=== PATIENT | female | born 1965 | race Hispanic/Latino ===

== ENCOUNTER 2018-04-09 10:15 | Day surgery (SDC) | payer OTHER ==
[2018-04-07 17:13] LABS: Absolute Lymphocytes (CBC) 3.2 K/uL (0.7-4.9); Absolute Monocytes 0.5 K/uL (0.1-1.3); Basophils % 1.1 % (0-1.3); Eosinophils % 0.7 % (0-4.4); Hematocrit 43.3 % (36.0-45.0); Lymphocytes % 32.4 % (15.3-44.8); MCH 29.4 pg (27.0-35.0); MCV 88.6 fL (80-100); MPV 9.8 fL (7.6-11.3); Monocytes % 5.5 % (3.3-12.3); RBC Red Blood Cell Count 4.88 M/uL (3.86-4.86)
[2018-04-07 17:45] LABS: BUN Blood Urea Nitrogen 15 mg/dL (6-20); Bicarbonate 26 mEq/L (21-31); Potassium 4.5 mEq/L (3.6-5.0); Sodium Level 129 mEq/L (135-145)
[2018-04-07 17:52] LABS: Glucose Level 518 mg/dL (65-120)
--- NOTE | 2018-04-07 23:01 | EKG ---
Test Date: 2018-04-07 Test Time: 16:39:27 Sales Assoc: DELBERT MEASUREMENT RESULTS: Intervals: Rate: 86 MT: 140 QRSD: 84 QT: 392 QTc: 469 [place]: P: 50 MT: 140 QRS: -9 T: 30 INTERPRETIVE STATEMENTS: Normal sinus rhythm Possible Left atrial enlargement Borderline ECG Compared to ECG 10/24/2017 18:30:26 Prolonged QT interval no longer present Electronically Signed On 04-07-18 22:59:54 CDT by Ryder Benjamin
--- OUTSIDE RECORDS SUMMARY | 2018-04-09 10:18 | XMS REPORT | Clinical Summary ---
:1965 Author Organization [facility] Address [address] [place] [address] Care Team Providers Name Role Phone Arslan Cote MD Primary Care Provider Allergies No Known Allergies Current Medications Prescription Sig. Disp. Refills Start Date End Date Status insulin detemir Inject 40 Active (LEVEMIR) 100 Units under unit/mL injection the skin 2 (two) times a day. insulin ASPART Inject 20 Active (NovoLOG) 100 Units under unit/mL injection the skin 3 (three) times a day before meals. aspirin (ECOTRIN) Take 81 mg by Active 81 MG enteric mouth daily. coated tablet estrogens, Take 0.625 mg Active conjugated, by mouth (PREMARIN) 0.625 MG daily. Patient tablet takes daily metFORMIN Take 1,000 mg Active (GLUCOPHAGE) 1,000 by mouth daily mg tablet with breakfast. gabapentin Take 600 mg by Active (NEURONTIN) 300 mg mouth nightly. capsule acyclovir (ZOVIRAX) Take 800 mg by Active 800 MG tablet mouth daily. diltiazem CD Take 240 mg by Active (CardIZEM CD) 240 mouth every MG 24 hr capsule evening. pantoprazole Take 40 mg by Active (PROTONIX) 40 MG EC mouth daily. tablet metoprolol tartrate Take 25 mg by Active (LOPRESSOR) 25 mg mouth 2 (two) tablet times a day. lisinopril Take 5 mg by Active (PRINIVIL,ZESTRIL) mouth daily. 5 mg tablet simvastatin (ZOCOR) Take 20 mg by 07/13/2017 Discontinued 20 MG tablet mouth nightly. atorvastatin Take 1 tablet 30 tablet 0 07/13/2017 08/12/2017 (LIPITOR) 40 MG (40 mg total) tablet by mouth nightly for 30 days. Active Problems Problem Noted Date Chest pain 07/12/2017 Palpitations 07/12/2017 Encounters Date Type Specialty Care Team Description 07/13/2017 Documentation General Internal Andrew Stack RN 07/13/2017 Documentation General Internal Andrew Stack RN 07/13/2017 Nurse Only General Internal Andrew Stack RN 07/13/2017 Procedure Pass Procedural Cardiology 07/13/2017 Surgery Procedural Jj Guevara Cv selective coronary Cardiology MD Tanisha angiography [36926 (CPT)] 07/12/2017 - Emergency General Internal Tri, [facility] Palpitations (Primary Dx); 07/13/2017 Andrew Little MD Chest pain, unspecified type; Kaila Levi MD SOB (shortness of breath); Uncontrolled type 2 diabetes mellitus with complication, with long- term current use of insulin after 04/08/2017 Immunizations Name Dates Previously Given Next Due FLUCELVAX QUAD PF (0.5mL syringe) 07/13/2017 Pneumococcal Conjugate 13-Valent 07/13/2017 Social History Tobacco Use Types Packs/Day Years Used Date Never Smoker Alcohol Use Drinks/Week oz/Week Comments No Sex Assigned at Date Recorded Not on file Last Filed Vital Signs Vital Sign Reading Time Taken Blood Pressure 138/73 07/13/2017 7:49 PM CDT Pulse 75 07/13/2017 7:49 PM CDT Temperature 36.4 C (97.5 F) 07/13/2017 7:49 PM CDT Respiratory Rate 18 07/13/2017 7:49 PM CDT Oxygen Saturation 95% 07/13/2017 7:49 PM CDT Inhaled Oxygen Concentration - - Weight - - Height 152.4 cm (5') 07/12/2017 3:37 PM CDT Body Mass Index - - Plan of Treatment Health Maintenance Due Date Last Done Comments DIABETIC FOOT EXAM 1974 DIABETIC RETINAL EYE EXAM 1974 URINE MICROALBUMIN 1974 CERVICAL CANCER SCREENING 1985 BREAST CANCER SCREENING 2014 COLON CANCER SCREENING 2014 SHINGRIX VACCINE (#1) 2014 INFLUENZA VACCINE 05/26/2018 07/13/2017 Procedures Procedure Name Priority Date/Time Associated Comments Diagnosis CV SELECTIVE CORONARY Routine 07/13/2017 4:14 Results for this ANGIOGRAPHY PM CDT procedure are in the results section. after 04/08/2017 Results POC glucose (07/13/2017 9:44 PM)Only the most recent of5 resultswithin the time period is included. 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 Component Value Ref Range Ventricular rate 89 Atrial rate 89 [place] interval 154 QRSD interval 76 QT interval 388 QTC interval 472 P axis 1 36 QRS axis 1 -9 T wave axis 17 EKG impression Normal sinus rhythm-Normal ECG-In automated comparison with ECG of 13-JUL-2017 05:50,-No significant change was found- Specimen Performing Laboratory [facility] MUSE [address] [place] [address] CBC with platelet and differential (07/13/2017 7:39 AM)Only the most recent of2 resultswithin the time period is included. Component Value Ref Range WBC 10.11 4.50 - 11.00 k/uL RBC 4.20 4.20 - 5.50 m/uL HGB 12.7 12.0 - 16.0 g/dL HCT 38.4 37.0 - 47.0 % MCV 91.4 82.0 - 100.0 fL MCH 30.2 27.0 - 34.0 pg MCHC 33.1 31.0 - 37.0 g/dL RDW - SD 45.1 37.0 - 55.0 fL MPV 10.9 8.8 - 13.2 fL Platelet count 368 150 - 400 k/uL Nucleated RBC 0.00 /100 WBC Neutrophils 63.5 39.0 - 69.0 % Lymphocytes 29.9 25.0 - 45.0 % Monocytes 4.6 0.0 - 10.0 % Eosinophils 1.3 0.0 - 5.0 % Basophils 0.4 0.0 - 1.0 % Immature granulocytes 0.3Comment: "Immature granulocytes" 0.0 - 1.0 % (promyelocytes, myelocytes, metamyelocytes) Specimen Performing Laboratory Blood [facility] DEPARTMENT OF PATHOLOGY AND GENOMIC MEDICINE [address] [place] [address] Hemoglobin A1c (07/13/2017 7:39 AM) Component Value Ref Range Hemoglobin A1C 8.8 (H) 4.0 - 5.6 % Comment: HbA1c cutoffs for diagnosing diabetes: 4.0% - 5.6%=normal 5.7% - 6.4%=increased risk for diabetes (prediabetes) >=6.5%=diabetes Goals for glycemic control (ADA 2016) < 7.0%Target for non adults with diabetes. More or less stringent targets may be appropriate for individual patients. <7.5% Target for Children and adolescents with type 1 diabetes. Specimen Performing Laboratory Blood [facility] DEPARTMENT OF PATHOLOGY AND GENOMIC MEDICINE [address] [place] [address] Estimated GFR (07/13/2017 4:00 AM)Only the most recent of2 resultswithin the time period is included. Component Value Ref Range GFR Non Af Amer >90 mL/min/1.73 m2 GFR Af Amer >90 mL/min/1.73 m2 Comment: Chronic kidney disease: <60 mL/min/1.73m2 Kidney failure: <15 mL/min/1.73m2 The estimated GFR is calculated from the IDMS-traceable Modification of Diet in Renal Disease Equation. The accuracy of the calculation is poor when the creatinine is normal. Calculated values >90 mL/min/1.73m2 are not reported. This equation has not been validated in children (<18 years), women, the elderly (>70 years), or ethnic groups other than Caucasians and Americans. Specimen Performing Laboratory Plasma specimen [facility] DEPARTMENT OF PATHOLOGY AND GENOMIC MEDICINE [address] [place] [address] Troponin (07/13/2017 4:00 AM)Only the most recent of3 resultswithin the time period is included. Component Value Ref Range Troponin <0.30 0.00 - 0.30 ng/mL Comment: 0.30 - 1.49 ng/mlMay indicate increased risk of acute coronary syndrome. >=1.5 ng/mlConsistent with acute myocardial infarction. The diagnostic value of a single normal or non-diagnostic result is questionable.Serial samples at 2-6 hour intervals are required to rule out acute myocardial injury. Specimen Performing Laboratory Plasma specimen [facility] DEPARTMENT OF PATHOLOGY AND GENOMIC MEDICINE [address] [place] [address] Thyroid stimulating hormone (07/13/2017 4:00 AM) Component Value Ref Range TSH 1.36 0.27 - 4.20 uIU/mL Specimen Performing Laboratory Plasma specimen [facility] DEPARTMENT OF PATHOLOGY AND GENOMIC MEDICINE [address] [place] [address] Lactic acid level (07/13/2017 4:00 AM)Only the most recent of2 resultswithin the time period is included. Component Value Ref Range Lactic acid 2.0 0.5 - 2.2 mmol/L Specimen Performing Laboratory Blood [facility] DEPARTMENT OF PATHOLOGY AND GENOMIC MEDICINE [address] [place] [address] Lipid panel (07/13/2017 4:00 AM) Component Value Ref Range Cholesterol 125 <200 mg/dL Triglycerides 514 (H) <150 mg/dL HDL cholesterol 28 (L) >40 mg/dL LDL cholesterol 41Comment: Result obtained by direct LDL <100 mg/dL measurement Lipid panel interpretation SeeBelow Comment: Total Cholesterol (mg/dL) <200 Desirable 196-930Nvinnlwcpl-wzhg >=240High Triglycerides (mg/dL) <150 Normal 226-924Drwoawcvel-fsvf 200-499High >=500Very high HDL Cholesterol (mg/dL) <40Low (male) <40Low (female) LDL Cholesterol (mg/dL) <100 Optimal 100-129Near or above optimal 886-047Ignvsvxjht-ueqm 160-189High >=190Very high Risk Catergories that modify LDL goals. Risk CatergoriesLDL goal (mg/dL) CHD and CHD risk equivalent<100 (10-year risk >20%) Multiple (2+) risk factors <130 (10-year risk=<20%) 0-1 risk factors <160 (<10-year risk) Defining levels of lipids in metabolic syndrome Triglycerides>=150 mg/dL HDL Cholesterol Men<40 mg/dL Women<40 mg/dL Non-HDL cholesterol is a second target for therapy in persons with high triglycerides (>=200 mg/dL) Specimen Performing Laboratory Plasma specimen [facility] DEPARTMENT OF PATHOLOGY AND [facility] MEDICINE [address] [place] [address] Basic metabolic panel (07/13/2017 4:00 AM) Component Value Ref Range Sodium 136 135 - 148 mEq/L Potassium 3.9 3.5 - 5.0 mEq/L Chloride 98 98 - 112 mEq/L CO2 22 (L) 24 - 31 mEq/L Anion gap 16 (H) 7 - 15 mEq/L Comment: Starting from January , anion gap calculation no longer incorporates potassium. Please note the change. BUN 13 6 - 20 mg/dL Creatinine 0.4 (L) 0.5 - 0.9 mg/dL Glucose 278 (H) 65 - 99 mg/dL Calcium 8.8 8.3 - 10.2 mg/dL Specimen Performing Laboratory Plasma specimen [facility] DEPARTMENT OF PATHOLOGY AND [facility] MEDICINE [address] [place] [address] Urinalysis, automated with microscopy (07/13/2017 3:40 AM) Component Value Ref Range Color, UA Yellow Appearance, UA Clear Specific gravity, UA 1.022 1.001 - 1.035 pH, UA 5.0 5.0 - 8.5 Protein, UA Negative Negative Glucose, UA 3+ (A) Negative Ketones, UA Negative Negative Bilirubin, UA Negative Negative Blood, UA Negative Negative Nitrite, UA Negative Negative Urobilinogen, UA <2.0 <2.0 Leukocyte esterase, UA Negative Negative Epithelial cells, UA 5 /HPF WBC, UA 2 0 - 4 /HPF RBC, UA 1 0 - 2 /HPF Bacteria, UA Few None seen Yeast, UA None seen Yeast with pseudohyphae, UA None seen Specimen Performing Laboratory Urine [facility] DEPARTMENT OF PATHOLOGY AND [facility] MED[facility] [address] [place] [address] Beta hydroxybutyrate (07/12/2017 10:42 PM) Component Value Ref Range Beta hydroxybutyrate 0.40 (H) 0.02 - 0.27 mmol/L Specimen Performing Laboratory Serum [facility] DEPARTMENT OF PATHOLOGY AND [address] [address] Magnesium level (07/12/2017 10:42 PM) Component Value Ref Range Magnesium 1.9 1.6 - 2.6 mg/dL Specimen Performing Laboratory Blood [facility] DEPARTMENT OF PATHOLOGY AND [facility] MED[facility] [address] [place] [address] Ionized calcium (07/12/2017 10:42 PM) Component Value Ref Range pH 7.46 Ionized calcium 1.07 (L) 1.11 - 1.32 mmol/L Specimen Performing Laboratory Blood [facility] DEPARTMENT OF PATHOLOGY AND [address] [address] Partial thromboplastin time, activated (07/12/2017 4:30 PM) Component Value Ref Range PTT 28.7 23.0 - 36.0 sec Comment: PTT therapeutic range for unfractionated heparin is 61.0-112.0 seconds which corresponds to Anti-Xa 0.3-0.7 U/ml. Specimen Performing Laboratory Blood [facility] DEPARTMENT PATHOLOGY [address] [address] Prothrombin time with INR (07/12/2017 4:30 PM) Component Value Ref Range Prothrombin time 11.2 (L) 12.0 - 15.0 sec INR 0.8 Comment: The International Normalized Ratio (INR) is a therapeutic monitoring tool for patients who are stable on oral anticoagulant therapy. An INR of 2.0-3.0 is suggested for deep vein thrombosis/pulmonary embolism. Specimen Performing Laboratory Blood [facility] DEPARTMENT OF PATHOLOGY AND [facility] MED[facility] [address] [place] [address] B natriuretic peptide (07/12/2017 4:30 PM) Component Value Ref Range BNP 33 0 - 100 pg/mL Specimen Performing Laboratory Blood [facility] PATHOLOGY [address] [address] Creatine kinase, total (CPK) (07/12/2017 4:30 PM) Component Value Ref Range Creatine kinase 48 26 - 192 U/L Specimen Performing Laboratory Plasma specimen [facility] DEPARTMENT OF PATHOLOGY AND [address] [address] Comprehensive metabolic panel (07/12/2017 4:30 PM) Component Value Ref Range Sodium 142 135 - 148 mEq/L Potassium 3.9 3.5 - 5.0 mEq/L Chloride 101 98 - 112 mEq/L CO2 22 (L) 24 - 31 mEq/L Anion gap 19 (H) 7 - 15 mEq/L Comment: Starting from January , anion gap calculation no longer incorporates potassium. Please note the change. BUN 10 6 - 20 mg/dL Creatinine 0.2 (L) 0.5 - 0.9 mg/dL Glucose 204 (H) 65 - 99 mg/dL Calcium 7.6 (L) 8.3 - 10.2 mg/dL Protein 7.2 6.3 - 8.3 g/dL Comment: [place] 4.6-7.0 g/dL 1 week 4.4-7.6 g/dL 7 months-1year5.1-7.3 g/dL 1-2 years5.6-7.5 g/dL >3 years6.0-8.0 g/dL 18-150 6.3-8.3 g/dL Albumin 3.6 3.5 - 5.0 g/dL A/G ratio 1.0 0.7 - 3.8 Alkaline phosphatase 103 35 - 104 U/L AST 21 10 - 35 U/L ALT 19 5 - 50 U/L Total bilirubin <0.2 0.0 - 1.2 mg/dL Specimen Performing Laboratory Plasma specimen [facility] DEPARTMENT OF PATHOLOGY AND GENOMIC MEDICINE [address] [place] [address] XR Chest 2 Vw (07/12/2017 4:24 PM) Specimen Performing Laboratory [facility] [address] [place] [address] Narrative EXAMINATION:XR CHEST 2 VW CLINICAL HISTORY:Chest Tube Removal COMPARISON:None IMPRESSION: 1.Lungs are clear and the heart size is normal. 2.The vessels are not congested. There are no pleural effusions. [facility]-[id number] Procedure Note Interface, Radiology Results Incoming - 07/12/2017 4:29 PM CDT EXAMINATION: XR CHEST 2 VW CLINICAL HISTORY: Chest Tube Removal COMPARISON: None IMPRESSION: 1. Lungs are clear and the heart size is normal. 2. The vessels are not congested. There are no pleural effusions. [facility]-[id number] after 04/08/2017 Insurance Payer Benefit Plan / Group Subscriber ID Type Phone Address MEDICARE MEDICARE PART A AND B xxxxxxxxxx Medicare [place], [place] Home: [address] [phone] [place], [place] [id number]
[2018-04-09] MEDS ORDERED: LIDOCAINE 1% W/EPI 1:100,000 MDV 50 ML VIAL ONE (10:23)
[2018-04-09] MEDS ORDERED: CEFAZOLIN/SWI 1gm 1 GM/10 ML SYR ONE (10:29)
[2018-04-09] MEDS ORDERED: NA CHLORIDE 0.9% 1,000 ML ONE (10:29)
[2018-04-09] MEDS ORDERED: FENTANYL CITR 100 MCG/2 ML ONE (11:32)
[2018-04-09] MEDS ORDERED: MIDAZOLAM HCL 2 MG/2 ML INJ ONE (11:32)
[2018-04-09] MEDS ORDERED: LIDOCAINE 1% MPF 5 ML VIAL ONE (11:32)
[2018-04-09] MEDS ORDERED: PROPOFOL 200 MG/20 ML VIAL IV ONE (11:32)
[2018-04-09] MEDS ORDERED: TRIAMCINOLONE ACETON 40 MG/ML VIAL ONE ×2 (11:36→11:55)
[2018-04-09] MEDS ORDERED: BUPIVACA 0.5%/EPI 0.0005%/PF 10 ML VIAL ONE (11:40)
[2018-04-09] MEDS ORDERED: ROCURONIUM 50 MG/5 ML VIAL IV ONE (11:52)
[2018-04-09] MEDS ORDERED: KETOROLAC 30 MG/ML INJ ONE (12:03)
--- NOTE | 2018-04-09 12:14 | P.BOP ---
Preoperative diagnosis: left shoulder adhesive capsulitis with rotator cuff pathology Postoperative diagnosis: same Primary procedure: left shoulder manipulation under anesthesia Estimated blood loss: 0 ccs Anesthesia: General Complications: None Transferred to: Recovery Room Condition: Good
[2018-04-09] MEDS ORDERED: SUCCINYLCHOLINE 20 MG/ML (10 ML) IV ONE (12:15)
[2018-04-09] MEDS: MEPERIDINE HCL 25 MG/0.5 ML ONE ×2 (12:36→12:41)
--- NOTE | 2018-04-09 12:42 | RAD REPORT ---
EXAM DESCRIPTION: RAD - Shoulder Left 2 View - 04/09/2018 12:26 pm CLINICAL HISTORY: EUA SHOULDER Pain COMPARISON: No comparisons FINDINGS: Fluoroscopic imaging is submitted from EUA procedure of the left shoulder. Two static expo sures were obtained.
[2018-04-09] MEDS ORDERED: CODEINE 30MG/APAP 300MG TAB ONE (13:34)
[2018-04-09 13:38] VITALS: BP 115/78; TEMP 97.4; O2SAT 98
--- NOTE | 2018-04-10 01:05 | OP ---
Date of Procedure: 04/09/2018 Surgeon: Kenrick Mcdonough MD Preoperative Diagnosis: Probable left shoulder adhesive capsulitis with accompanying impingement and rotator cuff pathology. Postoperative Diagnosis: Probable left shoulder adhesive capsulitis with accompanying impingement an d rotator cuff pathology. Procedure: Left shoulder manipulation under anesthesia. Estimated Blood Loss: Zero cc. Complications: There were no complications. Specimens: No pathology specimens sent. It should also be noted there was an injection of Marcaine with epinephrine as well as Kenalog at the conclusion of the case. Indication For Operation: Ms. Crow is a patient who has been having shoulder pain for approximately 3 months. This occurred without incident, gradually becoming worse and worse. This continued despi te an injection as well as other conservative means. MRI does demonstrate some rotator cuff patholog y, however, limitations of motion are fairly significant including inability to externally rotate pas t neutral, also elevation and abduction of approximately 120 degrees. It is felt that she is most li hailey suffering from frozen shoulder with rotator cuff pathology. I have discussed with fabienne caceres her and her family that operating on rotator cuff pathology in this age group is to be avoided if possible, and that her primary pathology may be a frozen shoulder. Also we would not like to operate on the rotator cuff in the presence of a frozen shoulder. Therefore, will proceed with examination under anesthesia, and manipulation under anesthesia if needed. If the shoulder is not limited by any adhesive banding, then we would pursue operative intervention of the rotator cuff. They state they understand everything as presented and wished to proceed. Description Of Procedure: The patient was taken to the operating room. She is in the supine positio n. General anesthesia was obtained by Anesthesia staff. This was followed by application of paralyt ic. Following this, the arm was then examined. It was lifted to approximately 140 degrees. There i s some fairly faint crepitation, which is consistent with frozen shoulder at approximately 140 degree s, and then fairly easily can move it up to 180 degrees of elevation. After this, attention has been turned to external rotation in the elevated position with anterior pressure, to avoid dislocation is performed. There was a rather more significant feeling of release of adhesive bands with this exter nal rotation, then bringing it down to neutral external rotation is done with even more at this time fairly significant release of adhesive banding. Following this, it was then brought through a full r erickson of motion and now thus have full easy range of motion throughout. A C-arm picture was taken, wh ich demonstrates no dislocation or injury to the proximal humerus. An injection of Marcaine as well as corticosteroids has been placed in the subacromial space using sterile technique. The patient was then awakened, and taken to the recovery room in good condition. There were no complications. RICH Voice ID: [id number] Report ID: [id number]
== END 2018-04-09 13:59 | disposition home or self-care (01) ==
LOC: OR 10:15
PROVIDERS: ATTEND Orthopaedic Surgery
PROC: 0RNKXZZ Release Left Shoulder Joint, External Approach (ICD-10-PCS; principal; 2018-04-09 11:30)
DX: M75.02 Adhesive capsulitis of left shoulder (principal); M75.42 Impingement syndrome of left shoulder; E11.9 Type 2 diabetes mellitus without complications; I10 Essential (primary) hypertension
CPT/HCPCS: 23700; 36415; 73030; 80048; 82962 ×2; 85025; 93005; J0330; J2175; J2250; J3010; J3301 ×2; J7030; J0690

== ENCOUNTER 2018-06-21 10:46 | Observation (INO) | payer OTHER ==
--- OUTSIDE RECORDS SUMMARY | 2018-06-21 13:08 | XMS REPORT | Clinical Summary ---
:1965 Author Organization [facility] Address [address] [place] [address] Care Team Providers Name Role Phone Arslan [...] Cv selective coronary Cardiology MD Tanisha angiography [04977 (CPT)] 07/12/2017 - Emergency General Internal Tri, [facility] Palpitations (Primary Dx); 07/13/2017 Andrew Little MD Chest pain, unspecified type; Kaila Levi MD SOB (shortness of breath); Uncontrolled type 2 diabetes mellitus with complication, with long- term current use of insulin after 06/20/2017 Immunizations Name Dates Previously Given Next Due [...] Procedure Name Priority Date/Time Associated Comments Diagnosis POC GLUCOSE Routine 07/13/2017 9:44 Results for this PM CDT procedure are in the results section. POC GLUCOSE Routine 07/13/2017 4:43 Results for this PM CDT procedure are in the results section. CV SELECTIVE CORONARY Routine 07/13/2017 4:14 Results for this ANGIOGRAPHY PM CDT procedure are in the results section. POC GLUCOSE Routine 07/13/2017 11:53 Results for this AM CDT procedure are in the results section. ECG 12-LEAD STAT 07/13/2017 8:51 Results for this AM CDT procedure are in the results section. HC COMPLETE BLD COUNT Routine 07/13/2017 7:39 Results for this W/AUTO DIFF AM CDT procedure are in the results section. HEMOGLOBIN A1C Routine 07/13/2017 7:39 Results for this AM CDT procedure are in the results section. POC GLUCOSE Routine 07/13/2017 7:34 Results for this AM CDT procedure are in the results section. ECG 12-LEAD Routine 07/13/2017 5:50 Results for this AM CDT procedure are in the results section. ESTIMATED GFR Routine 07/13/2017 4:00 Results for this AM CDT procedure are in the results section. LACTIC ACID LEVEL Routine 07/13/2017 4:00 Results for this AM CDT procedure are in the results section. BASIC METABOLIC PANEL Routine 07/13/2017 4:00 Results for this AM CDT procedure are in the results section. TROPONIN Routine 07/13/2017 4:00 Results for this AM CDT procedure are in the results section. THYROID STIMULATING Routine 07/13/2017 4:00 Results for this HORMONE AM CDT procedure are in the results section. LIPID PANEL Routine 07/13/2017 4:00 Results for this AM CDT procedure are in the results section. URINALYSIS, AUTOMATED Routine 07/13/2017 3:40 Results for this WITH MICROSCOPY AM CDT procedure are in the results section. POC GLUCOSE Routine 07/12/2017 10:56 Results for this PM CDT procedure are in the results section. IONIZED CALCIUM STAT 07/12/2017 10:42 Results for this PM CDT procedure are in the results section. MAGNESIUM LEVEL STAT 07/12/2017 10:42 Results for this PM CDT procedure are in the results section. LACTIC ACID LEVEL STAT 07/12/2017 10:42 Results for this PM CDT procedure are in the results section. BETA HYDROXYBUTYRATE STAT 07/12/2017 10:42 Results for this PM CDT procedure are in the results section. TROPONIN STAT 07/12/2017 10:42 Results for this PM CDT procedure are in the results section. PARTIAL THROMBOPLASTIN STAT 07/12/2017 4:30 Results for this TIME (PTT) PM CDT procedure are in the results section. ESTIMATED GFR STAT 07/12/2017 4:30 Results for this PM CDT procedure are in the results section. B NATRIURETIC PEPTIDE STAT 07/12/2017 4:30 Results for this PM CDT procedure are in the results section. TROPONIN STAT 07/12/2017 4:30 Results for this PM CDT procedure are in the results section. CREATINE KINASE, TOTAL STAT 07/12/2017 4:30 Results for this (CPK) PM CDT procedure are in the results section. COMPREHENSIVE METABOLIC STAT 07/12/2017 4:30 Results for this PANEL PM CDT procedure are in the results section. PROTHROMBIN TIME WITH STAT 07/12/2017 4:30 Results for this INR PM CDT procedure are in the results section. HC COMPLETE BLD COUNT STAT 07/12/2017 4:30 Results for this W/AUTO DIFF PM CDT procedure are in the results section. XR CHEST 2 VW STAT 07/12/2017 4:24 Results for this PM CDT procedure are in the results section. ECG 12-LEAD STAT 07/12/2017 3:42 Results for this PM CDT procedure are in the results section. after 06/20/2017 Results POC glucose (07/13/2017 9:44 PM)Only the most recent of5 resultswithin the time period is included. 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 Ventricular rate 89 [facility] Atrial rate 89 [facility] OK interval 154 [facility] QRSD interval 76 [facility] QT interval 388 [facility] QTC interval 472 [facility] P axis 1 36 [facility] QRS axis 1 -9 [facility] T wave axis 17 [facility] EKG impression Normal sinus rhythm-Normal ECG-In automated [facility] comparison with ECG of 13-JUL-2017 05:50,-No significant change was found- Performing Organization Address City/State/Zipcode Phone Number [facility] [address] [place] [address] CBC with platelet and differential (07/13/2017 7:39 AM)Only the most recent of2 resultswithin the time period is included. WBC 10.11 4.50 - 11.00 k/uL [facility] DEPARTMENT OF PATHOLOGY AND GENOMIC MEDICINE RBC 4.20 4.20 - 5.50 m/uL [facility] OF PATHOLOGY AND GENOMIC MEDICINE HGB 12.7 12.0 - 16.0 g/dL [facility] OF PATHOLOGY AND GENOMIC MEDICINE HCT 38.4 37.0 - 47.0 % [facility]MENT OF PATHOLOGY AND GENOMIC MEDICINE MCV 91.4 82.0 - 100.0 fL [facility] OF PATHOLOGY AND GENOMIC MEDICINE MCH 30.2 27.0 - 34.0 pg [facility]MENT OF PATHOLOGY AND GENOMIC MEDICINE MCHC 33.1 31.0 - 37.0 g/dL [facility] OF PATHOLOGY AND GENOMIC MEDICINE RDW - SD 45.1 37.0 - 55.0 fL [facility]MENT OF PATHOLOGY AND GENOMIC MEDICINE MPV 10.9 8.8 - 13.2 fL [facility] OF PATHOLOGY AND GENOMIC MEDICINE Platelet count 368 150 - 400 k/uL [facility] DE[facility]MENT OF PATHOLOGY AND GENOMIC MEDICINE Nucleated RBC 0.00 /100 WBC [facility] DE[facility]MENT OF PATHOLOGY AND GENOMIC MEDICINE Neutrophils 63.5 39.0 - 69.0 % [facility] OF PATHOLOGY AND GENOMIC MEDICINE Lymphocytes 29.9 25.0 - 45.0 % [facility] DE[facility] OF PATHOLOGY AND GENOMIC MEDICINE Monocytes 4.6 0.0 - 10.0 % [facility] OF PATHOLOGY AND GENOMIC MEDICINE Eosinophils 1.3 0.0 - 5.0 % [facility] OF PATHOLOGY AND GENOMIC MEDICINE Basophils 0.4 0.0 - 1.0 % [facility] OF PATHOLOGY AND GENOMIC MEDICINE Immature granulocytes 0.3Comment: 0.0 - 1.0 % [facility] DEPARTMENT OF "Immature PATHOLOGY AND GENOMIC granulocytes" MEDICINE (promyelocytes, myelocytes, metamyelocytes) Specimen Blood Performing Organization Address City/[facility] Phone Number [facility] DE[facility] OF PATHOLOGY AND [address] [place] [address] Hemoglobin A1c (07/13/2017 7:39 AM) Hemoglobin A1C 8.8 (H) 4.0 - 5.6 % [facility] PATHOLOGY Comment: AND GENOMIC MEDICINE HbA1c cutoffs for diagnosing diabetes: 4.0% - 5.6%=normal 5.7% - 6.4%=increased risk for diabetes (prediabetes) >=6.5%=diabetes Goals for glycemic control (ADA 2016) < 7.0%Target for non adults with diabetes. More or less stringent targets may be appropriate for individual patients. <7.5% Target for Children and adolescents with type 1 diabetes. Specimen Blood Performing Organization Address [facility] Phone Number [facility] DEPARTMENT PATHOLOGY AND [address] [place], [place] [id number] [facility] Estimated GFR (07/13/2017 4:00 AM)Only the most recent of2 resultswithin the time period is included. GFR Non Af Amer >90 mL/min/1.73 m2 [facility] DEPARTMENT OF PATHOLOGY AND GENOMIC MEDICINE GFR Af Amer >90 mL/min/1.73 m2 [facility] DEPARTMENT OF Comment: PATHOLOGY AND GENOMIC Chronic kidney disease: <60 mL/min/1.73m2 MEDICINE Kidney failure: <15 mL/min/1.73m2 The estimated GFR is calculated from the IDMS-traceable Modification of Diet in Renal Disease Equation. The accuracy of the calculation is poor when the creatinine is normal. Calculated values >90 mL/min/1.73m2 are not reported. This equation has not been validated in children (<18 years), women, the elderly (>70 years), or ethnic groups other than Caucasians and Americans. Specimen Plasma specimen Performing Organization Address City/[facility] Phone Number [facility] DEPARTMENT OF PATHOLOGY AND [address] [place] [address] Kira Talent MEDICINE Troponin (07/13/2017 4:00 AM)Only the most recent of3 resultswithin the time period is included. Troponin <0.30 0.00 - 0.30 ng/mL [facility] DE[facility] OF PATHOLOGY Comment: AND GENOMIC MEDICINE 0.30 - 1.49 ng/mlMay indicate increased risk of acute coronary syndrome. >=1.5 ng/mlConsistent with acute myocardial infarction. The diagnostic value of a single normal or non-diagnostic result is questionable.Serial samples at 2-6 hour intervals are required to rule out acute myocardial injury. Specimen Plasma specimen Performing Organization Address City/[facility]/Zipcode Phone Number [facility] DEPARTMENT OF PATHOLOGY AND [address] [place] [address] Thyroid stimulating hormone (07/13/2017 4:00 AM) TSH 1.36 0.27 - 4.20 uIU/mL [facility] DEPARTMENT OF PATHOLOGY AND GENOMIC MEDICINE Specimen Plasma specimen Performing Organization Address City/[facility] Phone Number [facility] DE[facility]MENT OF PATHOLOGY AND [address] [place] [address] Lactic acid level (07/13/2017 4:00 AM)Only the most recent of2 resultswithin the time period is included. Lactic acid 2.0 0.5 - 2.2 mmol/L [facility] DEPARTMENT OF PATHOLOGY AND GENOMIC MEDICINE Specimen Blood Performing Organization Address [facility] Phone Number [facility] DE[facility]MENT OF PATHOLOGY AND [address] [place] [address] Kira Talent MEDICINE Lipid panel (07/13/2017 4:00 AM) Cholesterol 125 <200 mg/dL [facility] DE[facility]MENT OF PATHOLOGY AND GENOMIC MEDICINE Triglycerides 514 (H) <150 mg/dL [facility] DE[facility] OF PATHOLOGY AND GENOMIC MEDICINE HDL cholesterol 28 (L) >40 mg/dL [facility] DE[facility] OF PATHOLOGY AND GENOMIC MEDICINE LDL cholesterol 41Comment: Result <100 mg/dL [facility] DEPARTMENT OF obtained by direct LDL PATHOLOGY AND GENOMIC measurement MEDICINE Lipid panel interpretation SeeBelow [facility] DEPARTMENT OF Comment: PATHOLOGY AND GENOMIC Total Cholesterol (mg/dL) MEDICINE <200 Desirable [id number]-lfyn >=240High Triglycerides (mg/dL) <150 Normal [id number]-sptf 200-499High >=500Very high HDL Cholesterol (mg/dL) <40Low (male) <40Low (female) LDL Cholesterol (mg/dL) <100 Optimal 100-129Near or above optimal [id number]-atws 160-189High >=190Very high Risk Catergories that modify [...] persons with high triglycerides (>=200 mg/dL) Specimen Plasma specimen Performing Organization Address City/[facility] Phone Number [facility] DEPARTMENT OF PATHOLOGY AND [address] [place] [phone] [facility] Basic metabolic panel (07/13/2017 4:00 AM) Sodium 136 135 - 148 mEq/L [facility] DEPARTMENT OF PATHOLOGY AND GENOMIC MEDICINE Potassium 3.9 3.5 - 5.0 mEq/L [facility] DEPARTMENT OF PATHOLOGY AND GENOMIC MEDICINE Chloride 98 98 - 112 mEq/L [facility] DEPARTMENT OF PATHOLOGY AND GENOMIC MEDICINE CO2 22 (L) 24 - 31 mEq/L [facility]MENT OF PATHOLOGY AND GENOMIC MEDICINE Anion gap 16 (H) 7 - 15 mEq/L [facility] PATHOLOGY Comment: [facility] Starting from January , anion gap calculation no longer incorporates potassium. Please note the change. BUN 13 6 - 20 mg/dL [facility] DEPARTMENT OF PATHOLOGY AND GENOMIC MEDICINE Creatinine 0.4 (L) 0.5 - 0.9 mg/dL [facility] DE[facility]MENT OF PATHOLOGY AND GENOMIC MEDICINE Glucose 278 (H) 65 - 99 mg/dL [facility]MENT OF PATHOLOGY AND GENOMIC MEDICINE Calcium 8.8 8.3 - 10.2 mg/dL [facility] DEPARTMENT OF PATHOLOGY AND GENOMIC MEDICINE Specimen Plasma specimen Performing Organization Address City/[facility] Phone Number [facility] DEPARTMENT OF PATHOLOGY AND [address] [place] [phone] [facility] Urinalysis, automated with microscopy (07/13/2017 3:40 AM) Color, UA Yellow [facility] DEPARTMENT OF PATHOLOGY AND GENOMIC MEDICINE Appearance, UA Clear [facility] DEPARTMENT OF PATHOLOGY AND GENOMIC MEDICINE Specific gravity, UA 1.022 1.001 - 1.035 [facility] DEPARTMENT OF PATHOLOGY AND GENOMIC MEDICINE pH, UA 5.0 5.0 - 8.5 [facility]MENT OF PATHOLOGY AND GENOMIC MEDICINE Protein, UA Negative Negative [facility] DE[facility]MENT OF PATHOLOGY AND GENOMIC MEDICINE Glucose, UA 3+ (A) Negative [facility]MENT OF PATHOLOGY AND GENOMIC MEDICINE Ketones, UA Negative Negative [facility]MENT OF PATHOLOGY AND GENOMIC MEDICINE Bilirubin, UA Negative Negative [facility]MENT OF PATHOLOGY AND GENOMIC MEDICINE Blood, UA Negative Negative [facility]MENT OF PATHOLOGY AND GENOMIC MEDICINE Nitrite, UA Negative Negative [facility]MENT OF PATHOLOGY AND GENOMIC MEDICINE Urobilinogen, UA <2.0 <2.0 [facility]MENT OF PATHOLOGY AND GENOMIC MEDICINE Leukocyte esterase, UA Negative Negative [facility]MENT OF PATHOLOGY AND GENOMIC MEDICINE Epithelial cells, UA 5 /HPF [facility] DEPARTMENT OF PATHOLOGY AND GENOMIC MEDICINE WBC, UA 2 0 - 4 /HPF [facility] DE[facility]MENT OF PATHOLOGY AND GENOMIC MEDICINE RBC, UA 1 0 - 2 /HPF [facility] DE[facility]MENT OF PATHOLOGY AND GENOMIC MEDICINE Bacteria, UA Few None seen [facility] DE[facility]MENT OF PATHOLOGY AND GENOMIC MEDICINE Yeast, UA None seen [facility] DE[facility]MENT OF PATHOLOGY AND GENOMIC MEDICINE Yeast with pseudohyphae, UA None seen [facility] DE[facility]MENT OF PATHOLOGY AND GENOMIC MEDICINE Specimen Urine Performing Organization Address City/[facility] Phone Number [facility] DEPARTMENT OF PATHOLOGY AND [address] [place] [address] Beta hydroxybutyrate (07/12/2017 10:42 PM) Beta hydroxybutyrate 0.40 (H) 0.02 - 0.27 mmol/L [facility] DEPARTMENT OF PATHOLOGY AND GENOMIC MEDICINE Specimen Serum Performing Organization Address City/[facility] Phone Number [facility]MENT OF PATHOLOGY AND [address] [place] [address] Magnesium level (07/12/2017 10:42 PM) Magnesium 1.9 1.6 - 2.6 mg/dL [facility] DEPARTMENT OF PATHOLOGY AND GENOMIC MEDICINE Specimen Blood Performing Organization Address City/[facility] Phone Number [facility] DE[facility]MENT OF PATHOLOGY AND [address] [place] [address] Ionized calcium (07/12/2017 10:42 PM) pH 7.46 [facility] DEPARTMENT OF PATHOLOGY AND GENOMIC MEDICINE Ionized calcium 1.07 (L) 1.11 - 1.32 mmol/L [facility] DEPARTMENT OF PATHOLOGY AND GENOMIC MEDICINE Specimen Blood Performing Organization Address City/[facility] Phone Number [facility] DE[facility]MENT OF PATHOLOGY AND [address] [place] [address] Partial thromboplastin time, activated (07/12/2017 4:30 PM) PTT 28.7 23.0 - 36.0 sec [facility]MENT [facility] PATHOLOGY Comment: AND [facility] PTT therapeutic range for unfractionated heparin is 61.0-112.0 seconds which corresponds to Anti-Xa 0.3-0.7 U/ml. Specimen Blood Performing Organization Address City/[facility] Phone Number [facility]MENT OF PATHOLOGY AND [address] [place] [address] Prothrombin time with INR (07/12/2017 4:30 PM) Prothrombin time 11.2 (L) 12.0 - 15.0 sec [facility] DEPARTMENT OF PATHOLOGY AND GENOMIC MEDICINE INR 0.8 [facility] DEPARTMENT OF Comment: PATHOLOGY AND GENOMIC The International Normalized Ratio (INR) is a therapeutic MEDICINE monitoring tool for patients who are stable on oral anticoagulant therapy. An INR of 2.0-3.0 is suggested for deep vein thrombosis/pulmonary embolism. Specimen Blood Performing Organization Address [facility] Phone Number [facility] DE[facility]MENT OF PATHOLOGY AND [address] [place] [address] B natriuretic peptide (07/12/2017 4:30 PM) BNP 33 0 - 100 pg/mL [facility] DEPARTMENT OF PATHOLOGY AND GENOMIC MEDICINE Specimen Blood Performing Organization Address City/[facility] Phone Number [facility] DEPARTMENT OF PATHOLOGY AND [address] [place] [address] Creatine kinase, total (CPK) (07/12/2017 4:30 PM) Creatine kinase 48 26 - 192 U/L [facility] DEPARTMENT OF PATHOLOGY AND GENOMIC MEDICINE Specimen Plasma specimen Performing Organization Address [facility] Phone Number [facility] DE[facility]MENT OF PATHOLOGY AND [address] [place] [address] Comprehensive metabolic panel (07/12/2017 4:30 PM) Sodium 142 135 - 148 mEq/L [facility] DEPARTMENT OF PATHOLOGY AND GENOMIC MEDICINE Potassium 3.9 3.5 - 5.0 mEq/L [facility] DEPARTMENT OF PATHOLOGY AND GENOMIC MEDICINE Chloride 101 98 - 112 mEq/L [facility] DEPARTMENT OF PATHOLOGY AND GENOMIC MEDICINE CO2 22 (L) 24 - 31 mEq/L [facility] DEPARTMENT OF PATHOLOGY AND GENOMIC MEDICINE Anion gap 19 (H) 7 - 15 mEq/L [facility] DEPARTMENT OF Comment: PATHOLOGY AND GENOMIC Starting from January , anion gap calculation MEDICINE no longer incorporates potassium. Please note the change. BUN 10 6 - 20 mg/dL [facility] DEPARTMENT OF PATHOLOGY AND GENOMIC MEDICINE Creatinine 0.2 (L) 0.5 - 0.9 mg/dL [facility] DEPARTMENT OF PATHOLOGY AND GENOMIC MEDICINE Glucose 204 (H) 65 - 99 mg/dL [facility] DEPARTMENT OF PATHOLOGY AND GENOMIC MEDICINE Calcium 7.6 (L) 8.3 - 10.2 mg/dL [facility] DEPARTMENT OF PATHOLOGY AND GENOMIC MEDICINE Protein 7.2 6.3 - 8.3 g/dL [facility] DEPARTMENT OF Comment: PATHOLOGY AND GENOMIC [place] 4.6-7.0 g/dL MEDICINE 1 week 4.4-7.6 g/dL 7 months-1year5.1-7.3 g/dL 1-2 years5.6-7.5 g/dL >3 years6.0-8.0 g/dL 18-150 6.3-8.3 g/dL Albumin 3.6 3.5 - 5.0 g/dL [facility] DEPARTMENT OF PATHOLOGY AND GENOMIC MEDICINE A/G ratio 1.0 0.7 - 3.8 [facility] DEPARTMENT OF PATHOLOGY AND GENOMIC MEDICINE Alkaline phosphatase 103 35 - 104 U/L [facility] DEPARTMENT OF PATHOLOGY AND GENOMIC MEDICINE AST 21 10 - 35 U/L [facility] DEPARTMENT OF PATHOLOGY AND GENOMIC MEDICINE ALT 19 5 - 50 U/L [facility] DEPARTMENT OF PATHOLOGY AND GENOMIC MEDICINE Total bilirubin <0.2 0.0 - 1.2 mg/dL [facility] DEPARTMENT OF PATHOLOGY AND GENOMIC MEDICINE Specimen Plasma specimen Performing Organization Address City/State/Zipcode Phone Number [facility] DEPARTMENT OF PATHOLOGY AND [address] [place] [address] [facility] XR Chest 2 Vw (07/12/2017 4:24 PM) Narrative Performed At EXAMINATION:XR CHEST 2 VW RADIANT CLINICAL HISTORY:Chest Tube Removal COMPARISON:None IMPRESSION: 1.Lungs are clear and the heart size is normal. 2.The vessels are not congested. There are no pleural effusions. [facility]-[id number] Procedure Note Hm Interface, Radiology Results Incoming - 07/12/2017 4:29 PM CDT EXAMINATION: XR CHEST 2 VW CLINICAL HISTORY: Chest Tube Removal COMPARISON: None IMPRESSION: 1. Lungs are clear and the heart size is normal. 2. The vessels are not congested. There are no pleural effusions. [facility]-[id number] Performing Organization Address City/State/Zipcode Phone Number [facility] [address] [place] [address] after 06/20/2017 Insurance Payer Benefit Plan / Group Subscriber ID Type Phone Address MEDICARE MEDICARE PART A AND B xxxxxxxxxx Medicare [place], [place] Home: [address] [phone] [place] [phone]
[2018-06-21] MEDS ORDERED: GLUCAGON 1 MG/VIAL IM PRN (13:45)
[2018-06-21] MEDS ORDERED: D50W 25 GM/50 ML SYRINGE IV PRN (13:45)
[2018-06-21 13:53] LABS: Absolute Lymphocytes (CBC) 3.2 K/uL (0.7-4.9); Absolute Monocytes 0.9 K/uL (0.1-1.3); Absolute Neutrophil 9.9 K/uL (1.8-8.0); Basophils % 0.7 % (0-1.3); Eosinophils % 0.7 % (0-4.4); Hematocrit 39.8 % (36.0-45.0); Lymphocytes % 22.7 % (15.3-44.8); MCH 30.8 pg (27.0-35.0); MCV 92.1 fL (80-100); MPV 8.8 fL (7.6-11.3); Monocytes % 6.4 % (3.3-12.3); RBC Red Blood Cell Count 4.32 M/uL (3.86-4.86)
[2018-06-21] MEDS ORDERED: ENOXAPARIN 80 MG/0.8 ML SQ ONE (14:00)
[2018-06-21 14:03] VITALS: BMI 32.6
[2018-06-21 14:07] LABS: ALT/SGPT 15 U/L (12-78); AST/SGOT 18 U/L (15-37); Alkaline Phosphatase 108 U/L (45-117); BUN Blood Urea Nitrogen 17 mg/dL (7-18); Bicarbonate 31 mmol/L (21-32); Bilirubin Total 0.4 mg/dL (0.2-1.0); Glucose Level 189 mg/dL (74-106); Potassium 3.7 mmol/L (3.5-5.1); Protein, Total 6.6 g/dL (6.4-8.2); Sodium Level 142 mmol/L (136-145)
[2018-06-21] MEDS ORDERED: HYDRALAZINE HCL 20 MG/ML VIAL IV PRN (14:28)
[2018-06-21 14:57] LABS: Urine Appearance CLEAR; Urine Bilirubin NEGATIVE (NEG); Urine Blood NEGATIVE (NEG); Urine Color YELLOW; Urine Glucose 1+ (NEG); Urine Microscopic Reflex NO UMIC; Urine Protein NEGATIVE (NEG); Urine Specific Gravity 1.015 (1.005-1.030); Urine Urobilinogen 0.2 mg/dL (0.2-1.0)
--- NOTE | 2018-06-21 16:36 | RAD REPORT ---
EXAM DESCRIPTION: RAD - Chest Single View - 06/21/2018 3:07 pm CLINICAL HISTORY: Chest pain COMPARISON: September 2017 TECHNIQUE: AP portable chest image was obtained 1454 hours . FINDINGS: Lungs are clear. Heart and vasculature are normal. No measurable pleural effusion and no p neumothorax. No gross bony abnormality seen. No acute aortic findings suspected. IMPRESSION: No acute cardiopulmonary process. No significant change from comparison.
[2018-06-21] MEDS: INSULIN -REGULAR HUMAN 50 UNIT/0.5 ML ML SQ SCH ×2 (16:46→21:43)
[2018-06-21] MEDS: ACETAMINOPHEN 500 MG TAB PO PRN ×2 (17:20→23:47)
[2018-06-21] MEDS ORDERED: ATORVASTATIN 10 MG TAB PO SCH (21:00)
[2018-06-21] MEDS ORDERED: HOME MED 1 EA UNK (Simvastatin [Simvastatin] 20 MG) PO SCH (21:00)
[2018-06-21] MEDS ORDERED: HOME MED 1 EA UNK (Gabapentin [Gralise] 300 MG) PO SCH (21:00)
[2018-06-21] MEDS ORDERED: TRAMADOL HCL 50 MG TAB PO PRN (21:03)
[2018-06-21] MEDS: METOPROLOL XL 50 MG TAB PO SCH (21:43)
[2018-06-21] MEDS: INSULIN GLARGINE 100 UNITS/ML SQ SCH (21:44)
[2018-06-22 01:00] VITALS: O2SAT 97
[2018-06-22] MEDS: INSULIN -REGULAR HUMAN 50 UNIT/0.5 ML ML SQ SCH (07:30)
[2018-06-22] MEDS ORDERED: PANTOPRAZOLE 40MG TABLET PO SCH (07:30)
[2018-06-22] MEDS ORDERED: REGADENOSON 0.4 MG/5 ML SYR IV ONE (08:09)
[2018-06-22] MEDS ORDERED: LISINOPRIL 20 MG TAB PO SCH (09:00)
[2018-06-22] MEDS: INSULIN GLARGINE 100 UNITS/ML SQ SCH (09:00)
[2018-06-22] MEDS ORDERED: ASPIRIN EC 81 MG TAB PO SCH (09:00)
--- NOTE | 2018-06-22 09:56 | RAD REPORT ---
EXAM DESCRIPTION: NM - Rest Stress Cardiac Imaging - 06/22/2018 9:37 am CLINICAL HISTORY: CP<Reason For Exam>CP COMPARISON: ECHOCARDIOGRAM dated 01/15/2012<Comparisons> TECHNIQUE: The patient was administered 10.1 mCi of Tc 99m Sestamibi prior to resting SPECT imaging of the heart. The patient was then administered 31.3 mCi of Tc 99m Sestamibi following exercise or ph armacologic stress. Multiplanar SPECT images were reviewed. FINDINGS: The end diastolic volume is 81 ml, the end systolic volume is 24 ml, and the ejection frac tion is 70 %. Physiologic distribution of the radiopharmaceutical through the myocardium is noted. No stress induce d ischemic defect is seen to suggest stress induced ischemia. No fixed defect is seen to suggest hibe rnating myocardium or scarred myocardium. Minimal decrease anteroseptal wall at the apex is believed to be breast attenuation artifact. IMPRESSION: No stress induced ischemia or other suspicious findings. Ventricular volumes and ejection fraction are well within normal limits.
[2018-06-22] MEDS: METOPROLOL XL 50 MG TAB PO SCH (10:18)
[2018-06-22] MEDS: ACETAMINOPHEN 500 MG TAB PO PRN (10:30)
--- NOTE | 2018-06-22 13:03 | TREADPHA ---
DX: CHEST PAIN Date of Study: 06/22/18 Ht: 5 0 Wt: 167 lb 5 oz Consulting Physician: MONICA MEDICATIONS: TYLENOL, ASPIRIN, LIPITOR, GLUCAGEN, APRESOLINE, LANTUS, NOVOLIN, PRINIVIL, TOPROL, PROTONIX, ULTRAM HISTORY: 52 YEAR OLD FEMALE HERE FOR CHEST PAIN. HISTORY OF DIABETES, HYPERTENSION. HIGH CHOLESTEROL, MILD MYOCARDIAL INFARCTION. NO BLOCKAGE 2011 PHYSICIAL EXAMINATION: RESTING B.P.: 140/82 RESTING H.R.: 85 RESTING EKG: NORMAL PROTOCOL: LEXISCAN EXERCISE TIME: 3:30 B.P. AT PEAK STRESS: 148/88 IMPRESSION: LEXISCAN STRESS PERFORMED. CARDIOLITE INJECTED PER PROTOCOL. NO ARRHYTHMIAS NOTED. DENIES ANY CHEST PAIN. SEE NUCLEAR MEDICINE REPORT.
[2018-06-22 13:35] VITALS: BP 128/77; TEMP 98.2
--- NOTE | 2018-06-22 19:30 | HP ---
Date of Admission: 06/21/2018 Chief Complaint: Recurrent chest pain. History Of Present Illness: A 52-year-old female, started having recurrent chest pain the day before admission. 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 She was brought to [facility]. The patient denied any history of shortness of breath. No history of fever, chills, or rigors. The patient had EKG done. There was no evidence of acute injury. In view of recurrence of chest akil n, the patient is admitted for observation. The patient has multiple medical problems that includes history of type 2 diabetes, history of hypertension, history of hyperlipidemia. Past Surgical History: Positive for coronary angioplasty, gallbladder surgery, spleen and pancreatic surgery. Family History: Hypertension present. Personal History: Nonsmoker. Allergies: NONE. Medicines: Please refer to the chart. Review of Systems: There is no history of fever, chills, or rigors. Physical Examination: General: Revealed a 52-year-old female, comfortable at rest. HEENT: Otherwise negative. Neck: Supple. JVD negative. Chest: Clear. Heart: Regular. Abdomen: Nontender. Extremities: No edema. Laboratory Data: Troponin normal. White count [id number]. Chem profile otherwise negative other than e random blood sugar elevation. Assessment: 1.Recurrent chest pain. 2.Known coronary artery disease. 3.Hypertension. 4.Type 2 diabetes. 5.History of hyperlipidemia. Plan: As the troponin is negative, she is scheduled for a stress test. Further actions will depend on the stress test findings. ISIAH Voice ID: [id number]
== END 2018-06-22 13:27 | disposition home or self-care (01) ==
LOC: 2ND 13:06
PROVIDERS: ADMIT Internal Medicine; ATTEND Internal Medicine
DX: R07.9 Chest pain, unspecified (principal); E11.9 Type 2 diabetes mellitus without complications; I10 Essential (primary) hypertension; I25.10 Atherosclerotic heart disease of native coronary artery without angina pectoris; Z98.61 Coronary angioplasty status
CPT/HCPCS: 36415; 71045; 78452; 80053; 81003; 82962 ×5; 84484; 85025; 93017; A9500; G0378; G0379; J0360; J1650; J2785

== ENCOUNTER 2018-11-24 09:29 | Emergency (ER) | payer OTHER ==
--- OUTSIDE RECORDS SUMMARY | 2018-11-24 09:32 | XMS REPORT | Clinical Summary ---
:1965 Author Organization [facility] Address [address] [place] [address] Care Team Providers Name Role Phone Arslan Cote MD Primary Care Provider Allergies No Known Allergies Medications Medication Sig Dispensed Refills Start Date End Date Status insulin detemir Inject 40 Units 0 Active (LEVEMIR) 100 unit/mL under the skin 2 injection (two) times a day. insulin ASPART Inject 20 Units 0 Active (NovoLOG) 100 unit/mL under the skin 3 injection (three) times a day before meals. aspirin (ECOTRIN) 81 MG Take 81 mg by 0 Active enteric coated tablet mouth daily. estrogens, conjugated, Take 0.625 mg by 0 Active (PREMARIN) 0.625 MG mouth daily. tablet Patient takes daily metFORMIN (GLUCOPHAGE) Take 1,000 mg by 0 Active 1,000 mg tablet mouth daily with breakfast. gabapentin (NEURONTIN) Take 600 mg by 0 Active 300 mg capsule mouth nightly. acyclovir (ZOVIRAX) 800 Take 800 mg by 0 Active MG tablet mouth daily. diltiazem CD (CardIZEM Take 240 mg by 0 Active CD) 240 MG 24 hr mouth every capsule evening. pantoprazole (PROTONIX) Take 40 mg by 0 Active 40 MG EC tablet mouth daily. metoprolol tartrate Take 25 mg by 0 Active (LOPRESSOR) 25 mg mouth 2 (two) tablet times a day. lisinopril Take 5 mg by 0 Active (PRINIVIL,ZESTRIL) 5 mg mouth daily. tablet Active Problems Problem Noted Date Chest pain 07/12/2017 Palpitations 07/12/2017 Immunizations Name Dates Previously Given Next Due FLUCELVAX QUAD PF (0.5mL syringe) 07/13/2017 Pneumococcal Conjugate 13-Valent 07/13/2017 Social History Tobacco Use Types Packs/Day Years Used Date Never Smoker Alcohol Use Drinks/Week oz/Week Comments No Sex Assigned at Date Recorded Not on file Job Start Date Occupation Industry Not on file Not on file Not on file Travel History Travel Start Travel End No recent travel history available. Last Filed Vital Signs Not on file Plan of Treatment Health Maintenance Due Date Last Done Comments CERVICAL CANCER SCREENING 1985 BREAST CANCER SCREENING 2014 COLON CANCER SCREENING 2014 SHINGLES VACCINES (1 of 2) 2014 INFLUENZA VACCINE 05/26/2018 07/13/2017 Results Not on fileafter 11/23/2017 Insurance Payer Benefit Plan / Group Subscriber ID Type Phone Address MEDICARE MEDICARE PART A AND B xxxxxxxxxx Medicare [place], [place] Advance Directives Patient has advance care planning documents on file. For more information, please contact:[place] [address]
--- NOTE | 2018-11-24 10:03 | RAD REPORT ---
EXAM DESCRIPTION: CT - Ct Stroke Brain Wo Cont - 11/24/2018 9:54 am CLINICAL HISTORY: NUMBNESS Headache, drowsiness, CVA COMPARISON: Head Brain Wo Cont dated 10/24/2017; HEAD BRAIN W O CONTRAST dated 08/08/2015 TECHNIQUE: All CT scans are performed using dose optimization technique as appropriate and may inclu de automated exposure control or mA/KV adjustment according to patient size. FINDINGS: No intracranial hemorrhage, hydrocephalus or extra-axial fluid collection.Moderate frontal lobe atrophy.No areas of brain edema or evidence of midline shift. The paranasal sinuses and mastoids are clear. The calvarium is intact. IMPRESSION: No acute intracranial abnormality. The findings were discussed with Dr. Martin On 11/24/2018 at 9:57 a.m. by telephone.
--- NOTE | 2018-11-24 10:14 | RAD REPORT ---
EXAM DESCRIPTION: RAD - Chest Single View - 11/24/2018 10:05 am CLINICAL HISTORY: SOB Chest pain. COMPARISON: Chest Single View dated 06/21/2018; Chest Single View dated 10/24/2017; Chest Single View dated 04/27/2017; CHEST SINGLE VIEW dated 11/28/2014 FINDINGS: Portable technique limits examination quality. The lungs are grossly clear. The heart is normal in size. No displaced fractures. IMPRESSION: No acute intrathoracic process suspected.
[2018-11-24 10:40] LABS: Absolute Lymphocytes (CBC) 2.7 K/uL (0.7-4.9); Absolute Monocytes 0.6 K/uL (0.1-1.3); Absolute Neutrophil 5.3 K/uL (1.8-8.0); Basophils % 0.9 % (0-1.3); Eosinophils % 1.2 % (0-4.4); Hematocrit 43.1 % (36.0-45.0); Lymphocytes % 30.8 % (15.3-44.8); MPV 10.4 fL (7.6-11.3); Monocytes % 6.4 % (3.3-12.3); RBC Red Blood Cell Count 4.77 M/uL (3.86-4.86)
[2018-11-24 10:42] LABS: Protime INR 0.91
[2018-11-24 10:56] LABS: BUN Blood Urea Nitrogen 13 mg/dL (7-18); Bicarbonate 29 mmol/L (21-32); Glucose Level 337 mg/dL (74-106); Sodium Level 139 mmol/L (136-145); Troponin (Emerg Dept Use Only) < 0.02 ng/mL (0.0-0.045)
--- NOTE | 2018-11-24 12:28 | EKG ---
Test Date: 2018-11-24 Test Time: 10:07:20 Academic Hospitalist: LEXUS MEASUREMENT RESULTS: Intervals: Rate: 76 ND: 148 QRSD: 74 QT: 412 QTc: 463 [place]: P: 35 ND: 148 QRS: -11 T: 15 INTERPRETIVE STATEMENTS: Normal sinus rhythm Minimal voltage criteria for LVH, may be normal variant Borderline ECG Compared to ECG 04/07/2018 16:39:27 Left ventricular hypertrophy now present Electronically Signed On 11-24-18 12:27:26 DIAGNOSTIC TECHNICIAN by Ryder Benjamin
--- NOTE | 2018-11-24 12:30 | ER ---
Nurse's Notes [facility] Name: Rosa Crow Age: 53 yrs Sex: Female : 1965 Arrival Date: 11/24/2018 Time: 09:31 Bed 5 Private MD: Arslan Dorantes R Diagnosis: Disturbances of skin sensation Presentation: 11/24 09:35 Presenting complaint: Patient states: left arm/hand numbness and has seen PCP for this. sv But today the numbness increased to the left face/head. 09:35 Method Of Arrival: Wheelchair sv 09:35 Transition of care: patient was not received from another setting of care. Onset of sv symptoms was November 24, 2018 at 09:04. Care prior to arrival: None. 09:35 Acuity: KATARINA 2 sv 09:[address] Martin to come to bedside to exam pt, to determine if Code Stroke to be sv called, informed of symptoms and time of onset. Stated no Code Stroke to be called. 10:47 Risk Assessment: Do you want to hurt yourself or someone else? Patient reports no ph desire to harm self or others. Initial Sepsis Screen: Does the patient meet any 2 criteria? No. Patient's initial sepsis screen is negative. Does the patient have a suspected source of infection? No. Patient's initial sepsis screen is negative. Triage Assessment: 09:35 General: Appears in no apparent distress. uncomfortable, Behavior is calm, cooperative, sv appropriate for age. Pain: Denies pain. Neuro: Level of Consciousness is awake, alert, obeys commands, Oriented to person, place, time, situation, Certified Surgical First Assistant are weak on left arm. Moves all extremities. Full function Gait is steady, Speech is normal, Facial symmetry appears normal, Facial symmetry: tongue is midline, Reports numbness in left frontal area, left side of the back of head, left side of forehead, left temporal area, left occipital area, left eye, left jewish, left ear, left side of the nose, left zygomatic area, left cheek, left base of the skull, left mandible and left arm weakness in left arm since 2 weeks ago. Respiratory: Respiratory effort is even, unlabored, Respiratory pattern is regular, symmetrical. Derm: Skin is pink, warm \\T\\ dry. Historical: - Allergies: 10:51 No Known Allergies; ph - Home Meds: 10:49 acyclovir 800 mg Oral tab daily [Active]; aspirin 81 mg Oral chew 1 tab once daily ph [Active]; diltiazem HCl 240 mg Oral Tb24 [Active]; gabapentin 300 mg Oral cap 2 caps nightly [Active]; Levemir subcutaneous [Active]; lisinopril 5 mg Oral tab 1 tab once daily [Active]; metformin 1,000 mg Oral tr24 1 tab once daily [Active]; metoprolol tartrate 25 mg Oral tab 1 tab 2 times per day [Active]; Novolog Sub-Q 25 unit daily [Active]; Provera 10 mg Oral tab 1 tab once daily [Active]; simvastatin 20 mg Oral tab nightly [Active]; - PMHx: 09:47 Diabetes - IDDM; early alzheimers; Hypertension; Myocardial infarction; syndrome x; sv - PSHx: 09:47 Tubal ligation; Cholecystectomy; spleenectomy; Right knee surgery; Partial removal of sv pancreas; - Immunization history:: Adult Immunizations unknown. - Social history:: Patient/guardian denies using alcohol, street drugs, The patient lives with family, Smoking status: Patient/guardian denies using tobacco. - Family history:: not pertinent. - Ebola Screening: : No symptoms or risks identified at this time. Screenin:20 Patient has been NPO before screening. The patient is alert, able to follow commands. ph The patient does not exhibit slurred or garbled speech The patient is not exhibiting difficulty speaking. The patient does not exhibit difficulty understanding words. The patient is able to swallow own secretions with no drooling or need for suction. Patient tolerated one teaspoon of water. No drooling, immediate coughing, gurgling, or clearing of the throat was noted. The patient tolerated 90mL of water. No drooling, immediate coughing, gurgling, or clearing of the throat was noted. The patient passed the bedside swallow screening. Oral medications may be given as ordered. Contact Physician for further diet orders. 10:36 Abuse screen: Denies threats or abuse. Denies injuries from another. Nutritional ph screening: No deficits noted. Tuberculosis screening: No symptoms or risk factors identified. Fall Risk None identified. Assessment: 09:55 Reassessment: Pt taken to CT via wheelchair. ph 10:30 General: Appears in no apparent distress. comfortable, well groomed, Behavior is calm, ph cooperative, appropriate for age, Denies fever, feeling ill. Pain: Denies pain. Neuro: Level of Consciousness is awake, alert, obeys commands, Oriented to person, place, time, situation, Certified Surgical First Assistant are weak on left Moves all extremities. Full function Gait is steady, Speech is normal, Facial symmetry appears normal, Facial symmetry: tongue is midline, Pupils are PERRLA, Reports paresthesias in left side of the back of head, left side of forehead, left temporal area, left jewish and left arm Denies blurred vision dizziness, difficulty swallowing, headache. Cardiovascular: Denies chest pain, lightheadedness, palpitations, shortness of breath, Capillary refill < 3 seconds in bilateral fingers Patient's skin is warm and dry. Rhythm is sinus rhythm. Respiratory: Airway is patent Respiratory effort is even, unlabored, Respiratory pattern is regular, symmetrical. GI: Patient currently denies abdominal pain, nausea, vomiting. Derm: Skin is intact, is healthy with good turgor, Skin is pink, warm \\T\\ dry. Musculoskeletal: Circulation, motion, and sensation intact. Range of motion: intact in all extremities. 11:13 Reassessment: Patient appears in no apparent distress at this time. Patient and/or ph family updated on plan of care and expected duration. Pain level reassessed. Patient is alert, oriented x 3, equal unlabored respirations, skin warm/dry/pink. Pt resting quietly, denies numbness or tingling at this time, states, " It comes and goes." VSS, will continue to monitor Patient denies pain at this time. 12:49 Reassessment: Patient appears in no apparent distress at this time. Patient and/or ph family updated on plan of care and expected duration. Pain level reassessed. Patient is alert, oriented x 3, equal unlabored respirations, skin warm/dry/pink. Pt states that she will follow up w/ PCP for outpatient MRI, d/c home. Vital Signs: 09:40 BP 167 / 75; Pulse 79; Resp 16; Temp 97.4; Pulse Ox 96% ; Weight 72.57 kg; Height 5 ft. sv 0 in. (152.40 cm); Pain 0/10; 10:30 BP 116 / 60; Pulse 77; Resp 16; Pulse Ox 99% on R/A; ph 11:14 BP 127 / 62; Pulse 77; Resp 18; Pulse Ox 99% on R/A; ph 12:30 BP 157 / 77; Pulse 76; Resp 18; Temp 97.9; Pulse Ox 99% on R/A; ph 09:40 Body Mass Index 31.25 (72.57 kg, 152.40 cm) sv ED Course: 09:31 Patient arrived in ED. sb2 09:32 Arslan Dorantes MD is Private Physician. sb2 09:35 Arm band placed on Patient placed in an exam room, on a stretcher, on pulse oximetry. sv 09:39 Melva Martin MD is Attending Physician. ma2 09:46 Triage completed. sv 09:53 CT completed. Patient tolerated procedure well. Patient moved to CT via wheelchair. sj Patient moved to radiology Patient moved back from CT. 09:53 CT Stroke Brain w/o Contrast In Process Unspecified. EDMS 10:01 Tiffany Del Angel, RN is Primary Nurse. ph 10:02 X-ray completed. Patient tolerated procedure well. Patient moved back from radiology. jb2 10:06 Stroke CXR 1 View In Process Unspecified. EDMS 10:15 EKG done, by lawn technician. reviewed by Melva Martin MD. at1 10:25 Initial lab(s) drawn, by me, sent to lab. Missed attempt(s): 20 gauge in left ph antecubital area. Bleeding controlled, band aid applied, catheter tip intact. Patient did not have IV access during this emergency room visit. 10:37 Patient has correct armband on for positive identification. Placed in gown. Bed in low ph position. Call light in reach. Side rails up X 1. desk monitor on. Pulse ox on. NIBP on. Door closed. Noise minimized. Lights dimmed. Warm blanket given. Pillow given. Head of bed lowered. 12:50 No provider procedures requiring assistance completed. ph Administered Medications: No medications were administered Outcome: 12:29 Discharge ordered by . ma2 12:50 Discharged to home ambulatory, with family. ph 12:50 Condition: good 12:50 Discharge instructions given to patient, Instructed on discharge instructions, follow up and referral plans. Demonstrated understanding of instructions, follow-up care. 12:51 Patient left the ED. ph Signatures: Dispatcher [employer] Janet oFnseca RN RN Kwabena Cash Susan sj Gonzales, Amanda, corn husk baler EKG Tat1 Tiffany Del Angel RN RN ph Melva Martin MD MD ma2 Ana Rodriguez sb2 Corrections: (The following items were deleted from the chart) 12:51 12:49 Reassessment: Patient appears in no apparent distress at this time. Patient ph and/or family updated on plan of care and expected duration. Pain level reassessed. Patient is alert, oriented x 3, equal unlabored respirations, skin warm/dry/pink. Pt d/c home ph
--- NOTE | 2018-11-24 12:30 | EDPHYS ---
Physician Documentation [facility] Name: Rosa Crow Age: 53 yrs Sex: Female : 1965 Arrival Date: 11/24/2018 Time: 09:31 Bed 5 Private MD: Arslan Dorantes R ED Physician Melva Martin HPI: 11/24 10:08 This 53 yrs old Female presents to ER via Wheelchair with complaints of FACE ma2 TINGLING. 10:08 Onset: The symptoms/episode began/occurred gradually, 2 week(s) ago. Severity of ma2 symptoms: At their worst the symptoms were very mild in the emergency department the symptoms have resolved. The patient has experienced a previous episode. Historical: - Allergies: 10:51 No Known Allergies; ph - Home Meds: 10:49 acyclovir 800 mg Oral tab daily [Active]; aspirin 81 mg Oral chew 1 tab once daily ph [Active]; diltiazem HCl 240 mg Oral Tb24 [Active]; gabapentin 300 mg Oral cap 2 caps nightly [Active]; Levemir subcutaneous [Active]; lisinopril 5 mg Oral tab 1 tab once daily [Active]; metformin 1,000 mg Oral tr24 1 tab once daily [Active]; metoprolol tartrate 25 mg Oral tab 1 tab 2 times per day [Active]; Novolog Sub-Q 25 unit daily [Active]; Provera 10 mg Oral tab 1 tab once daily [Active]; simvastatin 20 mg Oral tab nightly [Active]; - PMHx: 09:47 Diabetes - IDDM; early alzheimers; Hypertension; Myocardial infarction; syndrome x; sv - PSHx: 09:47 Tubal ligation; Cholecystectomy; spleenectomy; Right knee surgery; Partial removal of sv pancreas; - Immunization history:: Adult Immunizations unknown. - Social history:: Patient/guardian denies using alcohol, street drugs, The patient lives with family, Smoking status: Patient/guardian denies using tobacco. - Family history:: not pertinent. - Ebola Screening: : No symptoms or risks identified at this time. ROS: 10:08 Constitutional: Negative for fever, chills, and weight loss, Cardiovascular: Negative ma2 for chest pain, palpitations, and edema, Respiratory: Negative for shortness of breath, cough, wheezing, and pleuritic chest pain, Abdomen/GI: Negative for abdominal pain, nausea, diarrhea, and constipation. 10:08 Neuro: Positive for tingling, Negative for altered mental status, dizziness, gait disturbance, headache, hearing loss, loss of consciousness, numbness, seizure activity, speech changes, syncope, near syncope, tinnitus, tremor, visual changes, weakness, acute changes. 10:08 All other systems are negative. Exam: 10:08 Constitutional: This is a well developed, well nourished patient who is awake, alert, ma2 and in no acute distress. Chest/axilla: Normal chest wall appearance and motion. Nontender with no deformity. No lesions are appreciated. Cardiovascular: Regular rate and rhythm with a normal S1 and S2. No gallops, murmurs, or rubs. Normal PMI, no JVD. No pulse deficits. Respiratory: Lungs have equal breath sounds bilaterally, clear to auscultation and percussion. No rales, rhonchi or wheezes noted. No increased work of breathing, no retractions or nasal flaring. Abdomen/GI: Soft, non-tender, with normal bowel sounds. No distension or tympany. No guarding or rebound. No evidence of tenderness throughout. MS/ Extremity: Pulses equal, no cyanosis. Neurovascular intact. Full, normal range of motion. Neuro: Awake and alert, GCS 15, oriented to person, place, time, and situation. Cranial nerves II-XII grossly intact. Motor strength 5/5 in all extremities. Sensory grossly intact. Cerebellar exam normal. Normal gait. Vital Signs: 09:40 BP 167 / 75; Pulse 79; Resp 16; Temp 97.4; Pulse Ox 96% ; Weight 72.57 kg; Height 5 ft. sv 0 in. (152.40 cm); Pain 0/10; 10:30 BP 116 / 60; Pulse 77; Resp 16; Pulse Ox 99% on R/A; ph 11:14 BP 127 / 62; Pulse 77; Resp 18; Pulse Ox 99% on R/A; ph 12:30 BP 157 / 77; Pulse 76; Resp 18; Temp 97.9; Pulse Ox 99% on R/A; ph 09:40 Body Mass Index 31.25 (72.57 kg, 152.40 cm) sv MDM: 09:39 Patient medically screened. ma2 10:08 Differential Diagnosis electrolyte abnormality vs stable angina had normal stress test ma2 last week . 12:27 Data reviewed: vital signs, nurses notes. Counseling: I had a detailed discussion with ma2 the patient and/or guardian regarding: the historical points, exam findings, and any diagnostic results supporting the discharge/admit diagnosis, the presence of at least one elevated blood pressure reading (>120/80) during this emergency department visit. Response to treatment: the patient's symptoms have resolved after treatment. ED course: stresstest was normal; . 11/24 09:41 Order name: Basic Metabolic Panel; Complete Time: 12:05 11/24 09:41 Order name: CBC with Diff; Complete Time: 12:11/24 09:41 Order name: Protime (+inr); Complete Time: 12:11/24 09:41 Order name: Ptt, Activated; Complete Time: 12:11/24 09:41 Order name: CT Stroke Brain w/o Contrast; Complete Time: 12:05 11/24 09:46 Order name: Troponin (emerg Dept Use Only); Complete Time: 12:11/24 09:41 Order name: Stroke CXR 1 View; Complete Time: 12:05 11/24 09:41 Order name: EKG; Complete Time: 09:46 11/24 09:41 Order name: Accucheck; Complete Time: 11:39 11/24 09:41 Order name: Cardiac monitoring; Complete Time: 10:26 11/24 09:41 Order name: EKG - Nurse/Tech; Complete Time: 10:26 11/24 09:41 Order name: IV Saline Lock; Complete Time: 10:11/24 09:41 Order name: Labs collected and sent; Complete Time: 10:26 11/24 09:41 Order name: NPO; Complete Time: 10:26 11/24 09:41 Order name: O2 Per Protocol; Complete Time: 10:11/24 09:41 Order name: O2 Sat Monitoring; Complete Time: 10:11/24 09:41 Order name: Stroke Swallow Screen; Complete Time: 10:26 Administered Medications: No medications were administered Disposition: 11/24/18 12:29 Discharged to Home. Impression: Disturbances of skin sensation. - Condition is Stable. - Medication Reconciliation Form, Thank You Letter, Antibiotic Education, Prescription Opioid Use form. - Follow up: Private Physician; When: Tomorrow; Reason: Continuance of care. Signatures: Dispatcher [employer] Janet Fonseca RN RN Tiffany Del Angel RN RN Melva Martin MD MD ma2 Corrections: (The following items were deleted from the chart) 12:51 12:29 11/24/2018 12:29 Discharged to Home. Impression: Disturbances of skin sensation. ph Condition is Stable. Forms are Medication Reconciliation Form, Thank You Letter, Antibiotic Education, Prescription Opioid Use. Follow up: Private Physician; When: Tomorrow; Reason: Continuance of care. ma2
[2018-11-24 13:04] VITALS: O2SAT 99
[2018-11-24 13:07] VITALS: BP 157/77; TEMP 97.9
== END 2018-11-24 12:51 | disposition home or self-care (01) ==
LOC: ER 09:29
DX: R20.2 Paresthesia of skin (principal); E11.9 Type 2 diabetes mellitus without complications; G30.0 Alzheimer's disease with early onset; F02.80 Dementia in other diseases classified elsewhere, unspecified severity, without behavioral disturbance, psychotic disturbance, mood disturbance, and anxiety; I10 Essential (primary) hypertension; I25.2 Old myocardial infarction; Z79.82 Long term (current) use of aspirin; Z79.4 Long term (current) use of insulin
CPT/HCPCS: 36415; 70450; 71045; 80048; 84484; 85025; 85610; 85730; 93005; 99285

== ENCOUNTER 2019-08-09 17:32 | Emergency (ER) | payer OTHER ==
[2019-08-09] MEDS ORDERED: KETOROLAC 30 MG/ML INJ ONE (18:45)
[2019-08-09 18:47] LABS: Urine Appearance CLEAR; Urine Bilirubin NEGATIVE (NEG); Urine Blood NEGATIVE (NEG); Urine Color YELLOW; Urine Glucose NEGATIVE (NEG); Urine Protein NEGATIVE (NEG); Urine Urobilinogen 0.2 mg/dL (0.2-1.0); Urine pH 6.5 (5.0-7.0)
[2019-08-09 19:09] LABS: Urine Bacteria NONE SEEN /HPF (<20); Urine Culture Reflex Order NOT NEEDED; Urine RBC NONE SEEN /HPF (NONE SEEN)
--- NOTE | 2019-08-09 19:15 | ER ---
Nurse's Notes [facility] Name: Rosa Crow Age: 54 yrs Sex: Female : 1965 Arrival Date: 08/09/2019 Time: 17:34 Bed 13 Private MD: Arslan Dorantes R Diagnosis: Low back pain Presentation: 08/09 17:43 Presenting complaint: Patient states: i am having pain on my LEFT side, mostly when i tw2 lay down, it has been bothering me all week, pressure on the left side. Transition of care: patient was not received from another setting of care. Onset of symptoms was August 09, 2019. Risk Assessment: Do you want to hurt yourself or someone else? Patient reports no desire to harm self or others. Initial Sepsis Screen: Does the patient meet any 2 criteria? No. Patient's initial sepsis screen is negative. Does the patient have a suspected source of infection? No. Patient's initial sepsis screen is negative. Care prior to arrival: None. 17:43 Method Of Arrival: Ambulatory tw2 17:43 Acuity: KATARINA 3 tw2 Triage Assessment: 17:47 General: Appears in no apparent distress. Behavior is calm, cooperative, appropriate tw2 for age. Pain: Complains of pain in left upper quadrant and left lower quadrant Pain radiates to back. Musculoskeletal: Range of motion: intact in all extremities. 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/A - Hysterectomy tw2 Historical: - Allergies: 17:47 No Known Allergies; tw2 - Home Meds: 17:47 Novolog Sub-Q 25 unit daily [Active]; Levemir 40 units subcutaneous [Active]; aspirin tw2 81 mg Oral chew 1 tab once daily [Active]; gabapentin 300 mg Oral cap 2 caps nightly [Active]; simvastatin 20 mg Oral tab nightly [Active]; pantoprazole 40 mg oral TbEC 1 tab once daily [Active]; metoprolol tartrate 50 mg oral tab [Active]; lisinopril 20 mg oral tab 1 tab once daily [Active]; Premarin 1.25 mg Oral tab 1 tab once daily [Active]; Creon 36,000-114,000- 180,000 unit oral cpDR 1 cap 3 times per day [Active]; - PMHx: 17:47 syndrome x; Myocardial infarction; early alzheimers; Diabetes - IDDM; Hypertension; tw2 - PSHx: 17:47 Tubal ligation; Cholecystectomy; spleenectomy; Right knee surgery; Partial removal of tw2 pancreas; - Immunization history:: Adult Immunizations. - Social history:: Smoking status: . - Ebola Screening: : Patient denies travel to an Ebola-affected area in the 21 days before illness onset. Screenin:16 Abuse screen: Denies threats or abuse. Denies injuries from another. Nutritional jl7 screening: No deficits noted. Tuberculosis screening: No symptoms or risk factors identified. 19:00 Fall Risk None identified. jb4 Assessment: 18:16 General: Appears in no apparent distress. uncomfortable, Behavior is calm, cooperative, jl7 appropriate for age. Pain: Complains of pain in left mid back Pain radiates to left upper quadrant Pain currently is 8 out of 10 on a pain scale. Quality of pain is described as pressure, sharp, Pain began 2-3 days ago. Is intermittent. Neuro: Level of Consciousness is awake, alert, obeys commands, Oriented to person, place, time, situation. Cardiovascular: Patient's skin is warm and dry. Respiratory: Airway is patent Respiratory effort is even, unlabored, Respiratory pattern is regular, symmetrical. GI: Abdomen is round non-distended, Abd is soft and non tender X 4 quads. : Reports "Weak stream". Derm: Skin is pink, warm \\T\\ dry. 19:03 Reassessment: Patient appears in no apparent distress at this time. Patient and/or jb4 family updated on plan of care and expected duration. Pain level reassessed. Patient is alert, oriented x 3, equal unlabored respirations, skin warm/dry/pink. 19:40 Reassessment: Patient appears in no apparent distress at this time. Patient and/or jb4 family updated on plan of care and expected duration. Pain level reassessed. Patient is alert, oriented x 3, equal unlabored respirations, skin warm/dry/pink. Vital Signs: 17:47 BP 176 / 74; Pulse 82; Resp 17; Temp 97.4(TE); Pulse Ox 98% on R/A; Weight 77.11 kg tw2 (R); Pain 8/10; 19:16 BP 175 / 93; Pulse 76; Resp 16; Pulse Ox 98% on R/A; jb4 ED Course: 17:34 Patient arrived in ED. mr 17:34 Arslan Dorantes MD is Private Physician. mr 17:44 Triage completed. tw2 17:47 Arm band placed on. tw2 17:55 Bob Velazquez MD is Attending Physician. tw4 18:06 German Black, RN is Primary Nurse. jl7 18:16 Patient has correct armband on for positive identification. Bed in low position. Call jl7 light in reach. Side rails up X 1. 18:43 Urine Dipstick--Ancillary (enter results) Sent. kj1 19:14 Arslan Dorantes MD is Referral Physician. tw4 19:45 No provider procedures requiring assistance completed. Patient did not have IV access jb4 during this emergency room visit. 19:47 Cassius Hankins, RN is Primary Nurse. jb4 Administered Medications: 19:04 Drug: TORadol 60 mg Route: IM; Site: left gluteus; jb4 19:26 Follow up: Response: No adverse reaction; Pain is decreased jb4 Outcome: 19:14 Discharge ordered by . tw4 19:45 Discharged to home ambulatory, with family. jb4 19:45 Condition: stable 19:45 Discharge instructions given to patient, family, Instructed on discharge instructions, follow up and referral plans. medication usage, Demonstrated understanding of instructions, follow-up care, medications, Prescriptions given X 2. 19:47 Patient left the ED. jb4 Signatures: Rosa CaoKathe, RN RN tw2 Cassius Hankins, MIKE MCKEON jb4 German Black, MIKE RN jl7 Bob Velazquez MD MD tw4 Blessing Carmona kj1 Corrections: (The following items were deleted from the chart) 18:44 18:43 UA MICROSCOPIC+U.LAB.BRZ drawn and sent. kj1 EDMS 18:44 18:44 URINALYSIS+U.LAB.BRZ drawn and sent. kj1 EDMS
--- NOTE | 2019-08-09 19:15 | EDPHYS ---
Physician Documentation [facility] Name: Rosa Crow Age: 54 yrs Sex: Female : 1965 Arrival Date: 08/09/2019 Time: 17:34 Bed 13 Private MD: Arslan Dorantes R ED Physician Bob Velazquez HPI: 08/09 19:06 This 54 yrs old Female presents to ER via Ambulatory with complaints of Back tw4 Pain. 19:06 The patient presents with pain that is acute. The patient presents with pain that is tw4 acute, with no known mechanism of injury. The symptoms are located in the low back. Onset: The symptoms/episode began/occurred today. The pain does not radiate. The problem was sustained from unknown cause. The patient has not experienced similar symptoms in the past. 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 N/A - Hysterectomy tw2 Historical: - Allergies: 17:47 No Known Allergies; tw2 - Home Meds: 17:47 Novolog Sub-Q 25 unit daily [Active]; Levemir 40 units subcutaneous [Active]; aspirin tw2 81 mg Oral chew 1 tab once daily [Active]; gabapentin 300 mg Oral cap 2 caps nightly [Active]; simvastatin 20 mg Oral tab nightly [Active]; pantoprazole 40 mg oral TbEC 1 tab once daily [Active]; metoprolol tartrate 50 mg oral tab [Active]; lisinopril 20 mg oral tab 1 tab once daily [Active]; Premarin 1.25 mg Oral tab 1 tab once daily [Active]; Creon 36,000-114,000- 180,000 unit oral cpDR 1 cap 3 times per day [Active]; - PMHx: 17:47 syndrome x; Myocardial infarction; early alzheimers; Diabetes - IDDM; Hypertension; tw2 - PSHx: 17:47 Tubal ligation; Cholecystectomy; spleenectomy; Right knee surgery; Partial removal of tw2 pancreas; - Immunization history:: Adult Immunizations. - Social history:: Smoking status: . - Ebola Screening: : Patient denies travel to an Ebola-affected area in the 21 days before illness onset. ROS: 19:06 Constitutional: Negative for fever, chills, and weight loss, Cardiovascular: Negative tw4 for chest pain, palpitations, and edema, Respiratory: Negative for shortness of breath, cough, wheezing, and pleuritic chest pain, Abdomen/GI: Negative for abdominal pain, nausea, vomiting, diarrhea, and constipation, MS/Extremity: Negative for injury and deformity, Skin: Negative for injury, rash, and discoloration, Neuro: Negative for headache, weakness, numbness, tingling, and seizure. 19:06 Back: Positive for pain at rest, pain with movement. Exam: 19:06 Constitutional: This is a well developed, well nourished patient who is awake, alert, tw4 and in no acute distress. Head/Face: Normocephalic, atraumatic. Chest/axilla: Normal chest wall appearance and motion. Nontender with no deformity. No lesions are appreciated. Cardiovascular: Regular rate and rhythm with a normal S1 and S2. No gallops, murmurs, or rubs. Normal PMI, no JVD. No pulse deficits. Respiratory: Lungs have equal breath sounds bilaterally, clear to auscultation and percussion. No rales, rhonchi or wheezes noted. No increased work of breathing, no retractions or nasal flaring. Abdomen/GI: Soft, non-tender, with normal bowel sounds. No distension or tympany. No guarding or rebound. No evidence of tenderness throughout. MS/ Extremity: Pulses equal, no cyanosis. Neurovascular intact. Full, normal range of motion. Neuro: Awake and alert, GCS 15, oriented to person, place, time, and situation. Cranial nerves II-XII grossly intact. Motor strength 5/5 in all extremities. Sensory grossly intact. Cerebellar exam normal. Normal gait. 19:06 Back: pain, is absent, ROM is normal, normal spinal alignment noted. Vital Signs: 17:47 BP 176 / 74; Pulse 82; Resp 17; Temp 97.4(TE); Pulse Ox 98% on R/A; Weight 77.11 kg tw2 (R); Pain 8/10; 19:16 BP 175 / 93; Pulse 76; Resp 16; Pulse Ox 98% on R/A; jb4 MDM: 17:55 Patient medically screened. tw4 19:13 Data reviewed: vital signs, nurses notes. Data interpreted: Pulse oximetry: tw4 Interpretation: normal. Counseling: I had a detailed discussion with the patient and/or guardian regarding: the historical points, exam findings, and any diagnostic results supporting the discharge/admit diagnosis, lab results. Medication response: Toradol markedly relieved the patient's pain. Response to treatment: the patient's symptoms have markedly improved after treatment, and as a result, I will discharge patient. 08/09 18:32 Order name: Urine Dipstick--Ancillary (enter results) bd 08/09 18:44 Order name: Urinalysis W/Microscopic EDMS Administered Medications: 19:04 Drug: TORadol 60 mg Route: IM; Site: left gluteus; jb4 19:26 Follow up: Response: No adverse reaction; Pain is decreased jb4 Disposition: 08/09/19 19:14 Discharged to Home. Impression: Low back pain. - Condition is Stable. - Discharge Instructions: Back Pain, Adult. - Prescriptions for Cyclobenzaprine 10 mg Oral Tablet - take 1 tablet by ORAL route every 8 hours As needed; 30 tablet. Tramadol 50 mg Oral Tablet - take 1 tablet by ORAL route every 8 hours as needed; 12 tablet. - Medication Reconciliation Form, Thank You Letter, Antibiotic Education, Prescription Opioid Use form. - Follow up: Arslan Dorantes MD; When: Upon discharge from the Emergency Department; Reason: If symptoms return, Recheck today's complaints, Continuance of care. - Problem is new. - Symptoms have improved. Signatures: Dispatcher [employer] EDOR Kathe Connolly, RN RN tw2 Cassius Hankins RN RN jb4 Bob Velazquez MD MD tw4 Corrections: (The following items were deleted from the chart) 18:44 18:12 URINALYSIS+U.LAB.BRZ ordered. EDOR EDMS 18:44 18:12 UA MICROSCOPIC+U.LAB.BRZ ordered. EDOR EDMS 19:47 19:14 08/09/2019 19:14 Discharged to Home. Impression: Low back pain. Condition is jb4 Stable. Forms are Medication Reconciliation Form, Thank You Letter, Antibiotic Education, Prescription Opioid Use. Follow up: Arslan Dorantes; When: Upon discharge from the Emergency Department; Reason: If symptoms return, Recheck today's complaints, Continuance of care. Problem is new. Symptoms have improved. tw4
[2019-08-09 19:41] LABS: Urine Blood NEGATIVE (NEG); Urine Glucose NEGATIVE (NEG); Urine Protein NEGATIVE (NEG); Urine pH 6.5 (5.0-7.0)
[2019-08-09 20:46] VITALS: BP 176/74; TEMP 97.4; O2SAT 98
== END 2019-08-09 19:47 | disposition home or self-care (01) ==
LOC: ER 17:32
DX: M54.5 Low back pain (principal); I10 Essential (primary) hypertension; E11.9 Type 2 diabetes mellitus without complications; I25.2 Old myocardial infarction; G30.9 Alzheimer's disease, unspecified; Z79.4 Long term (current) use of insulin; Z79.82 Long term (current) use of aspirin
CPT/HCPCS: 81001; 81003; 96372; 99283

== ENCOUNTER 2021-10-16 16:44 | Emergency (ER) | payer BC, OTHER ==
--- OUTSIDE RECORDS SUMMARY | 2021-10-16 16:54 | XMS REPORT | Continuity of Care Document ---
:1965 Author Organization [facility] t Address [address] [place] [address] Care Team Providers Name Role Phone Phyllis Ayon Primary Care Physician Taiwo RUBI Attending Clinician IVONNE Attending Clinician Unavailable Lab, Fam Pob I Attending Clinician Unavailable Payers Payer Name Policy Type Policy Number Effective Date Expiration Date S ource Problems Condition Condition Condition Status Onset Resolution Last Treating Co mments Source Name Details Category Date Date Treatment Clinician Date Abdominal Abdominal Disease Active Uni vers pain pain 1-04 ity of 00:00: [place] [address] Medical Branch Obesity Obesity Disease Active Univers (BMI (BMI 7-09 ity of 30-39.9) 30-39.9) 00:00: Medical Branch Type 1 Type 1 Disease Active Univers diabetes diabetes 6-10 ity of mellitus mellitus 00:00: [place] [facility] Neuropathy Neuropathy Disease Active U nivers 6-10 ity of 00:00: [place] [facility] Essential Essential Disease Active Uni vers hypertensi hypertensi 6-10 it y of on on 00:00: Medical Branch UTI (lower UTI (lower Disease Active U nivers urinary urinary 3-04 ity of tract tract 00:00: [place] infection) infection) 00 Mt dical Branch 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 Pancreas divisumIC D10 Diagnosis Term Head Sulfide Operator Utility Essential Essential Disease Active Overview: Univers hypertensi hypertensi 3-11 Formattin ity of on on 00:00: g of this [place] 00 note Medical might be Branch different from the original. ICD10 Diagnosis Term Head Sulfide Operator Utility Follow-up Follow-up Disease Active Overview: Univers examinatio examinatio 2-19 Formattin ity of n n 00:00: g of this [place] 00 note Medical might be Branch different from the original. ICD10 Diagnosis Term Head Sulfide Operator Utility Allergies, Adverse Reactions, Alerts Allergy Allergy Status Severity Reaction(s) Onset Inactive Treating Comm ents Source Name Type Date Date Clinician Amoxicil Propensi Active Hives Red, Univer s caitie-Pot ty to 2-05 swelling ity of Clavulan adverse 00:00: in face [place] ate reaction Medical s Branch Social History Social Habit Start Date Stop Date Quantity Comments Source Exposure to Not sure [facility] SARS-CoV-2 [place] Medical (event) Branch Alcohol intake 2021-09-10 2021-09-10 Current University of 00:00:00 00:00:00 non-drinker of [facility] alcohol Branch (finding) Sex Ass[birth year] At [birth year] Universit y of 00:00:00 00:00:00 [facility] Branch Smoking Status Start Date Stop Date Source Never smoker [facility] Medical Branch Medications Ordered Filled Start Stop Current Ordering Indication Dosage Frequency Signature Comments Components Source Medication Medication Date Date Medication? Clinician (SIG) Name Name ESTROGENS, Yes .625mg Take 0.625 Univers CONJUGATED 8-25 mg by ity of (PREMARIN 09:32: mouth [place] ORAL) 30 daily. Medical Branch ACYCLOVIR, Yes 800mg 800 mg. Uni vers BULK, MISC 8-25 ity of 09:32: [place] 30 Medical Branch aspirin 81 Yes 81mg Take 81 mg U nivers mg tablet 8-25 by mouth ity of 09:30: daily. [place] 14 [facility] Branch simvastatin Yes 20mg Take 20 mg Univers (ZOCOR) 20 8-25 by mouth ity o f mg tablet 09:29: at [place] [address] bedtime. Medical Branch pantoprazol Yes 40mg Take 40 mg Univers e 40 mg EC 8-25 by mouth ity o f tablet 09:29: daily. [address] Branch lisinopril Yes 5mg Take 5 mg Un saima 5 mg tablet 8-25 by mouth ity of 09:29: daily. [address] Branch insulin Yes [id number] 20U inject 20 U nivers aspart 8-25 Units ity of U-100 00:00: under the [place] (NOVOLOG 00 skin 3 Medical FLEXPEN (three) Branch U-100 times INSULIN) daily 100 unit/mL before (3 mL) meals. injection insulin Yes [id number] 80U inject 80 U nivers degludec 8-25 Units ity of (TRESIBA 00:00: under the [facility] s FLEXTOUCH 00 skin every Medi danielle U-200) 200 morning. Branc h unit/mL (3 mL) InPn metformin Yes [id number] 750mg Take 1 U nivers ER 750 mg 8-25 tablet by ity o f 24 hr 00:00: mouth 2 [place] tablet 00 (two) Medical times Branch daily with meals. Insulin Yes [id number] 4 times a U nivers [place], 8-25 day , ity of Disposable, 00:00: Dx:E11.49 [place] (BD INSULIN Medical PEN NEEDLE Branch UF) 31 gauge x 5/16" Ndle cetirizine Yes 10mg Take 10 mg U nivers 10 mg 8-13 by mouth ity of tablet 00:00: daily. Medical Branch montelukast Yes 10mg Take 10 mg Univers 10 mg 8-13 by mouth ity of tablet 00:00: daily. [place] Medical Branch carvediloL Yes 25mg Take 25 mg U nivers 25 mg 7-13 by mouth 2 ity of tablet 00:00: (two) [place] 00 times Medical daily with Branch meals. Cholecalcif Yes 1 CAPSULE U nivers imtiaz, 7-09 ONCE A ity of Vitamin D3, 00:00: WEEK X 12 [place] 1,250 mcg 00 WEEKS Medical (50,000 ORALLY 30 Branch unit) DAY(S) capsule ondansetron 2018-10 Yes [id number] 4mg Take 1 Univers (ZOFRAN 0-18 tablet by ity of ODT) 4 mg 00:00: mouth [place] disintegrat 00 every 8 Medic al ing tablet (eight) Branch hours as needed for Nausea and Vomiting (N/V). traMADol 2018-10 Yes [id number] 50mg Take 1 Uni vers (ULTRAM) 50 0-18 tablet by ity of mg tablet 00:00: mouth [place] 00 every 8 Medical (eight) Branch hours as needed for Pain (scale 4-6). proMETHazin Yes 25mg Take 1 Univ ers e 7-31 tablet by ity of (PHENERGAN) 00:00: mouth [place] 25 mg 00 every 6 Medical tablet (six) Branch hours as needed for Nausea and Vomiting (N/V). gabapentin Yes TAKE 2 Unive rs (NEURONTIN) 4-04 CAPSULES ity of 300 mg 00:00: BY MOUTH [place] capsule 00 ONCE A DAY Medica l Branch METOPROLOL Yes 1 Tab Oral U nivers SUCCINATE 6-15 DAILY ity of 50 MG ORAL 00:00: [place] TB24 00 Medical Branch Immunizations Ordered Filled Immunization Date Status Comments [facility] e Immunization Name Name SARS-COV-2 COVID-19 2020-12-29 Completed Unive rsity of MODERNA VACCINE 00:00:00 [place] Med ical Branch SARS-COV-2 COVID-19 2020-12-01 Completed Unive rsity of MODERNA VACCINE 00:00:00 [facility] ica Branch Pneumococcal 2017-06-26 Completed [place] o f Polysaccharide, 00:00:00 [facility] PPSV23 (PNEUMOVAX) Branch Influenza Virus 2017-06-26 Completed [facility] y of Vaccine Quad ID 00:00:00 [facility] ica 18-64 YRS Branch Vital Signs Vital Name Observation Time Observation Value Comments Source Systolic blood 2021-09-10 17:30:00 136 mm[Hg] Univer sity of pressure [facility] Diastolic blood 2021-09-10 17:30:00 82 mm[Hg] Unive rsity of pressure [facility] Heart rate 2021-09-10 17:30:00 86 /min [facility] Respiratory rate 2021-09-10 17:30:00 16 /min [facility] Body height 2021-09-10 17:30:00 152.4 cm [facility] Body weight 2021-09-10 17:30:00 80.377 kg [facility] BMI 2021-09-10 17:30:00 34.61 kg/m2 [facility] Oxygen saturation in 2021-09-10 17:30:00 96 /min [facility] Arterial blood by [facility] Pulse oximetry Branch Procedures Procedure Date / Time Performed Performing Clinician Sour e POCT HEMOGLOBIN A1C 2021-09-10 17:47:00 Vega Maravilla [facility] [place], operated by [facility] Encounters Start End Encounter Admission Attending Care Care Encounter Source Date/Time Date/Time Type Type Clinicians Facility Department ID 2021-09-10 2021-09-10 Office EMILE Maravilla [id number] [place] [address] 11:24:11 12:03:42 [facility] [id number] it y of [place] [id number] [place] SINDY?BLEA [id number] [place] CELESTE [address] [facility] 2020 2020 Outpatient [facility] [id number] 00:00:00 00:00:00 [facility] [address] 2020-06-06 2020-06-06 Outpatient [facility] [id number] 00:00:00 00:00:00 [facility] [address] 2020-05-13 2020-05-13 Laboratory Lab, [facility] [id number] 13:33:49 13:53:49 Only Fam P[facility] Health [id number] [place] [id number] Pro[facility] [id number] [address]al [address] 2020-04-10 2020-04-10 Outpatient IVONNE, [facility] [id number] 00:00:00 00:00:00 MA[facility]SA [address] 2020-02-06 2020-02-06 Outpatient IVONNE, [facility] [id number] 00:00:00 00:00:00 MA[facility]SA [address] 2019-12-22 2019-12-22 Outpatient IVONNE, [facility] [id number] 00:00:00 00:00:00 [facility] [address] 2019-12-22 2019-12-22 Outpatient IVONNE, [facility] [id number] 00:00:00 00:00:00 MA[facility]SA [address] 2019-12-22 2019-12-22 Outpatient IVONNE, [facility] [id number] 00:00:00 00:00:00 MA[facility]SA [address] Results Test Description Test Time Test Comments Results Result Comments Source POCT HEMOGLOBIN A1C TEST 2021-09-10 17:47:00 Test Item Value Reference Range Interpretation Comme nts POCT HBA1C (test code = 4548-4) 9.1 % 4-6 A Lab Interpretation (test code = 99028-2) Abnormal [facility]
--- NOTE | 2021-10-16 18:11 | RAD REPORT ---
EXAM DESCRIPTION: RAD - Chest Single View - 10/16/2021 6:04 pm CLINICAL HISTORY: fatigue COMPARISON: Chest Single View dated 11/24/2018; Chest Single View dated 06/21/2018; Chest Single View dated 10/24/2017; Chest Single View dated 04/27/2017 FINDINGS: Lines: None. Lungs: No evidence of edema or pneumonia. Pleural: No significant pleural effusions or pneumothorax. Cardiac: The heart size is within normal limits. Bones: No acute fractures. Other: IMPRESSION: No acute cardiopulmonary disease.
[2021-10-16 18:28] LABS: Urine Blood Negative (Negative); Urine Glucose Trace (Negative); Urine Protein Negative (Negative); Urine pH 6.5 (5.0-7.0)
[2021-10-16 18:49] LABS: Absolute Lymphocytes (CBC) 5.1 K/uL (0.7-4.9); Basophils % 0.9 % (0-1.3); Hematocrit 40.7 % (36.0-45.0); MPV 9.3 fL (7.6-11.3); Protime INR 0.97; RBC Red Blood Cell Count 4.63 M/uL (3.86-4.86)
[2021-10-16] MEDS ORDERED: ONDANSETRON 4 MG/2 ML VIAL ONE ×2 (19:15→21:53)
[2021-10-16] MEDS ORDERED: HYDRALAZINE HCL 20 MG/ML VIAL ONE (19:15)
[2021-10-16] MEDS ORDERED: MORPHINE 4 MG/ML SYR ONE ×2 (19:27→21:53)
[2021-10-16] MEDS ORDERED: NA CHLORIDE 0.9% 500 ML ONE (19:34)
--- NOTE | 2021-10-16 21:17 | RAD REPORT ---
EXAM DESCRIPTION: CTAbdomen Pelvis W Contrast - 10/16/2021 8:59 pm CLINICAL HISTORY: back pain, weakness COMPARISON: Abdomen Pelvis W Contrast dated 01/21/2019; CT ABD PELVIS W CONTRAST dated 10/27/2015; CT ABD PELVIS W CONTRAST dated 05/10/2015; CT ABD PELVIS W CONTRAST dated 08/03/2014; Abdomen WWo Cont da tenzin 11/13/2020 TECHNIQUE: CT of the abdomen and pelvis was performed. All CT scans are performed using dose optimization technique as appropriate and may include automated exposure control or mA/KV adjustment according to patient size. FINDINGS: Lower chest: No acute abnormality. Liver: Increasing geographic areas of volume loss and hypoenhancement predominantly in segment 4 of t he liver but also peripherally within segments 7, 8, 2, and medially within segment 5. Biliary: Cholecystectomy. Stomach: No significant focal abnormality. Duodenum: No significant focal abnormality. Pancreas: Partial pancreatectomy. Spleen: Splenectomy. Adrenal: No suspicious lesions. Kidney/ureter: No hydronephrosis. No renal calculi. Retroperitoneum: No retroperitoneal adenopathy. Vascular: No aneurysm. Bowel: No significant focal abnormality. Normal appendix. Peritoneum: No ascites or free air. Fat containing ventral hernias. Bladder: Grossly unremarkable. Reproductive: Hysterectomy Bones: No acute fracture. Other: n/a IMPRESSION: No acute intra-abdominal or pelvic finding. Worsening geographic areas of hypoenhancement in both hepatic lobes that is of uncertain etiology. Co nfluent fibrosis, areas of geographic fatty infiltration, and/or multifocal underlying neoplasm are p ossibilities. Recommend gastroenterology consultation and/or referral.
[2021-10-16 21:37] LABS: ALT/SGPT 27 U/L (12-78); AST/SGOT 25 U/L (15-37); Albumin 3.3 g/dL (3.4-5.0); Alkaline Phosphatase 147 U/L (45-117); BUN Blood Urea Nitrogen 13 mg/dL (7-18); Bicarbonate 29 mmol/L (21-32); Bilirubin Direct 0.1 mg/dL (0-0.2); Bilirubin Total 0.3 mg/dL (0.2-1.0); Glucose Level 206 mg/dL (74-106); Magnesium 2.2 mg/dL (1.8-2.4); NT PRO-BNP 208 pg/mL (<125); Potassium 3.4 mmol/L (3.5-5.1); Protein, Total 7.2 g/dL (6.4-8.2); Sodium Level 141 mmol/L (136-145); Troponin (Emerg Dept Use Only) < 0.02 ng/mL (0.0-0.045)
[2021-10-16] MEDS ORDERED: PROMETHAZINE INJ 25 MG/ML AMP ONE (22:40)
--- NOTE | 2021-10-16 23:25 | ER ---
Nurse's Notes [facility] Name: Rosa Crow Age: 56 yrs Sex: Female : 1965 Arrival Date: 10/16/2021 Time: 17:08 Bed 4 Private MD: Diagnosis: Low back pain;Vomiting Presentation: 10/16 17:15 Chief complaint: Patient states: Thursday i started having lower back pain. by Thursday tw2 it was feeling worse and i thought it was my bad back. i have been hurting. i have been nauseous. its mostly the right side. Coronavirus screen: At this time, the client does not indicate any symptoms associated with coronavirus-19. Ebola Screen: Patient denies travel to an Ebola-affected area in the 21 days before illness onset. Initial Sepsis Screen: Does the patient meet any 2 criteria? No. Patient's initial sepsis screen is negative. Does the patient have a suspected source of infection? No. Patient's initial sepsis screen is negative. Risk Assessment: Do you want to hurt yourself or someone else? Patient reports no desire to harm self or others. Onset of symptoms was October 16, 2021. 17:15 Method Of Arrival: Ambulatory tw2 17:15 Acuity: KATARINA 2 tw2 Triage Assessment: 17:17 General: Appears in no apparent distress. well groomed, Behavior is calm, cooperative, tw2 appropriate for age. Pain: Complains of pain in lumbar area and right low back Pain radiates to left low back. Musculoskeletal: Range of motion: intact in all extremities. Historical: - Allergies: 17:18 No Known Allergies; tw2 - Home Meds: 17:18 aspirin 81 mg Oral chew 1 tab once daily [Active]; Creon 36,000-114,000- 180,000 unit tw2 Oral cpDR 1 cap 3 times per day [Active]; Levemir 40 units subcutaneous [Active]; lisinopril 20 mg Oral tab 1 tab once daily [Active]; metoprolol tartrate 50 mg Oral tab [Active]; Novolog Sub-Q 25 unit daily [Active]; pantoprazole 40 mg Oral TbEC 1 tab once daily [Active]; Premarin 1.25 mg Oral tab 1 tab once daily [Active]; simvastatin 20 mg Oral tab nightly [Active]; 17:20 carvedilol 25 mg oral tab 1 tab 2 times per day [Active]; montelukast 10 mg oral tab 1 tw2 tab once daily [Active]; cetirizine 10 mg oral tab 1 tab once daily [Active]; metformin 750 mg Oral Tb24 1 tab twice a day [Active]; Tresiba FlexTouch U-100 100 unit/mL (3 mL) subcutaneous inpn 80 units every morning [Active]; - PMHx: 17:18 syndrome x; Myocardial infarction; Hypertension; early alzheimers; Diabetes - IDDM; tw2 - Immunization history:: Adult Immunizations. - Social history:: Smoking status: . Screenin:30 Abuse screen: Denies threats or abuse. Denies injuries from another. Nutritional jha screening: No deficits noted. Tuberculosis screening: No symptoms or risk factors identified. Fall Risk None identified. Assessment: 17:29 General: Appears in no apparent distress. Behavior is calm, cooperative. Pain: jha Complains of pain in back Pain began gradually, 2-3 days ago. Neuro: No deficits noted. Cardiovascular: Reports fatigue, high blood pressure. 17:31 Neuro: Oriented to person, place, time, situation, Appropriate for age. jha 19:24 General: Appears uncomfortable, Behavior is calm, cooperative, appropriate for age. tw5 General: Reports " I would really like something for the pain, I feel like my back is just killing me!". Pain: Complains of pain in low back area Pain currently is 9 out of 10 on a pain scale. 19:36 Reassessment: " I dont feel anything now, it is such a relief" Patient denies pain at tw5 this time. Patient states feeling better. Patient states symptoms have improved. 20:31 Reassessment: Patient appears in no apparent distress at this time. No changes from tw5 previously documented assessment. Patient and/or family updated on plan of care and expected duration. Pain level reassessed. Patient is alert, oriented x 3, equal unlabored respirations, skin warm/dry/pink. Patient states feeling better. 22:44 GI: Pt is actively vomiting clear fluid. tw5 Vital Signs: 17:15 BP 210 / 93; Pulse 78; Resp 17; Temp 98.2(O); Pulse Ox 100% on R/A; Weight 79.83 kg; tw2 Height 5 ft. 0 in. (152.40 cm) (R); Pain 9/10; 19:24 BP 190 / 88; Pulse 80; Resp 18; Pulse Ox 98% on R/A; tw5 19:36 BP 151 / 67; Pulse 82; Resp 18; Pulse Ox 100% on R/A; Pain 0/10; tw5 20:31 BP 147 / 71; Pulse 81; Resp 18; Pulse Ox 99% on R/A; Pain 2/10; tw5 22:44 BP 182 / 108; Pulse 92; Resp 18; Pulse Ox 99% on R/A; Pain 4/10; tw5 23:46 BP 107 / 60; Pulse 87; Resp 18 S; Pulse Ox 97% on R/A; as6 17:15 Body Mass Index 34.37 (79.83 kg, 152.40 cm) tw2 ED Course: 17:08 Patient arrived in ED. mr 17:17 Triage completed. tw2 17:17 Arm band placed on. tw2 17:30 No provider procedures requiring assistance completed. jha 17:31 Patient has correct armband on for positive identification. Bed in low position. jha 17:35 Sherman Horner PA is PHCP. jmm 17:35 Willis Alejandre MD is Attending Physician. jmm 18:04 XRAY Chest (1 view) In Process Unspecified. EDMS 18:28 EKG done, by ED staff, reviewed by Sherman BROCK. dh3 18:39 SARS-COV-2 RT PCR (Document "Date of Onset" if Symptomatic) Sent. jha 18:39 Basic Metabolic Panel Sent. jha 18:39 CBC with Automated Diff Sent. jha 18:39 Urine Culture Sent. jha 18:39 Blood Culture Adult (2) Sent. jha 18:39 Procalcitonin Sent. jha 18:39 Lactate Sent. jha 18:39 Basic Metabolic Panel Sent. jha 18:39 CBC with Diff Sent. jha 18:40 LFT's Sent. jha 18:40 Magnesium Sent. jha 18:40 NT PRO-BNP Sent. jha 18:40 PT-INR Sent. jha 18:40 Troponin (emerg Dept Use Only) Sent. jha 19:10 SARS-COV-2 RT PCR (Document "Date of Onset" if Symptomatic) Sent. tw5 19:13 Rob Cohen, MIKE is Primary Nurse. as6 19:24 Awaiting lab results. tw5 19:24 Placed in gown. Call light in reach. Adult w/ patient. monitoring and evaluation advisor on. Pulse ox on. tw5 NIBP on. Door closed. Noise minimized. Moved to private room. Warm blanket given. Verbal reassurance given. 19:24 IV is patent, with fluids infusing freely, with good blood return. tw5 20:59 CT Abd/Pelvis - IV Contrast Only In Process Unspecified. EDMS 23:47 IV discontinued, intact, bleeding controlled, No redness/swelling at site. Pressure as6 dressing applied. Administered Medications: 18:12 CANCELLED (different medication usedd): carvedilol 12.5 mg PO once; administer with foodjmm 19:24 Drug: Zofran (Ondansetron) 4 mg Route: IVP; Site: left antecubital; tw5 19:37 Follow up: Response: No adverse reaction tw5 19:24 Drug: hydrALAZINE 10 mg Route: IVP; Site: left antecubital; tw5 19:37 Follow up: Response: No adverse reaction; Blood pressure is lowered tw5 19:25 Drug: morphine 4 mg Route: IVP; Site: left antecubital; tw5 19:37 Follow up: Response: No adverse reaction; Pain is decreased; RASS: Alert and Calm (0) tw5 19:33 Drug: NS 0.9% 500 ml Route: IV; Rate: bolus; Site: left antecubital; tw5 21:50 Drug: morphine 4 mg Route: IVP; Site: left antecubital; as6 23:47 Follow up: Response: No adverse reaction; RASS: Alert and Calm (0) as6 21:55 Drug: Zofran (Ondansetron) 4 mg Route: IVP; Site: left antecubital; as6 23:47 Follow up: Response: No adverse reaction as6 22:40 Drug: Promethazine 12.5 mg Route: IVP; Site: left antecubital; tw5 23:47 Follow up: Response: No adverse reaction as6 Outcome: 23:24 Discharge ordered by . hannah 23:46 Discharged to home via wheelchair, with significant other. as6 23:46 Condition: stable 23:46 Discharge instructions given to patient, Instructed on discharge instructions, follow up and referral plans. medication usage, Demonstrated understanding of instructions, follow-up care, medications, Prescriptions given X 3. 23:48 Patient left the ED. as6 Signatures: Dispatcher [employer] EDMS Sherman Horner PA PA jmm Rivera, Mary mr Kathe Connolly, RN RN tw2 Bee Vang 3 Jacqueline Ellis tw5 Rob Cohen RN RN as6 Ruthy-StagerJoie Corrections: (The following items were deleted from the chart) 17:19 17:15 Acuity: KATARINA 3 tw2 tw 17:22 17:18 Home Meds: gabapentin 300 mg Oral cap 2 caps nightly; tw2 tw2
--- NOTE | 2021-10-16 23:25 | EDPHYS ---
Physician Documentation [facility] Name: Rosa Crow Age: 56 yrs Sex: Female : 1965 Arrival Date: 10/16/2021 Time: 17:08 Bed 4 Private MD: ED Physician Willis Alejandre HPI: 10/16 17:50 This 56 yrs old Female presents to ER via Ambulatory with complaints of Back jmm Pain, Nausea, Decreased Appetite. 17:50 The patient presents with pain that is acute. The symptoms are located in the low back. jmm Onset: The symptoms/episode began/occurred gradually, 3 day(s) ago. The pain does not radiate. Associated signs and symptoms: Pertinent positives: nausea. Modifying factors: The patient symptoms are alleviated by nothing, the patient symptoms are aggravated by any movement. The patient has not experienced similar symptoms in the past. Denies known injury. Denies fever. Patient does state having some nausea. Historical: - Allergies: 17:18 No Known Allergies; tw2 - Home Meds: 17:18 aspirin 81 mg Oral chew 1 tab once daily [Active]; Creon 36,000-114,000- 180,000 unit tw2 Oral cpDR 1 cap 3 times per day [Active]; Levemir 40 units subcutaneous [Active]; lisinopril 20 mg Oral tab 1 tab once daily [Active]; metoprolol tartrate 50 mg Oral tab [Active]; Novolog Sub-Q 25 unit daily [Active]; pantoprazole 40 mg Oral TbEC 1 tab once daily [Active]; Premarin 1.25 mg Oral tab 1 tab once daily [Active]; simvastatin 20 mg Oral tab nightly [Active]; 17:20 carvedilol 25 mg oral tab 1 tab 2 times per day [Active]; montelukast 10 mg oral tab 1 tw2 tab once daily [Active]; cetirizine 10 mg oral tab 1 tab once daily [Active]; metformin 750 mg Oral Tb24 1 tab twice a day [Active]; Tresiba FlexTouch U-100 100 unit/mL (3 mL) subcutaneous inpn 80 units every morning [Active]; - PMHx: 17:18 syndrome x; Myocardial infarction; Hypertension; early alzheimers; Diabetes - IDDM; tw2 - Immunization history:: Adult Immunizations. - Social history:: Smoking status: . ROS: 17:50 Constitutional: Negative for fever, chills, and weight loss, Cardiovascular: Negative jmm for chest pain, palpitations, and edema, Respiratory: Negative for shortness of breath, cough, wheezing, and pleuritic chest pain. 17:50 Back: Positive for pain with movement. 17:50 All other systems are negative. Exam: 17:50 Constitutional: This is a well developed, well nourished patient who is awake, alert, jmm and in no acute distress. Head/Face: atraumatic. Eyes: EOMI, no conjunctival erythema appreciated ENT: Moist Mucus Membranes Neck: Trachea midline, Supple Chest/axilla: Normal chest wall appearance and motion. Cardiovascular: Regular rate and rhythm. No edema appreciated Respiratory: Normal respirations, no respiratory distress appreciated Abdomen/GI: Non distended, soft 17:50 Neuro: Awake and alert, normal gait Psych: Behavior is normal, Mood is normal, Patient is cooperative and pleasant 17:50 Back: pain, that is moderate, of the right flank. 17:50 Musculoskeletal/extremity: ROM: intact in all extremities. Vital Signs: 17:15 BP 210 / 93; Pulse 78; Resp 17; Temp 98.2(O); Pulse Ox 100% on R/A; Weight 79.83 kg; tw2 Height 5 ft. 0 in. (152.40 cm) (R); Pain 9/10; 19:24 BP 190 / 88; Pulse 80; Resp 18; Pulse Ox 98% on R/A; tw5 19:36 BP 151 / 67; Pulse 82; Resp 18; Pulse Ox 100% on R/A; Pain 0/10; tw5 20:31 BP 147 / 71; Pulse 81; Resp 18; Pulse Ox 99% on R/A; Pain 2/10; tw5 22:44 BP 182 / 108; Pulse 92; Resp 18; Pulse Ox 99% on R/A; Pain 4/10; tw5 23:46 BP 107 / 60; Pulse 87; Resp 18 S; Pulse Ox 97% on R/A; as6 17:15 Body Mass Index 34.37 (79.83 kg, 152.40 cm) tw2 MDM: 17:50 Patient medically screened. hannah 22:36 Data reviewed: vital signs, nurses notes. [facility] 22:36 Counseling: I had a detailed discussion with the patient and/or guardian regarding: the [facility] historical points, exam findings, and any diagnostic results supporting the discharge/admit diagnosis, lab results, radiology results, the need for outpatient follow up, to return to the emergency department if symptoms worsen or persist or if there are any questions or concerns that arise at home. ED course: Pain decreased in the ED. Pain most likely MS. Advised to follow up with pcp and otherwise given strict return precautions. Patient understood. 10/16 17:57 Order name: Basic Metabolic Panel [facility] 10/16 17:57 Order name: CBC with Diff [facility] 10/16 17:57 Order name: LFT's; Complete Time: 21:44 [facility] 10/16 17:57 Order name: Magnesium; Complete Time: 21:44 [facility] 10/16 17:57 Order name: NT PRO-BNP; Complete Time: 21:44 [facility] 10/16 17:57 Order name: PT-INR; Complete Time: 19:00 [facility] 10/16 17:57 Order name: Troponin (emerg Dept Use Only); Complete Time: 21:44 [facility] 10/16 17:57 Order name: Procalcitonin; Complete Time: 19:31 [facility] 10/16 17:57 Order name: Lactate; Complete Time: 19:19 [facility] 10/16 17:57 Order name: Blood Culture Adult (2) [facility] 10/16 17:57 Order name: Urine Culture [facility] 10/16 17:58 Order name: Basic Metabolic Panel; Complete Time: 21:44 [facility] 10/16 17:58 Order name: CBC with Automated Diff; Complete Time: 19:00 [facility] 10/16 18:03 Order name: SARS-COV-2 RT PCR (Document "Date of Onset" if Symptomatic); Complete Time: [facility] 19:31 10/16 17:57 Order name: XRAY Chest (1 view); Complete Time: 18:11 [facility] 10/16 17:57 Order name: EKG; Complete Time: 17:58 [facility] 10/16 17:57 Order name: Cardiac monitoring; Complete Time: 18:28 [facility] 10/16 17:57 Order name: EKG - Nurse/Tech; Complete Time: 18:28 [facility] 10/16 17:57 Order name: IV Saline Lock; Complete Time: 18:39 [facility] 10/16 17:57 Order name: CT Abd/Pelvis - IV Contrast Only; Complete Time: 21:21 [facility] 10/16 18:28 Order name: Urine Dipstick-Ancillary; Complete Time: 18:30 [facility] 10/16 21:14 Order name: CREATININE WHOLE BLOOD; Complete Time: 21:21 [facility] 10/16 17:57 Order name: Labs collected and sent; Complete Time: 18:39 [facility] 10/16 17:57 Order name: O2 Per Protocol; Complete Time: 18:39 [facility] 10/16 17:57 Order name: O2 Sat Monitoring; Complete Time: 18:40 [facility] 10/16 17:57 Order name: Urine Dipstick-Ancillary (obtain specimen); Complete Time: 18:29 [facility] Administered Medications: 18:12 CANCELLED (different medication usedd): carvedilol 12.5 mg PO once; administer with foodmm 19:24 Drug: Zofran (Ondansetron) 4 mg Route: IVP; Site: left antecubital; tw5 19:37 Follow up: Response: No adverse reaction tw5 19:24 Drug: hydrALAZINE 10 mg Route: IVP; Site: left antecubital; tw5 19:37 Follow up: Response: No adverse reaction; Blood pressure is lowered tw5 19:25 Drug: morphine 4 mg Route: IVP; Site: left antecubital; tw5 19:37 Follow up: Response: No adverse reaction; Pain is decreased; RASS: Alert and Calm (0) tw5 19:33 Drug: NS 0.9% 500 ml Route: IV; Rate: bolus; Site: left antecubital; tw5 21:50 Drug: morphine 4 mg Route: IVP; Site: left antecubital; as6 23:47 Follow up: Response: No adverse reaction; RASS: Alert and Calm (0) as6 21:55 Drug: Zofran (Ondansetron) 4 mg Route: IVP; Site: left antecubital; as6 23:47 Follow up: Response: No adverse reaction as6 22:40 Drug: Promethazine 12.5 mg Route: IVP; Site: left antecubital; tw5 23:47 Follow up: Response: No adverse reaction as6 Disposition: 10/17 08:17 Co-signature as Attending Physician, Willis Alejandre MD I agree with the assessment and kdr plan of care. Disposition Summary: 10/16/21 23:24 Discharge Ordered Location: Home [facility] Condition: Stable [facility] Diagnosis - Low back pain jmm - Vomiting jmm Followup: jmm - With: Private Physician - When: 2 - 3 days - Reason: Recheck today's complaints, Continuance of care, Re-evaluation by your physician Discharge Instructions: - Discharge Summary Sheet jmm - Acute Back Pain, Adult jmm - Vomiting, Adult jmm Forms: - Medication Reconciliation Form [facility] - Thank You Letter [facility] - Antibiotic Education m - Prescription Opioid Use [facility] Prescriptions: - Ibuprofen 800 mg Oral Tablet - take 1 tablet by ORAL route every 8 hours As needed take with food; 30 tablet; jmm Refills: 0, Product Selection Permitted - Valium 5 mg Oral Tablet - take 1 tablet by ORAL route every 8 hours As needed; 20 tablet; Refills: 0, [facility] Product Selection Permitted - ondansetron 8 mg Oral tablet,disintegrating - take 1 tablet by ORAL route every 8 hours; 30 tablet; Refills: 0, Product [facility] Selection Permitted Signatures: Dispatcher [employer] EDMS Willis Alejandre MD MD [facility] [address] Sherman Horner PA PA [facility] Kathe Connolly RN RN tw2 Jacqueline Ellis tw5 Rob Cohen RN RN as6 Corrections: (The following items were deleted from the chart) 10/16 17:22 17:18 Home Meds: gabapentin 300 mg Oral cap 2 caps nightly; tw2 tw 18:12 17:57 carvedilol 12.5 mg PO once; administer with food ordered. jmm acacia
[2021-10-17 00:30] VITALS: TEMP 98.2
[2021-10-17 00:37] VITALS: BP 107/60; O2SAT 97
== END 2021-10-16 23:48 | disposition home or self-care (01) ==
LOC: ER 16:44
DX: M54.50 Low back pain, unspecified (principal); R11.10 Vomiting, unspecified; I10 Essential (primary) hypertension; E11.9 Type 2 diabetes mellitus without complications; G30.9 Alzheimer's disease, unspecified; F02.80 Dementia in other diseases classified elsewhere, unspecified severity, without behavioral disturbance, psychotic disturbance, mood disturbance, and anxiety; Z79.82 Long term (current) use of aspirin; Z20.822 Contact with and (suspected) exposure to COVID-19
CPT/HCPCS: 93005; 87040 ×2; 87088; 85025; 87086; 80048; 36415; 83735; 85610; 82565; 80076; 83605; 81003; 84484; 84145; 83880; 74177; 71045; 96375; 96374; 99284; U0003; Q9967; J0360; J2550; J7040; J2405 ×2

== ENCOUNTER 2021-10-23 17:49 | Emergency (ER) | payer BC ==
--- OUTSIDE RECORDS SUMMARY | 2021-10-23 17:53 | XMS REPORT | Continuity of Care Document ---
:1965 Author Organization Formerly [facility] t Address [address] [place] [address] Care Team Providers Name Role Phone Phyllis Ayon Primary Care Physician ARELI Attending Clinician Unavailable Areli FARMERP Attending Clinician Doctor Unassigned, Name Attending Clinician Unavailable Taiwo RUBI Attending Clinician IVONNE Attending Clinician Unavailable Lab, Fam Pob I Attending Clinician Unavailable Payers Payer Name Policy Type Policy Number Effective Date Expiration Date S nataliia [place] [facility] [id number] 2020 00:00:00 Problems Condition Condition Condition Status Onset Resolution Last Treating Co mments Source Name Details Category Date Date Treatment Clinician Date Abdominal Abdominal Disease Active Uni vers pain pain 1-04 ity of 00:00: [address] Obesity Obesity Disease Active Univers (BMI (BMI 7-09 ity of 30-39.9) 30-39.9) 00:00: [address] Type 1 Type 1 Disease Active Univers diabetes diabetes 6-10 ity of mellitus mellitus 00:00: [address] Neuropathy Neuropathy Disease Active U nivers 6-10 ity of 00:00: [address] Essential Essential Disease Active Uni vers hypertensi hypertensi 6-10 it y of on on 00:00: [address] UTI (lower UTI (lower Disease Active U nivers urinary urinary 3-04 ity of tract tract 00:00: [place] infection) infection) 00 Me dical Branch 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 Pancreas divisumIC D10 Diagnosis Term Crime Lab Analyst Utility Essential Essential Disease Active Overview: Univers hypertensi hypertensi 3-11 Formattin ity of on on 00:00: g of this [place] 00 note Medical might be Branch different from the original. ICD10 Diagnosis Term Crime Lab Analyst Utility Follow-up Follow-up Disease Active Overview: Univers examinatio examinatio 2-19 Formattin ity of n n 00:00: g of this note Medical might be Branch different from the original. ICD10 Diagnosis Term Crime Lab Analyst Utility Allergies, Adverse Reactions, Alerts Allergy Allergy Status Severity Reaction(s) Onset Inactive Treating Comm ents Source Name Type Date Date Clinician Amoxicil Propensi Active Hives Red, Univer s caitie-Pot ty to 2-05 swelling ity of Clavulan adverse 00:00: in face [place] ate reaction 00 Medical s Branch AMOXICIL DRUG Active Hives Univers CAITIE-POT 2-05 ity of CLAVULAN 00:00: [place] ATE 00 Medical Branch Social History Social Habit Start Date Stop Date Quantity Comments Source Exposure to Not sure [facility] SARS-CoV-2 [place] Medical (event) Branch Alcohol intake 2021-10-21 2021-10-21 Current University of 00:00:00 00:00:00 non-drinker of [facility] alcohol Branch (finding) Sex Ass[birth year] Universit y of 00:00:00 00:00:00 [facility] Smoking Status Start Date Stop Date Source Never smoker [facility] Branch Medications Ordered Filled Start Stop Current Ordering Indication Dosage Frequency Signature Comments Components Source Medication Medication Date Date Medication? Clinician (SIG) Name Name methocarbam 2020-10- No 1000mg 1,000 mg, Univers oL 12-22 Oral, ity of (ROBAXIN) 18:00: 17:28 ONCE, 1 [place] tablet [place] :00 dose, On Medical 1,[address] [facility] 10/21/21 at 1200, NORMA ketorolac 2020-10 No 60mg 60 mg, Unive rs (TORADOL) 12-22 Intramuscu ity of injection 18:00: 17:29 lar, ONCE, [place] 60 mg 00 :00 1 dose, On Medical [facility] 10/21/21 at 1200, NORMA methocarbam 2020-10 Yes [id number] 750mg Take 1 Univers oL 750 mg 12-22 tablet by ity o f tablet 00:00: mouth 4 00 (four) Medical times Branch daily as needed for Pain (scale 7-10). ESTROGENS, Yes .625mg Take 0.625 Univers CONJUGATED 8-25 mg by ity of (PREMARIN 09:32: mouth [place] ORAL) 30 daily. Medical Branch ACYCLOVIR, Yes 800mg 800 mg. Uni vers BULK, MISC 8-25 ity of 09:32: [place] 30 Medical Branch ESTROGENS, Yes .625mg Take 0.625 Univers CONJUGATED 8-25 mg by ity of (PREMARIN 09:32: mouth [place] ORAL) 30 daily. Medical Branch ACYCLOVIR, Yes 800mg 800 mg. Uni vers BULK, MISC 8-25 ity of 09:32: [place] 30 Medical Branch ESTROGENS, Yes .625mg Take 0.625 Univers CONJUGATED 8-25 mg by ity of (PREMARIN 09:32: mouth [place] ORAL) 30 daily. Medical Branch ACYCLOVIR, 0 Yes 800mg 800 mg. Uni vers BULK, MISC 8-25 ity of 09:32: [address] aspirin 81 0 Yes 81mg Take 81 mg U nivers mg tablet 8-25 by mouth ity of 09:30: daily. [address] aspirin 81 0 Yes 81mg Take 81 mg U nivers mg tablet 8-25 by mouth ity of 09:30: daily. [address] aspirin 81 0 Yes 81mg Take 81 mg U nivers mg tablet 8-25 by mouth ity of 09:30: daily. [address] simvastatin Yes 20mg Take 20 mg Univers (ZOCOR) 20 8-25 by mouth ity o f mg tablet 09:29: at [place] [address] bedtime. [facility] Branch pantoprazol 0 Yes 40mg Take 40 mg Univers e 40 mg EC 8-25 by mouth ity o f tablet 09:29: daily. [address] lisinopril 0 Yes 5mg Take 5 mg Un saima 5 mg tablet 8-25 by mouth ity of 09:29: daily. [address] simvastatin Yes 20mg Take 20 mg Univers (ZOCOR) 20 8-25 by mouth ity o f mg tablet 09:29: at [place] [address] bedtime. [facility] Branch pantoprazol 0 Yes 40mg Take 40 mg Univers e 40 mg EC 8-25 by mouth ity o f tablet 09:29: daily. [address] lisinopril 0 Yes 5mg Take 5 mg Un saima 5 mg tablet 8-25 by mouth ity of 09:29: daily. [address] simvastatin 0 Yes 20mg Take 20 mg Univers (ZOCOR) 20 8-25 by mouth ity o f mg tablet 09:29: at [place] [address] bedtime. [facility] Branch pantoprazol 0 Yes 40mg Take 40 mg Univers e 40 mg EC 8-25 by mouth ity o f tablet 09:29: daily. [address] lisinopril 0 Yes 5mg Take 5 mg Un saima 5 mg tablet 8-25 by mouth ity of 09:29: daily. [address] insulin Yes [id number] 20U inject 20 U nivers aspart 8-25 Units ity of U-100 00:00: under the [place] (NOVOLOG 00 skin 3 Medical FLEXPEN (three) Branch U-100 times INSULIN) daily 100 unit/mL before (3 mL) meals. injection insulin Yes [id number] 80U inject 80 U nivers degludec 8-25 Units ity of (TRESIBA 00:00: [place] FLEXTOUCH 00 skin every Medi danielle U-200) 200 morning. Branc h unit/mL (3 mL) InPn metformin Yes [id number] 750mg Take 1 U nivers ER 750 mg 8-25 tablet by ity o f 24 hr 00:00: mouth 2 [place] tablet 00 (two) Medical times Branch daily with meals. Insulin Yes [id number] 4 times a U nivers [place], 8-25 day , ity of Disposable, 00:00: Dx:E11.49 [place] (BD INSULIN 00 Medical PEN NEEDLE Branch UF) 31 gauge x 5/16" Ndle insulin Yes [id number] 20U inject 20 U nivers aspart 8-25 Units ity of U-100 00:00: under the [place] (NOVOLOG 00 skin 3 Medical FLEXPEN (three) Branch U-100 times INSULIN) daily 100 unit/mL before (3 mL) meals. injection insulin Yes [id number] 80U inject 80 U nivers degludec 8-25 Units ity of (TRESIBA 00:00: [place] FLEXTOUCH 00 skin every Medi danielle U-200) 200 morning. Branc h unit/mL (3 mL) InPn metformin Yes [id number] 750mg Take 1 U nivers ER 750 mg 8-25 tablet by ity o f 24 hr 00:00: mouth 2 [place] tablet 00 (two) Medical times Branch daily with meals. Insulin Yes [id number] 4 times a U nivers [place], 8-25 day , ity of Disposable, 00:00: Dx:E11.49 [place] (BD INSULIN 00 Medical PEN NEEDLE Branch UF) 31 gauge x 5/16" Ndle insulin Yes [id number] 20U inject 20 U nivers aspart 8-25 Units ity of U-100 00:00: under the [place] (NOVOLOG 00 skin 3 Medical FLEXPEN (three) Branch U-100 times INSULIN) daily 100 unit/mL before (3 mL) meals. injection insulin Yes [id number] 80U inject 80 U nivers degludec 8-25 Units ity of (TRESIBA 00:00: under the [place] FLEXTOUCH 00 skin every Medi danielle U-200) 200 morning. Branc h unit/mL (3 mL) InPn metformin Yes [id number] 750mg Take 1 U nivers ER 750 mg 8-25 tablet by ity o f 24 hr 00:00: mouth 2 [place] tablet 00 (two) Medical [facility] daily with meals. Insulin Yes [id number] 4 times a U nivers [place], 8- day , ity of Disposable, 00:00: Dx:E11.49 [place] (BD INSULIN Medical PEN NEEDLE Branch UF) 31 gauge x 5/16" Ndle cetirizine Yes 10mg Take 10 mg U nivers 10 mg 8-13 by mouth ity of tablet 00:00: daily. [address] Branch montelukast Yes 10mg Take 10 mg Univers 10 mg 8-13 by mouth ity of tablet 00:00: daily. [address] Branch cetirizine 0 Yes 10mg Take 10 mg U nivers 10 mg 8-13 by mouth ity of tablet 00:00: daily. [address] Branch montelukast 0 Yes 10mg Take 10 mg Univers 10 mg 8-13 by mouth ity of tablet 00:00: daily. [place] [facility] Branch cetirizine 0 Yes 10mg Take 10 mg U nivers 10 mg 8-13 by mouth ity of tablet 00:00: daily. [address] Branch montelukast 0 Yes 10mg Take 10 mg Univers 10 mg 8-13 by mouth ity of tablet 00:00: daily. [address] Branch carvediloL Yes 25mg Take 25 mg U nivers 25 mg 7-13 by mouth 2 ity of tablet 00:00: (two) [address] daily with Branch meals. carvediloL 0 Yes 25mg Take 25 mg U nivers 25 mg 7-13 by mouth 2 ity of tablet 00:00: (two) [place] 00 times Medical daily with Branch meals. carvediloL 2020-0 Yes 25mg Take 25 mg U nivers 25 mg 7-13 by mouth 2 ity of tablet 00:00: (two) [place] 00 times Medical daily with Branch meals. Cholecalcif 2020-0 Yes 1 CAPSULE U nivers imtiaz, - ONCE A ity of Vitamin D3, 00:00: WEEK X 12 [place] 1,250 mcg 00 WEEKS Medical (50,000 ORALLY 30 Branch unit) DAY(S) capsule Cholecalcif 2020-0 Yes 1 CAPSULE U nivers imtiaz, - ONCE A ity of Vitamin D3, 00:00: WEEK X 12 [place] 1,250 mcg 00 WEEKS Medical (50,000 ORALLY 30 Branch unit) DAY(S) capsule Cholecalcif 2020-0 Yes 1 CAPSULE U nivers imtiaz, - ONCE A ity of Vitamin D3, 00:00: WEEK X 12 [place] 1,250 mcg 00 WEEKS Medical (50,000 ORALLY 30 Branch unit) DAY(S) capsule ondansetron 2018-10 Yes [id number] 4mg Take 1 Univers (ZOFRAN 0-18 tablet by ity of ODT) 4 mg 00:00: mouth [place] disintegrat 00 every 8 Medic al ing tablet (eight) Branch hours as needed for Nausea and Vomiting (N/V). traMADol 2018-10 Yes [id number] 50mg Take 1 Uni vers (ULTRAM) 50 0-18 tablet by ity of mg tablet 00:00: mouth [place] 00 every 8 Medical (eight) Branch hours as needed for Pain (scale 4-6). ondansetron 2018-10 Yes [id number] 4mg Take 1 Univers (ZOFRAN 0-18 tablet by ity of ODT) 4 mg 00:00: mouth [place] disintegrat 00 every 8 Medic al ing tablet (eight) Branch hours as needed for Nausea and Vomiting (N/V). traMADol 2018-10 Yes [id number] 50mg Take 1 Uni vers (ULTRAM) 50 0-18 tablet by ity of mg tablet 00:00: mouth [place] 00 every 8 Medical (eight) Branch hours as needed for Pain (scale 4-6). ondansetron 2018-10 Yes [id number] 4mg Take 1 Univers (ZOFRAN 0-18 tablet by ity of ODT) 4 mg 00:00: mouth [place] disintegrat 00 every 8 Medic al ing tablet (eight) Branch hours as needed for Nausea and Vomiting (N/V). traMADol 2018-10 Yes [id number] 50mg Take 1 Uni vers (ULTRAM) 50 [...] as needed for Nausea and Vomiting (N/V). proMETHazin Yes 25mg Take 1 Univ ers e 7-31 tablet by ity of (PHENERGAN) 00:00: mouth [place] 25 mg 00 every 6 Medical tablet (six) Branch hours as needed for Nausea and Vomiting (N/V). proMETHazin Yes 25mg Take 1 Univ ers e 7-31 tablet by ity of (PHENERGAN) 00:00: mouth [place] 25 mg 00 every 6 Medical tablet (six) Branch hours as needed for Nausea and Vomiting (N/V). gabapentin Yes TAKE 2 Unive rs (NEURONTIN) 4-04 CAPSULES ity of 300 mg 00:00: BY MOUTH [place] capsule 00 ONCE A DAY Medica l Branch gabapentin Yes TAKE 2 Unive rs (NEURONTIN) 4-04 CAPSULES ity of 300 mg 00:00: BY MOUTH [place] capsule 00 ONCE A DAY Medica l Branch gabapentin Yes TAKE 2 Unive rs (NEURONTIN) 4-04 CAPSULES ity of 300 mg 00:00: BY MOUTH [place] capsule 00 ONCE A DAY Medica l Branch METOPROLOL Yes 1 Tab Oral U nivers SUCCINATE 6-15 DAILY ity of 50 MG ORAL 00:00: [place] [address] Medical Branch METOPROLOL 2007-0 Yes 1 Tab Oral U nivers SUCCINATE 6-15 DAILY ity of 50 MG ORAL 00:00: [facility]24 Medical Branch METOPROLOL 2007- Yes 1 Tab Oral U nivers SUCCINATE 6-15 DAILY ity of 50 MG ORAL 00:00: [facility]24 00 [facility] Immunizations Ordered Filled Immunization Date Status Comments [facility] e Immunization Name Name SARS-COV-2 COVID-19 2020-12-29 Completed Unive rsity of MODERNA VACCINE 00:00:00 [facility] SARS-COV-2 COVID-19 2020-12-29 Completed Unive rsity of MODERNA VACCINE 00:00:00 [facility] SARS-COV-2 COVID-19 2020-12-29 Completed Unive rsity of MODERNA VACCINE 00:00:00 [facility] SARS-COV-2 COVID-19 2020-12-01 Completed Unive rsity of MODERNA VACCINE 00:00:00 [facility] SARS-COV-2 COVID-19 2020-12-01 Completed Unive rsity of MODERNA VACCINE 00:00:00 [facility] SARS-COV-2 COVID-19 2020-12-01 Completed Unive rsity of MODERNA VACCINE 00:00:00 [facility] Pneumococcal 2017-06-26 Completed University o f Polysaccharide, 00:00:00 [facility] PPSV23 (PNEUMOVAX) Branch Influenza Virus 2017-06-26 Completed Universit y of Vaccine Quad ID 00:00:00 [facility] 18-64 YRS Branch Pneumococcal 2017-06-26 Completed University o f Polysaccharide, 00:00:00 [facility] PPSV23 (PNEUMOVAX) Branch Influenza Virus 2017-06-26 Completed Universit y of Vaccine Quad ID 00:00:00 [facility] 18-64 YRS Branch Pneumococcal 2017-06-26 Completed University o f Polysaccharide, 00:00:00 [facility] PPSV23 (PNEUMOVAX) Branch Influenza Virus 2017-06-26 Completed Universit y of Vaccine Quad ID 00:00:00 [facility] 18-64 YRS Branch Vital Signs Vital Name Observation Time Observation Value Comments Source Systolic blood 2021-10-21 16:45:00 174 mm[Hg] Univer sity of pressure [facility] Diastolic blood 2021-10-21 16:45:00 106 mm[Hg] Unive rsity of pressure [facility] Heart rate 2021-10-21 16:45:00 77 /min [facility] Body temperature 2021-10-21 16:45:00 36.67 [place] [facility] [place] [facility] Respiratory rate 2021-10-21 16:45:00 18 /min [facility] [place] [facility] Body weight 2021-10-21 16:45:00 80.287 kg Universi ty of [place] [facility] [place] BMI 2021-10-21 16:45:00 34.57 kg/m2 Universi ty [facility] Oxygen saturation in 2021-10-21 16:45:00 98 /min University of Arterial blood by [facility] Pulse oximetry Branch Systolic blood 2021-09-10 17:30:00 136 mm[Hg] Univer sity of pressure [facility] Diastolic blood 2021-09-10 17:30:00 82 mm[Hg] Unive rsity of [facility] Heart rate 2021-09-10 17:30:00 86 /min Universi ty [facility] Respiratory rate 2021-09-10 17:30:00 16 /min [facility] [place] [facility] Body height 2021-09-10 17:30:00 152.4 cm Universi ty [facility] Body weight 2021-09-10 17:30:00 80.377 kg Universi ty [facility] Medical Branch BMI 2021-09-10 17:30:00 34.61 kg/m2 Universi ty [facility] Oxygen saturation in 2021-09-10 17:30:00 96 /min University of Arterial blood by [facility] Pulse oximetry Branch Procedures Procedure Date / Time Performed Performing Clinician Sourc e URINALYSIS 2021-10-21 17:26:00 Emil Singleton [facility] NOTICE OF PRIVACY 2021-10-21 16:31:01 Doctor Unassigned, No Univ [facility] PRACTICES Name Medical Branch POCT HEMOGLOBIN A1C 2021-09-10 17:47:00 Vega [place] [facility] Encounters Start End Encounter Admission Attending Care Care Encounter Source Date/Time Date/Time Type Type Clinicians Facility Department ID 2021-10-21 2021-10-21 Emergency X EMILE SINGLETON ERT [id number] Univers 10:47:00 14:42:00 EMIL last [facility] 2021-10-21 2021-10-21 Emergency EMILE Singleton [id number] Univers 10:47:00 14:42:00 Emil YOVANI [id number] i ty of [facility] [id number] [place] [phone] [facility] 084 Branch 2021-10-21 2021-10-21 Orders Doctor LAURITA [id number] Univers 00:00:00 00:00:00 Only Unassigned, KAREEN [id number] ity of [place] [facility] [id number] [place] [id number] [facility] 009 Branch 2021-09-10 2021-09-10 Office [place], [email or web address] [id number] Univers 11:24:11 12:03:42 Visit [facility] [id number] it y [facility] [id number] [place] SINDY?BLEA [phone] Il sergo CELESTE 220 Branch MEDICAL OFFICE BUILDING 2020 2020 Outpatient IVNONE, [facility] [id number] 00:00:00 00:00:00 MAHSA 794 Method i 2020-06-06 2020-06-06 Outpatient IVONNE, [facility] [id number] 00:00:00 00:00:00 MAHSA 946 Method i 2020-05-13 2020-05-13 Laboratory Lab, [facility] [id number] 13:33:49 13:53:49 Only Fam Pob I Health [id number] [place] [id number] Professio [id number] nal [facility] Office Building One 2020-04-10 2020-04-10 Outpatient IVONNE, [facility] [id number] 00:00:00 00:00:00 MAHSA [address] 2020-02-06 2020-02-06 Outpatient IVONNE, [facility] [id number] 00:00:00 00:00:00 MAHSA 388 Method i 2019-12-22 2019-12-22 Outpatient IVONNE, [facility] [id number] 00:00:00 00:00:00 MA[facility]SA [address] 2019-12-22 2019-12-22 Outpatient IVONNE [facility] [id number] 00:00:00 00:00:00 MAHSA [address] 2019-12-22 2019-12-22 Outpatient IVONNE [facility] [id number] 00:00:00 00:00:00 MAHSA [address] Results Test Description Test Time Test Comments Results Result Comments Source POCT HEMOGLOBIN A1C TEST 2021-09-10 17:47:00 Test Item Value Reference Range Interpretation Comme nts POCT HBA1C (test code = 4548-4) 9.1 % 4-6 A Lab Interpretation (test code = 47782-1) Abnormal [facility]
[2021-10-23] MEDS ORDERED: ONDANSETRON 4 MG/2 ML VIAL ONE (22:22)
[2021-10-23] MEDS ORDERED: NA CHLORIDE 0.9% 500 ML ONE ×2 (22:22→22:23)
[2021-10-23] MEDS ORDERED: MORPHINE 4 MG/ML SYR ONE (22:22)
[2021-10-23] MEDS ORDERED: LABETALOL 20 MG/4ML SYRINGE IV ONE (22:23)
[2021-10-23 22:25] LABS: Urine Blood Negative (Negative); Urine Glucose Negative (Negative); Urine Protein Negative (Negative); Urine pH 6.5 (5.0-7.0)
[2021-10-23 22:29] LABS: Absolute Lymphocytes (CBC) 5.6 K/uL (0.7-4.9); Hematocrit 41.3 % (36.0-45.0); MPV 9.6 fL (7.6-11.3); RBC Red Blood Cell Count 4.66 M/uL (3.86-4.86)
[2021-10-23 22:41] LABS: BUN Blood Urea Nitrogen 12 mg/dL (7-18); Bicarbonate 29 mmol/L (21-32); Glucose Level 166 mg/dL (74-106); Potassium 3.7 mmol/L (3.5-5.1); Sodium Level 139 mmol/L (136-145)
--- NOTE | 2021-10-23 23:55 | ER ---
Nurse's Notes [facility] Name: Rosa Crow Age: 56 yrs Sex: Female : 1965 Arrival Date: 10/23/2021 Time: 17:51 Bed 20 Private MD: Diagnosis: Uncontrolled hypertension. Right mid back pain. Liver pathology Presentation: 10/23 18:49 Chief complaint: Patient states: for about 2 weeks has been having lower back pain and vg1 h/a. Was told by PCP to come to ED to be evaluated. States has BP meds but BP has been high x 1 week even with medication. Coronavirus screen: Vaccine status: Patient reports receiving the 2nd dose of the covid vaccine. Client denies travel out of the [place] in the last 14 days. Ebola Screen: Patient negative for fever greater than or equal to 101.5 degrees Fahrenheit, and additional compatible Ebola Virus Disease symptoms. Initial Sepsis Screen: Does the patient meet any 2 criteria? No. Patient's initial sepsis screen is negative. Does the patient have a suspected source of infection? No. Patient's initial sepsis screen is negative. Risk Assessment: Do you want to hurt yourself or someone else? Patient reports no desire to harm self or others. Onset of symptoms was October 09, 2021. 18:49 Method Of Arrival: Ambulatory vg1 18:49 Acuity: KATARINA 2 vg1 Triage Assessment: 18:55 Headache History: The patient has had previous headaches and this one is similar to vg1 previous episodes. General: Appears in no apparent distress. uncomfortable, Behavior is calm, cooperative. Pain: Complains of pain in head and lower back Pain currently is 8 out of 10 on a pain scale. Pain began x 2 weeks. Neuro: Level of Consciousness is awake, alert, obeys commands, Oriented to person, place, time, situation, Reports headache Denies blurred vision dizziness, photophobia. 18:55 Cardiovascular: Denies chest pain. vg1 Historical: - Allergies: 18:55 No Known Allergies; vg1 - Home Meds: 18:55 aspirin 81 mg Oral chew 1 tab once daily [Active]; carvedilol 25 mg Oral tab 1 tab 2 vg1 times per day [Active]; lisinopril 20 mg Oral tab 1 tab once daily [Active]; metformin 750 mg Oral Tb24 1 tab twice a day [Active]; Novolog Sub-Q 25 unit daily [Active]; Tresiba FlexTouch U-100 100 unit/mL (3 mL) subcutaneous inpn 80 units every morning [Active]; simvastatin 20 mg Oral tab nightly [Active]; pantoprazole 40 mg Oral TbEC 1 tab once daily [Active]; cetirizine 10 mg Oral tab 1 tab once daily [Active]; montelukast 10 mg Oral tab 1 tab once daily [Active]; - PMHx: 18:55 Diabetes - IDDM; early alzheimers; Hypertension; Myocardial infarction; syndrome x; vg1 - Immunization history:: Client reports receiving the 2nd dose of the Covid vaccine. - Social history:: Smoking status: Patient denies any tobacco usage or history of. Vital Signs: 18:49 BP 189 / 93; Pulse 79; Resp 16; Temp 98.1; Pulse Ox 98% ; Weight 77.11 kg; Height 5 ft. vg1 0 in. (152.40 cm); Pain 8/10; 18:49 Body Mass Index 33.20 (77.11 kg, 152.40 cm) vg1 ED Course: 17:51 Patient arrived in ED. as 18:55 Triage completed. vg1 18:55 Arm band placed on. vg1 21:42 Fernando Moran MD is Attending Physician. pkl 21:49 Donald Roberts, MIKE is Primary Nurse. mr2 Administered Medications: 22:30 Drug: NS 0.9% 500 ml Route: IV; Rate: bolus; Site: left antecubital; mr2 22:30 Drug: morphine 4 mg Route: IVP; Site: left antecubital; mr2 22:30 Drug: Zofran (Ondansetron) 4 mg Route: IVP; Site: left antecubital; mr2 22:30 Drug: Labetalol 20 mg Route: IVP; Infused Over: 2 mins; Site: left antecubital; mr2 10/24 00:10 Drug: cloNIDine 0.1 mg Route: PO; mr2 Outcome: 10/23 23:54 Discharge ordered by . pkl 10/24 00:55 Patient left the ED. lt3 Signatures: Fernando Moran MD MD pkFarzana Anthony Victoria, RN RN vg1 Donald Roberts RN RN mr2 Omer, Hannah lt3 Corrections: (The following items were deleted from the chart) 10/23 18 18:55 Home Meds: Creon 36,000-114,000- 180,000 unit Oral cpDR 1 cap 3 times per day; vg1vg1 18:55 Home Meds: Levemir 40 units subcutaneous; vg1 vg1 18:55 Home Meds: Premarin 1.25 mg Oral tab 1 tab once daily; vg1 vg1 18:55 Home Meds: metoprolol tartrate 50 mg Oral tab; vg1 vg1 18:49 Acuity: KATARINA 3 vg1 vg1
--- NOTE | 2021-10-23 23:55 | EDPHYS ---
Physician Documentation [facility] Name: Rosa Crow Age: 56 yrs Sex: Female : 1965 Arrival Date: 10/23/2021 Time: 17:51 Bed 20 Private MD: ED Physician Fernando Moran HPI: 10/23 23:37 This 56 yrs old Female presents to ER via Ambulatory with complaints of High pkl Blood Pressure, Headache, Low Back Pain. 23:37 The patient has elevated blood pressure and discovered this at home, with a home pkl device. Onset: The symptoms/episode began/occurred 1 week(s) ago. Associated signs and symptoms: Pertinent positives: headache, Pain right mid back. Patient was seen in this ER 5 days ago for same complaints. Was told to get MRI abdomen for further evaluations. Has appt. with PCP tomorrow to get MRI done. Patient said BP remained high. Historical: - Allergies: 18:55 No Known Allergies; vg1 - Home Meds: 18:55 aspirin 81 mg Oral chew 1 tab once daily [Active]; carvedilol 25 mg Oral tab 1 tab 2 vg1 times per day [Active]; lisinopril 20 mg Oral tab 1 tab once daily [Active]; metformin 750 mg Oral Tb24 1 tab twice a day [Active]; Novolog Sub-Q 25 unit daily [Active]; Tresiba FlexTouch U-100 100 unit/mL (3 mL) subcutaneous inpn 80 units every morning [Active]; simvastatin 20 mg Oral tab nightly [Active]; pantoprazole 40 mg Oral TbEC 1 tab once daily [Active]; cetirizine 10 mg Oral tab 1 tab once daily [Active]; montelukast 10 mg Oral tab 1 tab once daily [Active]; - PMHx: 18:55 Diabetes - IDDM; early alzheimers; Hypertension; Myocardial infarction; syndrome x; vg1 - Immunization history:: Client reports receiving the 2nd dose of the Covid vaccine. - Social history:: Smoking status: Patient denies any tobacco usage or history of. ROS: 23:37 Eyes: Negative for injury, pain, redness, and discharge, ENT: Negative for injury, pkl pain, and discharge, Neck: Negative for injury, pain, and swelling, Cardiovascular: Negative for chest pain, palpitations, and edema, Respiratory: Negative for shortness of breath, cough, wheezing, and pleuritic chest pain. 23:37 Abdomen/GI: Negative for abdominal pain, nausea, vomiting, and diarrhea. 23:37 Back: Positive for pain at rest, of the right mid back. 23:37 : Negative for urinary symptoms. 23:37 MS/extremity: Negative for acute changes. 23:37 Skin: Negative for rash. 23:37 Neuro: Negative for altered mental status, loss of consciousness. Exam: 23:37 Head/Face: Normocephalic, atraumatic. Eyes: Pupils equal round and reactive to light, pkl extra-ocular motions intact. Lids and lashes normal. Conjunctiva and sclera are non-icteric and not injected. Cornea within normal limits. Periorbital areas with no swelling, redness, or edema. ENT: Nares patent. No nasal discharge, no septal abnormalities noted. Tympanic membranes are normal and external auditory canals are clear. Oropharynx with no redness, swelling, or masses, exudates, or evidence of obstruction, uvula midline. Mucous membranes moist. Neck: Trachea midline, no thyromegaly or masses palpated, and no cervical lymphadenopathy. Supple, full range of motion without nuchal rigidity, or vertebral point tenderness. No Meningismus. Chest/axilla: Normal chest wall appearance and motion. Nontender with no deformity. No lesions are appreciated. Cardiovascular: Regular rate and rhythm with a normal S1 and S2. No gallops, murmurs, or rubs. Normal PMI, no JVD. No pulse deficits. Respiratory: Lungs have equal breath sounds bilaterally, clear to auscultation and percussion. No rales, rhonchi or wheezes noted. No increased work of breathing, no retractions or nasal flaring. 23:37 Abdomen/GI: Bowel sounds: normal, Palpation: abdomen is soft and non-tender, in all quadrants. 23:37 Back: pain, that is moderate, of the right mid back. 23:37 : Exam negative for acute changes. 23:37 Musculoskeletal/extremity: Exam is negative for acute changes. 23:37 Skin: Exam negative for rash. 23:37 Neuro: Orientation: is normal, Mentation: is normal, Cranial nerves: grossly normal, Motor: is normal. Vital Signs: 18:49 BP 189 / 93; Pulse 79; Resp 16; Temp 98.1; Pulse Ox 98% ; Weight 77.11 kg; Height 5 ft. vg1 0 in. (152.40 cm); Pain 8/10; 18:49 Body Mass Index 33.20 (77.11 kg, 152.40 cm) vg1 MDM: 21:42 Patient medically screened. pkl 23:37 Data reviewed: vital signs, nurses notes, lab test result(s). ED course: Discussed lab pkl results with patient. Advised to keep appointment with PCP AM. TO return if necessary. Patient understood instruction. 10/23 22:00 Order name: CBC with Diff; Complete Time: 23:11 pkl 10/23 22:00 Order name: Chem 7; Complete Time: 23:11 pkl 10/23 22:25 Order name: Urine Dipstick-Ancillary; Complete Time: 23:11 EDMS 10/23 22:28 Order name: Urine --Ancillary (enter results); Complete Time: 23:11 cs9 10/23 22:00 Order name: Urine Dipstick-Ancillary (obtain specimen); Complete Time: 22:28 pkl Administered Medications: 22:30 Drug: NS 0.9% 500 ml Route: IV; Rate: bolus; Site: left antecubital; mr2 22:30 Drug: morphine 4 mg Route: IVP; Site: left antecubital; mr2 22:30 Drug: Zofran (Ondansetron) 4 mg Route: IVP; Site: left antecubital; mr2 22:30 Drug: Labetalol 20 mg Route: IVP; Infused Over: 2 mins; Site: left antecubital; mr2 10/24 00:10 Drug: cloNIDine 0.1 mg Route: PO; mr2 Disposition Summary: 10/23/21 23:54 Discharge Ordered Location: Home pkl Problem: new pkl Symptoms: have improved pkl Condition: Stable pkl Diagnosis - Uncontrolled hypertension. Right mid back pain. Liver pathology pkl Followup: pkl - With: Private Physician - When: Tomorrow - Reason: Re-evaluation by your physician Discharge Instructions: - Discharge Summary Sheet pkl Forms: - Medication Reconciliation Form pkl - Thank You Letter pkl - Antibiotic Education pkl - Prescription Opioid Use pkl Prescriptions: - clonidine HCl 0.1 mg Oral tablet - take 1 tablet by ORAL route once daily As needed; 30 tablet; Refills: 0, pkl Product Selection Permitted Signatures: Dispatcher [employer] EDFernando Dorman MD MD pkGabi Parker RN RN vg1 Donald Roberts RN RN mr2 Corrections: (The following items were deleted from the chart) 10/23 18:57 18:55 Home Meds: Creon 36,000-114,000- 180,000 unit Oral cpDR 1 cap 3 times per day; vg1vg1 18:55 Home Meds: Levemir 40 units subcutaneous; vg1 vg1 : 18:55 Home Meds: Premarin 1.25 mg Oral tab 1 tab once daily; vg1 vg1 18: 18:55 Home Meds: metoprolol tartrate 50 mg Oral tab; vg1 vg1
[2021-10-24] MEDS ORDERED: cloNIDine HCL 0.1 MG TAB ONE (00:01)
[2021-10-24 01:32] VITALS: BP 189/93; TEMP 98.1; O2SAT 98
== END 2021-10-24 00:55 | disposition home or self-care (01) ==
LOC: ER 17:49
DX: I10 Essential (primary) hypertension (principal); E11.9 Type 2 diabetes mellitus without complications; M54.9 Dorsalgia, unspecified
CPT/HCPCS: 85025; 80048; 36415; 81025; 81003; 96375; 96374; 99282; J7040 ×2; J2405

== ENCOUNTER 2023-04-15 07:24 | Emergency (ER) | payer BC ==
--- OUTSIDE RECORDS SUMMARY | 2023-04-15 07:30 | XMS REPORT | Continuity of Care Document ---
:1965 Author Organization [facility] t Address [address] [place] [address] Care Team Providers Name Role Phone Stu Ayon Primary Care Physician Stu Ayon Attending Clinician Unavailable Eden Merida Attending Clinician Unavailable MEGAN ASKEW Attending Clinician Unavailable BRIAN CHARLES Attending Clinician Unavailable Jesus Manuel Lopez MD Attending Clinician JESUS MANUEL LOPEZ Attending Clinician Unavailable Anthony Aguiar MD Attending Clinician NNEKA GERMAN Attending Clinician Unavailable Nneka German MD Attending Clinician Doctor Unassigned, [place] Attending Clinician Unavailable Lexi Elias Attending Clinician LEXI ALEMAN Attending Clinician Unavailable EMIL SINGLETON Attending Clinician Unavailable Emil So Attending Clinician ANTHONY AGUIAR Attending Clinician Unavailable Jose Fischer Attending Clinician MAHSA CORONADO Attending Clinician Unavailable Lab, Adc Fam Pob I Attending Clinician Unavailable Annelise Treadwellthia Attending Clinician NNEKA GERMAN Admitting Clinician Unavailable Payers Payer Name Policy Type Policy Number Effective Date Expiration Date S ource Problems Condition Condition Condition Status Onset Resolution Last Treating Co mments Source Name Details Category Date Date Treatment Clinician Date Abdominal Abdominal Disease Active Uni vers pain pain 1-04 ity of 00:00: [place] [facility] Obesity Obesity Disease Active Univers (BMI (BMI 7-09 ity of 30-39.9) 30-39.9) 00:00: Medical Branch Type 1 Type 1 Disease Active Univers diabetes diabetes 6-10 ity of mellitus mellitus 00:00: Medical Branch Neuropathy Neuropathy Disease Active U nivers 6-10 ity of 00:00: [place] [facility] Essential Essential Disease Active Uni vers hypertensi hypertensi 6-10 it y of on on 00:00: Medical Branch UTI (lower UTI (lower Disease Active U nivers urinary urinary 3-04 ity of tract tract 00:00: [place] infection) infection) 00 Me dical Branch 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 Pancreas divisumIC D10 Diagnosis Term [employer] Technician Utility Essential Essential Disease Active Overview: Univers hypertensi hypertensi 3-11 Formattin ity of on on 00:00: g of this [place] 00 note Medical might be Branch different from the original. 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 ICD10 Diagnosis Term [employer] Technician Utility Cervical Cervical Problem Active 2020-11-04 [facility] radiculopa radiculopa 22:17:46 l thy thy Carrie (disorder) (disorder) Active Problem 11/04/2020 [facility] Hypertensi Hypertens Problem Active 2020-11-04 [facility] ve petra 22:17:46 l disorder, disorder, Herm vincenzo systemic systemic arterial arterial (disorder) (disorder) Active Problem 11/04/2020 [facility] Lumbar Lumbar Problem Active 2020-11-04 Mem oria radiculopa radiculopa 22:17:46 l thy thy Carrie (disorder) (disorder) Active Problem 11/04/2020 [facility] Neck pain Neck pain Problem Active 2020-11-04 [facility]oria (finding) (finding) 22:17:46 l Active [place] Problem 11/04/2020 [facility] Paresthesi Paresthes Problem Active 2020-11-04 Memoria a ia 22:17:46 l (finding) (finding) Herm vincenzo Active Problem 11/04/2020 [facility] 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 (disorder) (disorder) Active Problem 11/04/2020 [facility] Peripheral Periphera Problem Active 2020-11-04 [facility] nerve l nerve 22:17:46 l disease disease Tom (disorder) (disorder) Active Problem 11/04/2020 [facility] Simple Simple Problem Active 2020-11-04 Brian alba obesity obesity 22:17:46 l (disorder) (disorder) He rmann Active Problem 11/04/2020 [facility] Allergies, Adverse Reactions, Alerts Allergy Allergy Status Severity Reaction(s) Onset Inactive Treating Comm ents Source Name Type Date Date Clinician Amoxicil Propensi Active Hives Red, Univer s caitie-Pot ty to 2-05 swelling ity of Clavulan adverse 00:00: in face [place] ate reaction 00 Medical s Branch AMOXICIL DRUG Active Hives Univers CAITIE-POT 2-05 ity of CLAVULAN 00:00: [place] ATE 00 Medical Branch No Known No Known Active Memori a Medicati Medicati l on on Carrie Allergie Allergie s s Social History Social Habit Start Date Stop Date Quantity Comments Source Exposure to 2022-09-30 2022-10-10 Not sure [facility] SARS-CoV-2 00:00:00 07:51:00 [facility] (event) Branch Alcohol intake 2022-10-10 2022-10-10 Current University of 00:00:00 00:00:00 non-drinker of [facility] alcohol (finding) Branch Tobacco use and 2022-10-10 2022-10-10 Smokeless tobacco Un iversity of exposure 00:00:00 00:00:00 non-user [facility] Social History 2018-12-21 2018-12-21 [facility] 21:28:55 21:28:55 Sex Ass[birth year] At [birth year] F ANDERSON [place] 00:00:00 [facility] Smoking Status Start Date Stop Date Source Never smoked tobacco [facility] Medications Ordered Filled Start Stop Current Ordering Indication Dosage Frequency Signature Comments Components Source Medication Medication Date Date Medication? Clinician (SIG) Name Name iopamidol 2021- No [id number] 75mL 75 mL, U nivers (ISOVUE 05-12 Intravenou ity o f 370-500 mL) 16:45: 16:37 s, ONCE, 1 [place] injection 00 :00 dose, On Medica l 75 mL Mon Branch 05/12/22 at 1145, Routine aspirin 2021- No 325mg 325 mg, Unive rs tablet 325 05-12 Oral, ity of mg 16:30: 15:45 ONCE, 1 [place] 00 :00 dose, On Medical Mon Branch 05/12/22 at 1130, STAT codeine-gua 2021- No 10mL 10 mL, Uni vers ifenesin 05-1218 Oral, ity of (ROBITUSSIN 16:15: 16:43 ONCE, 1 [place]) 10-100 00 :00 dose, On Medic al mg/5 mL Mon Branch oral 05/12/22 at solution 10 1115, NORMA mL aspirin 81 Yes 81mg Take 81 mg U nivers mg tablet 7-18 by mouth ity of 10:54: daily. [address] simvastatin Yes 20mg Take 20 mg Univers (ZOCOR) 20 7-18 by mouth ity o f mg tablet 10:54: at [place] [address] bedtime[address] [facility] pantoprazol Yes 40mg Take 40 mg Univers e 40 mg EC 7-18 by mouth ity o f tablet 10:54: daily. [address] aspirin 81 Yes 81mg Take 81 mg U nivers mg tablet 7-18 by mouth ity of 10:54: daily. [address] simvastatin Yes 20mg Take 20 mg Univers (ZOCOR) 20 7-18 by mouth ity o f mg tablet 10:54: at [place] [address] bedtime. [facility] pantoprazol Yes 40mg Take 40 mg Univers e 40 mg EC 7-18 by mouth ity o f tablet 10:54: daily. [address] aspirin 81 0 Yes 81mg Take 81 mg U nivers mg tablet 7-18 by mouth ity of 10:54: daily. [address] simvastatin Yes 20mg Take 20 mg Univers (ZOCOR) 20 7-18 by mouth ity o f mg tablet 10:54: at [place] [address] bedtime. [facility] pantoprazol Yes 40mg Take 40 mg Univers e 40 mg EC 7-18 by mouth ity o f tablet 10:54: daily. [address] aspirin 81 0 Yes 81mg Take 81 mg U nivers mg tablet 7-18 by mouth ity of 10:54: daily. [address] simvastatin Yes 20mg Take 20 mg Univers (ZOCOR) 20 7-18 by mouth ity o f mg tablet 10:54: at [place] [address] bedtime. Medical [place] pantoprazol 0 Yes 40mg Take 40 mg Univers e 40 mg EC 7-18 by mouth ity o f tablet 10:54: daily. [address] Branch aspirin 81 0 Yes 81mg Take 81 mg U nivers mg tablet 7-18 by mouth ity of 10:54: daily. [address] simvastatin Yes 20mg Take 20 mg Univers (ZOCOR) 20 7-18 by mouth ity o f mg tablet 10:54: at [place] [address] bedtime. [facility] pantoprazol 0 Yes 40mg Take 40 mg Univers e 40 mg EC 7-18 by mouth ity o f tablet 10:54: daily. [address] aspirin 81 0 Yes 81mg Take 81 mg U nivers mg tablet 7-18 by mouth ity of 10:54: daily. [address] simvastatin Yes 20mg Take 20 mg Univers (ZOCOR) 20 7-18 by mouth ity o f mg tablet 10:54: at [place] [address] bedtime. [facility] pantoprazol Yes 40mg Take 40 mg Univers e 40 mg EC 7-18 by mouth ity o f tablet 10:54: daily. [address] aspirin 81 0 Yes 81mg Take 81 mg U nivers mg tablet 7-18 by mouth ity of 10:54: daily. [address] simvastatin 0 Yes 20mg Take 20 mg Univers (ZOCOR) 20 7-18 by mouth ity o f mg tablet 10:54: at [place] [address] bedtime. [facility] pantoprazol 0 Yes 40mg Take 40 mg Univers e 40 mg EC 7-18 by mouth ity o f tablet 10:54: daily. [address] aspirin 81 0 Yes 81mg Take 81 mg U nivers mg tablet 7-18 by mouth ity of 10:54: daily. [address] simvastatin 0 Yes 20mg Take 20 mg Univers (ZOCOR) 20 7-18 by mouth ity o f mg tablet 10:54: at [place] [address] bedtime. [facility] pantoprazol 0 Yes 40mg Take 40 mg Univers e 40 mg EC 7-18 by mouth ity o f tablet 10:54: daily. [address] aspirin 81 2022-0 Yes 81mg Take 81 mg U nivers mg tablet 7-18 by mouth ity of 10:54: daily. [place] [address] Medical Branch simvastatin Yes 20mg Take 20 mg Univers (ZOCOR) 20 7-18 by mouth ity o f mg tablet 10:54: at [place] [address] bedtime. Medical Branch pantoprazol Yes 40mg Take 40 mg Univers e 40 mg EC 7-18 by mouth ity o f tablet 10:54: daily. [place] [address] Medical Branch albuterol Yes [id number] 2{puff} Inhale 2 Univers 90 7-18 Puffs ity of mcg/actuati 00:00: every 4 [place] as on inhaler 00 (four) Medical hours as Branch needed for Wheezing or Shortness of Breath. ondansetron Yes [id number] 1 or 2 Univers 4 mg tablet 7-18 tablets ity o f 00:00: every 6 [place] 00 hours as Medical needed for Branch nausea albuterol Yes [id number] 2{puff} Inhale 2 Univers 90 7-18 Puffs ity of mcg/actuati 00:00: every 4 [place] on inhaler 00 (four) Medical hours as Branch needed for Wheezing or Shortness of Breath. ondansetron Yes [id number] 1 or 2 Univers 4 mg tablet 7-18 tablets ity o f 00:00: every 6 [place] 00 hours as Medical needed for Branch nausea albuterol Yes [id number] 2{puff} Inhale 2 Univers 90 7-18 Puffs ity of mcg/actuati 00:00: every 4 [place] on inhaler 00 (four) Medical hours as Branch needed for Wheezing or Shortness of Breath. ondansetron Yes [id number] 1 or 2 Univers 4 mg tablet 7-18 tablets ity o f 00:00: every 6 [place] 00 hours as Medical needed for Branch nausea albuterol Yes [id number] 2{puff} Inhale 2 Univers 90 7-18 Puffs ity of mcg/actuati 00:00: every 4 [place] on inhaler 00 (four) Medical hours as Branch needed for Wheezing or Shortness of Breath. ondansetron Yes [id number] 1 or 2 Univers 4 mg tablet 7-18 tablets ity o f 00:00: every 6 [place] 00 hours as Medical needed for Branch nausea albuterol Yes [id number] 2{puff} Inhale 2 Univers 90 7-18 Puffs ity of mcg/actuati 00:00: every 4 [place] on inhaler 00 (four) Medical hours as Branch needed for Wheezing or Shortness of Breath. ondansetron Yes [id number] 1 or 2 Univers 4 mg tablet 7-18 tablets ity o f 00:00: every 6 [place] 00 hours as Medical needed for Branch nausea albuterol Yes [id number] 2{puff} Inhale 2 Univers 90 7-18 Puffs ity of mcg/actuati 00:00: every 4 [place] on inhaler 00 (four) Medical hours as Branch needed for Wheezing or Shortness of Breath. ondansetron Yes [id number] 1 or 2 Univers 4 mg tablet 7-18 tablets ity o f 00:00: every 6 [place] 00 hours as Medical needed for Branch nausea albuterol Yes [id number] 2{puff} Inhale 2 Univers 90 7-18 Puffs ity of mcg/actuati 00:00: every 4 [place] on inhaler 00 (four) Medical hours as Branch needed for Wheezing or Shortness of Breath. ondansetron Yes [id number] 1 or 2 Univers 4 mg tablet 7-18 tablets ity o f 00:00: every 6 [place] 00 hours as Medical needed for Branch nausea albuterol Yes [id number] 2{puff} Inhale 2 Univers 90 7-18 Puffs ity of mcg/actuati 00:00: every 4 [place] on inhaler 00 (four) Medical hours as Branch needed for Wheezing or Shortness of Breath. ondansetron Yes [id number] 1 or 2 Univers 4 mg tablet 7-18 tablets ity o f 00:00: every 6 [place] 00 hours as Medical needed for Branch nausea albuterol Yes [id number] 2{puff} Inhale 2 Univers 90 7-18 Puffs ity of mcg/actuati 00:00: every 4 [place] on inhaler 00 (four) Medical hours as Branch needed for Wheezing or Shortness of Breath. ondansetron Yes [id number] 1 or 2 Univers 4 mg tablet 7-18 tablets ity o f 00:00: every 6 [place] 00 hours as Medical needed for Branch nausea codeine-gua 0 2022- No 10mL Take 10 mL Univers ifenesin 7-18 07-26 by mouth ity of 10-100 mg/5 00:00: 04:59 every 6 [place] mL oral 00 :00 (six) Medical solution hours as Branch needed for Cough for up to 7 days. Indication s: cough Insulin Yes Levemir Univers Detemir 7-04 FlexTouch ity of (LEVEMIR 12:31: U-100 [place] FLEXTOUCH 56 Insulin Medical U-100 100 Branch INSULN) 100 unit/mL (3 unit/mL (3 mL) mL) subcutaneo injection us pen lipase-prot Yes 2{capsu Take 2 U nivers ease-amylas 7-04 le} capsules ity of e 12:31: by mouth. [place] 36,000-114, 56 Medical 000- Branch 180,000 unit CpDR LORazepam Yes lorazepam Uni vers 0.5 mg 7-04 0.5 mg ity of tablet 12:31: tablet [place] [address] TAKE 1 Medical TABLET BY Branch MOUTH 1 HOUR PRIOR TO MRI, MAY REPEAT IN 15 MINUTES IF STILL ANXIOUS meclizine Yes meclizine Uni vers 25 mg 7-04 25 mg ity of tablet 12:31: tablet [place] 56 Medical Branch Insulin Yes Levemir Univers Detemir 7-04 FlexTouch ity of (LEVEMIR 12:31: U-100 [place] FLEXTOUCH 56 Insulin Medical U-100 100 Branch INSULN) 100 unit/mL (3 unit/mL (3 mL) mL) subcutaneo injection us pen lipase-prot 0 Yes 2{capsu Take 2 U nivers ease-amylas 7-04 le} capsules ity of e 12:31: by mouth. [place] 36,000-114, 56 Medical 000- Branch 180,000 unit CpDR LORazepam Yes lorazepam Uni vers 0.5 mg 7-04 0.5 mg ity of tablet 12:31: tablet [place] [address] TAKE 1 Medical TABLET BY Branch MOUTH 1 HOUR PRIOR TO MRI, MAY REPEAT IN 15 MINUTES IF STILL ANXIOUS meclizine 2021-0 Yes meclizine Uni vers 25 mg 7-04 25 mg ity of tablet 12:31: tablet [address] Branch Insulin 2021-0 Yes Levemir Univers Detemir 7-04 FlexTouch ity of (LEVEMIR 12:31: U-100 [place] FLEXTOUCH 56 Insulin Medical U-100 100 Branch INSULN) 100 unit/mL (3 unit/mL (3 mL) mL) subcutaneo injection us pen lipase-prot 2021-0 Yes 2{capsu Take 2 U nivers ease-amylas 7-04 le} capsules ity of e 12:31: by mouth. [place] 36,000-114, 56 Medical 000- Branch 180,000 unit CpDR LORazepam 2021-0 Yes lorazepam Uni vers 0.5 mg 7-04 0.5 mg ity of tablet 12:31: tablet [place] [address] TAKE 1 Medical TABLET BY Branch MOUTH 1 HOUR PRIOR TO MRI, MAY REPEAT IN 15 MINUTES IF STILL ANXIOUS meclizine 2021-0 Yes meclizine Uni vers 25 mg 7-04 25 mg ity of tablet 12:31: tablet [address] Insulin 0 Yes Levemir Univers Detemir 7-04 FlexTouch ity of (LEVEMIR 12:31: U-100 [place] FLEXTOUCH 56 Insulin Medical U-100 100 Branch INSULN) 100 unit/mL (3 unit/mL (3 mL) mL) subcutaneo injection us pen lipase-prot 2021-0 Yes 2{capsu Take 2 U nivers ease-amylas 7-04 le} capsules ity of e 12:31: by mouth. [place] 36,000-114, 56 Medical 000- Branch 180,000 unit CpDR LORazepam 2021-0 Yes lorazepam Uni vers 0.5 mg 7-04 0.5 mg ity of tablet 12:31: tablet [place] [address] TAKE 1 Medical TABLET BY Branch MOUTH 1 HOUR PRIOR TO MRI, MAY REPEAT IN 15 MINUTES IF STILL ANXIOUS meclizine 2022-0 Yes meclizine Uni vers 25 mg 7-04 25 mg ity of tablet 12:31: tablet [address] Branch Insulin 2021-0 Yes Levemir Univers Detemir 7-04 FlexTouch ity of (LEVEMIR 12:31: U-100 [place] FLEXTOUCH 56 Insulin Medical U-100 100 Branch INSULN) 100 unit/mL (3 unit/mL (3 mL) mL) subcutaneo injection us pen lipase-prot 2021-0 Yes 2{capsu Take 2 U nivers ease-amylas 7-04 le} capsules ity of e 12:31: by mouth. [place] 36,000-114, 56 Medical 000- Branch 180,000 unit CpDR LORazepam 2021-0 Yes lorazepam Uni vers 0.5 mg 7-04 0.5 mg ity of tablet 12:31: tablet [place] 56 TAKE 1 Medical TABLET BY Branch MOUTH 1 HOUR PRIOR TO MRI, MAY REPEAT IN 15 MINUTES IF STILL ANXIOUS meclizine 2021-0 Yes meclizine Uni vers 25 mg 7-04 25 mg ity of tablet 12:31: tablet [place] [address] Medical Branch Insulin 2021-0 Yes Levemir Univers Detemir 7-04 FlexTouch ity of (LEVEMIR 12:31: U-100 [place] FLEXTOUCH 56 Insulin Medical U-100 100 Branch INSULN) 100 unit/mL (3 unit/mL (3 mL) mL) subcutaneo injection us pen lipase-prot 2021-0 Yes 2{capsu Take 2 U nivers ease-amylas 7-04 le} capsules ity of e 12:31: by mouth. [place] 36,000-114, 56 Medical 000- Branch 180,000 unit CpDR LORazepam 2021-0 Yes lorazepam Uni vers 0.5 mg 7-04 0.5 mg ity of tablet 12:31: tablet [place] [address] TAKE 1 Medical TABLET BY Branch MOUTH 1 HOUR PRIOR TO MRI, MAY REPEAT IN 15 MINUTES IF STILL ANXIOUS meclizine 2022-0 Yes meclizine Uni vers 25 mg 7-04 25 mg ity of tablet 12:31: tablet [place] 56 Medical Branch Insulin 2-0 Yes Levemir Univers Detemir 7-04 FlexTouch ity of (LEVEMIR 12:31: U-100 [place] FLEXTOUCH 56 Insulin Medical U-100 100 Branch INSULN) 100 unit/mL (3 unit/mL (3 mL) mL) subcutaneo injection us pen lipase-prot 2022-0 Yes 2{capsu Take 2 U nivers ease-amylas 7-04 le} capsules ity of e 12:31: by mouth. [place] 36,000-114, 56 Medical 000- Branch 180,000 unit CpDR LORazepam 2021-0 Yes lorazepam Uni vers 0.5 mg 7-04 0.5 mg ity of tablet 12:31: tablet [place] 56 TAKE 1 Medical TABLET BY Branch MOUTH 1 HOUR PRIOR TO MRI, MAY REPEAT IN 15 MINUTES IF STILL ANXIOUS meclizine 2021-0 Yes meclizine Uni vers 25 mg 7-04 25 mg ity of tablet 12:31: tablet [place] [address] Medical Branch Insulin 2021-0 Yes Levemir [facility] Detemir 7-04 FlexTouch ity of (LEVEMIR 12:31: U-100 [place] FLEXTOUCH 56 Insulin Medical U-100 100 Branch INSULN) 100 unit/mL (3 unit/mL (3 mL) mL) subcutaneo injection us pen lipase-prot 0 Yes 2{capsu Take 2 U nivers ease-amylas 7-04 le} capsules ity of e 12:31: by mouth. [place] 36,000-114, 56 Medical 000- Branch 180,000 unit CpDR LORazepam 2021-0 Yes lorazepam Uni vers 0.5 mg 7-04 0.5 mg ity of tablet 12:31: tablet [place] [address] TAKE 1 Medical TABLET BY Branch MOUTH 1 HOUR PRIOR TO MRI, MAY REPEAT IN 15 MINUTES IF STILL ANXIOUS meclizine 2-0 Yes meclizine Uni vers 25 mg 7-04 25 mg ity of tablet 12:31: tablet [place] [address] Medical Branch Insulin 2021-0 Yes Levemir [facility] Detemir 7-04 FlexTouch ity of (LEVEMIR 12:31: U-100 [place] FLEXTOUCH 56 Insulin Medical U-100 100 Branch INSULN) 100 unit/mL (3 unit/mL (3 mL) mL) subcutaneo injection us pen lipase-prot 2021-0 Yes 2{capsu Take 2 U nivers ease-amylas 7-04 le} capsules ity of e 12:31: by mouth. [place] 36,000-114, 56 Medical 000- Branch 180,000 unit CpDR LORazepam 2021-0 Yes lorazepam Uni vers 0.5 mg 7-04 0.5 mg ity of tablet 12:31: tablet [place] [address] TAKE 1 Medical TABLET BY Branch MOUTH 1 HOUR PRIOR TO MRI, MAY REPEAT IN 15 MINUTES IF STILL ANXIOUS meclizine 2021-0 Yes meclizine Uni vers 25 mg 7-04 25 mg ity of tablet 12:31: tablet [address] Insulin 2021-0 Yes Levemir [facility] Detemir 7-04 FlexTouch ity of (LEVEMIR 12:31: U-100 [place] FLEXTOUCH 56 Insulin Medical U-100 100 Branch INSULN) 100 unit/mL (3 unit/mL (3 mL) mL) subcutaneo injection us pen lipase-prot 2021-0 Yes 2{capsu Take 2 U nivers ease-amylas 7-04 le} capsules ity of e 12:31: by mouth. [place] 36,000-114, 56 Medical 000- Branch 180,000 unit CpDR LORazepam 2021-0 Yes lorazepam Uni vers 0.5 mg 7-04 0.5 mg ity of tablet 12:31: tablet [place] [address] TAKE 1 Medical TABLET BY Branch MOUTH 1 HOUR PRIOR TO MRI, MAY REPEAT IN 15 MINUTES IF STILL ANXIOUS meclizine 2021-0 Yes meclizine Uni vers 25 mg 7-04 25 mg ity of tablet 12:31: tablet [address] Insulin 0 Yes Levemir Univers Detemir 7-04 FlexTouch ity of (LEVEMIR 12:31: U-100 [place] FLEXTOUCH 56 Insulin Medical U-100 100 Branch INSULN) 100 unit/mL (3 unit/mL (3 mL) mL) subcutaneo injection us pen lipase-prot 2021-0 Yes 2{capsu Take 2 U nivers ease-amylas 7-04 le} capsules ity of e 12:31: by mouth. [place] 36,000-114, 56 Medical 000- Branch 180,000 unit CpDR LORazepam 2021-0 Yes lorazepam Uni vers 0.5 mg 7-04 0.5 mg ity of tablet 12:31: tablet [place] [address] TAKE 1 Medical TABLET BY Branch MOUTH 1 HOUR PRIOR TO MRI, MAY REPEAT IN 15 MINUTES IF STILL ANXIOUS meclizine 2021-0 Yes meclizine Uni vers 25 mg 7-04 25 mg ity of tablet 12:31: tablet [address] [facility] 2022-0 Yes acetaminop Univers en-codeine - hen 300 ity of 300-30 mg 12:31: mg-codeine [place] tablet 55 30 mg Medical tablet [facility] Yes acetaminop Univers en-codeine 04-28 hen 300 ity of 300-30 mg 12:31: mg-codeine [place] tablet 55 30 mg Medical tablet [facility] Yes acetaminop Univers en-codeine 04-28 hen 300 ity of 300-30 mg 12:31: mg-codeine [place] tablet 55 30 mg Medical tablet [facility] Yes acetaminop Univers en-codeine 04-28 hen 300 ity of 300-30 mg 12:31: mg-codeine [place] tablet 55 30 mg Medical tablet [facility] Yes acetaminop Univers en-codeine 04-28 hen 300 ity of 300-30 mg 12:31: mg-codeine [place] tablet 55 30 mg Medical tablet [facility] Yes acetaminop Univers en-codeine 04-28 hen 300 ity of 300-30 mg 12:31: mg-codeine [place] tablet 55 30 mg Medical tablet [facility] Yes acetaminop Univers en-codeine 04-28 hen 300 ity of 300-30 mg 12:31: mg-codeine [place] tablet 55 30 mg Medical tablet [facility] Yes acetaminop Univers en-codeine 04-28 hen 300 ity of 300-30 mg 12:31: mg-codeine [place] tablet 55 30 mg Medical tablet [facility] Yes acetaminop Univers en-codeine - hen 300 ity of 300-30 mg 12:31: mg-codeine [place] tablet 55 30 mg Medical tablet [facility] Yes acetaminop Univers en-codeine - hen 300 ity of 300-30 mg 12:31: mg-codeine [place] tablet 55 30 mg Medical tablet [facility] Yes acetaminop Univers en-codeine - hen 300 ity of 300-30 mg 12:31: mg-codeine [place] tablet 55 [address] [facility] Yes [id number] 800mg Take 4 Univers r 200 mg 7-04 capsules ity of capsule 00:00: by mouth [place] 00 every 12 Medical (twelve) Branch hours. molnupiravi 2021-0 Yes [id number] 800mg Take 4 Univers r 200 mg 7-04 capsules ity of capsule 00:00: by mouth [place] 00 every 12 Medical (twelve) Branch hours. molnupiravi 0 Yes [id number] 800mg Take 4 Univers r 200 mg 7-04 capsules ity of capsule 00:00: by mouth [place] 00 every 12 Medical (twelve) Branch hours. molnupiravi 0 Yes [id number] 800mg Take 4 Univers r 200 mg 7-04 capsules ity of capsule 00:00: by mouth [place] 00 every 12 Medical (twelve) Branch hours. molnupiravi 0 Yes [id number] 800mg Take 4 Univers r 200 mg 7-04 capsules ity of capsule 00:00: by mouth [place] 00 every 12 Medical (twelve) Branch hours. molnupiravi 0 Yes [id number] 800mg Take 4 Univers r 200 mg 7-04 capsules ity of capsule 00:00: by mouth [place] 00 every 12 Medical (twelve) Branch hours. molnupiravi 0 Yes [id number] 800mg Take 4 [facility] r 200 mg 7-04 capsules ity of capsule 00:00: by mouth [place] 00 every 12 Medical (twelve) Branch hours. molnupiravi 2021-0 Yes [id number] 800mg Take 4 [facility] r 200 mg 7-04 capsules ity of capsule 00:00: by mouth [place] 00 every 12 Medical (twelve) Branch hours. molnupiravi 2021-0 Yes [id number] 800mg Take 4 [facility] r 200 mg 7-04 capsules ity of capsule 00:00: by mouth [place] 00 every 12 Medical (twelve) Branch hours. molnupiravi 2021-0 Yes [id number] 800mg Take 4 [facility] r 200 mg 7-04 capsules ity of capsule 00:00: by mouth [place] 00 every 12 Medical (twelve) Branch hours. molnupiravi 2021-0 Yes [id number] 800mg Take 4 [facility] r 200 mg 7-04 capsules ity of capsule 00:00: by mouth [place] 00 every 12 Medical (twelve) Branch hours. FLOWFLEX 2021-0 Yes Univers COVID-19 AG 7-03 ity of HOME TEST 00:00: [place] Kit 00 Medical Branch FLOWFLEX 2-0 Yes [facility] COVID-19 AG 7-03 ity of HOME TEST 00:00: [place] Kit 00 Medical Branch FLOWFLEX 2-0 Yes Univers COVID-19 AG 7-03 ity of HOME TEST 00:00: [place] Kit 00 Medical Branch FLOWFLEX 2-0 Yes [facility] COVID-19 AG 7-03 ity of HOME TEST 00:00: [place] Kit 00 Medical Branch FLOWFLEX 2-0 Yes Univers COVID-19 AG 7-03 ity of HOME TEST 00:00: [place] Kit 00 Medical Branch FLOWFLEX 2021-0 Yes [facility] COVID-19 AG 7-03 ity of HOME TEST 00:00: [place] Kit 00 Medical Branch FLOWFLEX 2-0 Yes Univers COVID-19 AG 7-03 ity of HOME TEST 00:00: [place] Kit 00 Medical Branch FLOWFLEX 2021-0 Yes [facility] COVID-19 AG 7-03 ity of HOME TEST 00:00: [place] Kit 00 Medical Branch FLOWFLEX 2-0 Yes Univers COVID-19 AG 7-03 ity of HOME TEST 00:00: [place] Kit 00 Medical Branch FLOWFLEX 2-0 Yes Univers COVID-19 AG 7-03 ity of HOME TEST 00:00: [place] Kit 00 Medical Branch FLOWFLEX 2-0 Yes Univers COVID-19 AG 7-03 ity of HOME TEST 00:00: [place] Kit 00 Medical Branch losartan 2021-0 Yes 100mg Take 100 Univ ers 100 mg 6-17 mg by ity of tablet 00:00: mouth 00 daily. Medical Branch losartan 2021-0 Yes 100mg Take 100 Univ ers 100 mg 6-17 mg by ity of tablet 00:00: mouth 00 daily. Medical Branch losartan 2021-0 Yes 100mg Take 100 Univ ers 100 mg 6-17 mg by ity of tablet 00:00: mouth [place] 00 daily. Medical Branch losartan 2021-0 Yes 100mg Take 100 Univ ers 100 mg 6-17 mg by ity of tablet 00:00: mouth 00 daily. Medical Branch losartan 2021-0 Yes 100mg Take 100 Univ ers 100 mg 6-17 mg by ity of tablet 00:00: mouth [place] 00 daily. [facility] Branch losartan 2-0 Yes 100mg Take 100 Univ ers 100 mg 6-17 mg by ity of tablet 00:00: mouth [place] 00 daily. [facility] Branch losartan 2022-0 Yes 100mg Take 100 Univ ers 100 mg 6-17 mg by ity of tablet 00:00: mouth [place] 00 daily. [facility] Branch losartan 2022-0 Yes 100mg Take 100 Univ ers 100 mg 6-17 mg by ity of tablet 00:00: mouth [place] 00 daily. [facility] Branch losartan 2022-0 Yes 100mg Take 100 Univ ers 100 mg 6-17 mg by ity of tablet 00:00: mouth [place] 00 daily. [facility] losartan 2-0 Yes 100mg Take 100 Univ ers 100 mg 6-17 mg by ity of tablet 00:00: mouth [place] 00 daily. [facility] losartan 2-0 Yes 100mg Take 100 Univ ers 100 mg 6-17 mg by ity of tablet 00:00: mouth [place] 00 daily. [facility] Branch hydroCHLORO 2021-0 Yes TAKE 1 Univ ers thiazide 5-23 CAPSULE BY ity o f 12.5 mg 00:00: MOUTH [place] capsule 00 EVERY DAY Medical IN THE [place] MORNING FOR 90 DAYS hydroCHLORO 2021-0 Yes TAKE 1 Univ ers thiazide 5-23 CAPSULE BY ity o f 12.5 mg 00:00: MOUTH [place] capsule 00 EVERY DAY Medical IN THE [place] MORNING FOR 90 DAYS hydroCHLORO 2021-0 Yes TAKE 1 Univ ers thiazide 5-23 CAPSULE BY ity o f 12.5 mg 00:00: MOUTH [place] capsule 00 EVERY DAY Medical IN THE [place] MORNING FOR 90 DAYS hydroCHLORO 2021-0 Yes TAKE 1 Univ ers thiazide 5-23 CAPSULE BY ity o f 12.5 mg 00:00: MOUTH [place] capsule 00 EVERY DAY Medical IN THE [place] MORNING FOR 90 DAYS hydroCHLORO 2021-0 Yes TAKE 1 Univ ers thiazide 5-23 CAPSULE BY ity o f 12.5 mg 00:00: MOUTH [place] capsule 00 EVERY DAY Medical IN THE [place] MORNING FOR 90 DAYS hydroCHLORO 2021-0 Yes TAKE 1 Univ ers thiazide 5-23 CAPSULE BY ity o f 12.5 mg 00:00: MOUTH [place] capsule 00 EVERY DAY Medical IN THE [place] MORNING FOR 90 DAYS hydroCHLORO 2021-0 Yes TAKE 1 Univ ers thiazide 5-23 CAPSULE BY ity o f 12.5 mg 00:00: MOUTH [place] capsule 00 EVERY DAY Medical IN THE [place] MORNING FOR 90 DAYS hydroCHLORO 0 Yes TAKE 1 Univ ers thiazide 5-23 CAPSULE BY ity o f 12.5 mg 00:00: MOUTH [place] capsule 00 EVERY DAY Medical IN THE [place] MORNING FOR 90 DAYS hydroCHLORO 2021-0 Yes TAKE 1 Univ ers thiazide 5-23 CAPSULE BY ity o f 12.5 mg 00:00: MOUTH [place] capsule 00 EVERY DAY Medical IN THE [place] MORNING FOR 90 DAYS hydroCHLORO 2021-0 Yes TAKE 1 Univ ers thiazide 5-23 CAPSULE BY ity o f 12.5 mg 00:00: MOUTH [place] capsule 00 EVERY DAY Medical IN THE [place] MORNING FOR 90 DAYS hydroCHLORO 0 Yes TAKE 1 Univ ers thiazide 5-23 CAPSULE BY ity o f 12.5 mg 00:00: MOUTH [place] capsule 00 EVERY DAY Medical IN THE [place] MORNING FOR 90 DAYS azithromyci 0 Yes TAKE 2 Univ ers n 250 mg 5-02 TABLETS BY ity o f tablet 00:00: MOUTH [place] 00 TODAY, Medical THEN TAKE Branch 1 TABLET DAILY FOR 4 DAYS benzonatate 2021-0 Yes TAKE 1 Univ ers 200 mg 5-02 CAPSULE BY ity of capsule 00:00: MOUTH 3 00 TIMES A Medical DAY Branch NEEDED FOR 14 DAYS azithromyci 2021-0 Yes TAKE 2 Univ ers n 250 mg 5-02 TABLETS BY ity o f tablet 00:00: MOUTH [place] 00 TODAY, Medical THEN TAKE Branch 1 TABLET DAILY FOR 4 DAYS benzonatate 2021-0 Yes TAKE 1 Univ ers 200 mg 5-02 CAPSULE BY ity of capsule 00:00: MOUTH 3 [place] 00 TIMES A Medical DAY Branch NEEDED FOR 14 DAYS azithromyci 2021-0 Yes TAKE 2 Univ ers n 250 mg 5-02 TABLETS BY ity o f tablet 00:00: MOUTH [place] 00 TODAY, Medical THEN TAKE Branch 1 TABLET DAILY FOR 4 DAYS benzonatate 2021-0 Yes TAKE 1 Univ ers 200 mg 5-02 CAPSULE BY ity of capsule 00:00: MOUTH 3 [place] 00 TIMES A Medical DAY Branch NEEDED FOR 14 DAYS azithromyci 2021-0 Yes TAKE 2 Univ ers n 250 mg 5-02 TABLETS BY ity o f tablet 00:00: MOUTH [place] 00 TODAY, Medical THEN TAKE Branch 1 TABLET DAILY FOR 4 DAYS benzonatate Yes TAKE 1 Univ ers 200 mg 5-02 CAPSULE BY ity of capsule 00:00: MOUTH 3 TIMES A Medical DAY Branch NEEDED FOR 14 DAYS azithromyci 0 Yes TAKE 2 Univ ers n 250 mg 5-02 TABLETS BY ity o f tablet 00:00: MOUTH TODAY, Medical THEN TAKE Branch 1 TABLET DAILY FOR 4 DAYS benzonatate 0 Yes TAKE 1 Univ ers 200 mg 5-02 CAPSULE BY ity of capsule 00:00: MOUTH 3 TIMES A Medical DAY Branch NEEDED FOR 14 DAYS azithromyci Yes TAKE 2 Univ ers n 250 mg 5-02 TABLETS BY ity o f tablet 00:00: MOUTH TODAY, Medical THEN TAKE Branch 1 TABLET DAILY FOR 4 DAYS benzonatate 0 Yes TAKE 1 Univ ers 200 mg 5-02 CAPSULE BY ity of capsule 00:00: MOUTH TIMES A Medical DAY Branch NEEDED FOR 14 DAYS azithromyci 0 Yes TAKE 2 Univ ers n 250 mg 5-02 TABLETS BY ity o f tablet 00:00: MOUTH TODAY, Medical THEN TAKE Branch 1 TABLET DAILY FOR 4 DAYS benzonatate 0 Yes TAKE 1 Univ ers 200 mg 5-02 CAPSULE BY ity of capsule 00:00: MOUTH 3 TIMES A Medical DAY Branch NEEDED FOR 14 DAYS azithromyci 0 Yes TAKE 2 Univ ers n 250 mg 5-02 TABLETS BY ity o f tablet 00:00: MOUTH TODAY, Medical THEN TAKE Branch 1 TABLET DAILY FOR 4 DAYS benzonatate 0 Yes TAKE 1 Univ ers 200 mg 5-02 CAPSULE BY ity of capsule 00:00: MOUTH 3 TIMES A Medical DAY Branch NEEDED FOR 14 DAYS azithromyci 0 Yes TAKE 2 Univ ers n 250 mg 5-02 TABLETS BY ity o f tablet 00:00: MOUTH TODAY, Medical THEN TAKE Branch 1 TABLET DAILY FOR 4 DAYS benzonatate 0 Yes TAKE 1 Univ ers 200 mg 5-02 CAPSULE BY ity of capsule 00:00: MOUTH 3 TIMES A Medical DAY Branch NEEDED FOR 14 DAYS azithromyci 2022-0 Yes TAKE 2 Univ ers n 250 mg 5-02 TABLETS BY ity o f tablet 00:00: MOUTH [place] 00 TODAY, Medical THEN TAKE Branch 1 TABLET DAILY FOR 4 DAYS benzonatate Yes TAKE 1 Univ ers 200 mg 5-02 CAPSULE BY ity of capsule 00:00: MOUTH 3 [place] 00 TIMES A Medical DAY Branch NEEDED FOR 14 DAYS azithromyci Yes TAKE 2 Univ ers n 250 mg 5-02 TABLETS BY ity o f tablet 00:00: MOUTH [place] 00 TODAY, Medical THEN TAKE Branch 1 TABLET DAILY FOR 4 DAYS benzonatate Yes TAKE 1 Univ ers 200 mg 5-02 CAPSULE BY ity of capsule 00:00: MOUTH 3 [place] 00 TIMES A Medical DAY Branch NEEDED FOR 14 DAYS METFORMIN Yes [id number] TAKE 1 Un saima ER 750 mg 2-10 TABLET BY ity o f 24 hr 00:00: MOUTH [place] tablet 00 TWICE A Medical DAY WITH Branch MEALS insulin Yes [id number] 74U inject 74 U nivers degludec 2-10 Units ity of (TRESIBA 00:00: [place] FLEXTOUCH 00 skin every Medi danielle U-200) 200 morning. Branc h unit/mL (3 mL) InPn METFORMIN Yes [id number] TAKE 1 Un saima ER 750 mg 2-10 TABLET BY ity o f 24 hr 00:00: MOUTH [place] tablet 00 TWICE A Medical DAY WITH Branch MEALS insulin Yes [id number] 74U inject 74 U nivers degludec 2-10 Units ity of (TRESIBA 00:00: [place] FLEXTOUCH 00 skin every Medi danielle U-200) 200 morning. Branc h unit/mL (3 mL) InPn METFORMIN Yes [id number] TAKE 1 Un saima ER 750 mg 2-10 TABLET BY ity o f 24 hr 00:00: MOUTH [place] tablet 00 TWICE A Medical DAY WITH Branch MEALS insulin Yes [id number] 74U inject 74 U nivers degludec 2-10 Units ity of (TRESIBA 00:00: [place] FLEXTOUCH 00 skin every Medi danielle U-200) 200 morning. Branc h unit/mL (3 mL) InPn METFORMIN Yes [id number] TAKE 1 Un saima ER 750 mg 2-10 TABLET BY ity o f 24 hr 00:00: MOUTH [place] tablet 00 TWICE A Medical DAY WITH Branch MEALS insulin Yes [id number] 74U inject 74 U nivers degludec 2-10 Units ity of (TRESIBA 00:00: [place] FLEXTOUCH 00 skin every Medi danielle U-200) 200 morning. Branc h unit/mL (3 mL) InPn METFORMIN Yes [id number] TAKE 1 Un saima ER 750 mg 2-10 TABLET BY ity o f 24 hr 00:00: MOUTH [place] tablet 00 TWICE A Medical DAY WITH Branch MEALS insulin Yes [id number] 74U inject 74 U nivers degludec 2-10 Units ity of (TRESIBA 00:00: [place] FLEXTOUCH 00 skin every Medi danielle U-200) 200 morning. Branc h unit/mL (3 mL) InPn METFORMIN Yes [id number] TAKE 1 Un [place]ima ER 750 mg 2-10 TABLET BY ity o f 24 hr 00:00: MOUTH [place] tablet 00 TWICE A Medical DAY WITH Branch MEALS insulin Yes [id number] 74U inject 74 U nivers degludec 2-10 Units ity of (TRESIBA 00:00: [place] FLEXTOUCH 00 skin every Medi danielle U-200) 200 morning. Branc h unit/mL (3 mL) InPn METFORMIN Yes [id number] TAKE 1 Un saima ER 750 mg 2-10 TABLET BY ity o f 24 hr 00:00: MOUTH [place] tablet 00 TWICE A Medical DAY WITH Branch MEALS insulin Yes [id number] 74U inject 74 U nivers degludec 2-10 Units ity of (TRESIBA 00:00: [place] FLEXTOUCH 00 skin every Medi danielle U-200) 200 morning. Branc h unit/mL (3 mL) InPn METFORMIN 2021-0 Yes [id number] TAKE 1 U nivers ER 750 mg 2-10 TABLET BY ity o f 24 hr 00:00: MOUTH [place] tablet 00 TWICE A Medical DAY WITH Branch MEALS insulin 2021-0 Yes [id number] 74U inject 74 [facility] degludec 2-10 Units ity of (TRESIBA 00:00: [place] FLEXTOUCH 00 skin every Medi danielle U-200) 200 morning. Branc h unit/mL (3 mL) InPn METFORMIN Yes [id number] TAKE 1 U nivers ER 750 mg 2-10 TABLET BY ity o f 24 hr 00:00: MOUTH [place] tablet 00 TWICE A Medical DAY WITH Branch MEALS insulin Yes [id number] 74U inject 74 [facility] degludec 2-10 Units ity of (TRESIBA 00:00: [place] the [place] FLEXTOUCH 00 skin every Medi danielle U-200) 200 morning. Branc h unit/mL (3 mL) InPn METFORMIN Yes [id number] TAKE 1 U nivers ER 750 mg 2-10 TABLET BY ity o f 24 hr 00:00: MOUTH [place] tablet 00 TWICE A Medical DAY WITH Branch MEALS insulin Yes [id number] 74U inject 74 [facility] degludec 2-10 Units ity of (TRESIBA 00:00: [place] the [place] FLEXTOUCH 00 skin every Medi danielle U-200) 200 morning. Branc h unit/mL (3 mL) InPn METFORMIN Yes [id number] TAKE 1 U nivers ER 750 mg 2-10 TABLET BY ity o f 24 hr 00:00: MOUTH [place] tablet 00 TWICE A Medical DAY WITH Branch MEALS insulin Yes [id number] 74U inject 74 [facility] degludec 2-10 Units ity of (TRESIBA 00:00: [place] the [place] FLEXTOUCH 00 skin every Medi danielle U-200) 200 morning. Branc h unit/mL (3 mL) InPn METFORMIN Yes [id number] TAKE 1 U nivers ER 750 mg 2-10 TABLET BY ity o f 24 hr 00:00: MOUTH [place] tablet 00 TWICE A Medical DAY WITH Branch MEALS insulin Yes [id number] 74U inject 74 [facility] degludec 2-10 Units ity of (TRESIBA 00:00: [place] FLEXTOUCH 00 skin every Medi danielle U-200) 200 morning. Branc h unit/mL (3 mL) InPn methocarbam 2020-10 Yes [id number] 750mg Take 1 [facility] oL 750 mg 2-27 tablet by ity o f tablet 00:00: mouth (four) Medical times Branch daily as needed for Pain (scale 7-10). methocarbam 2020-10 Yes [id number] 750mg Take 1 [facility] oL 750 mg 2-27 tablet by ity o f tablet 00:00: mouth (four) Medical times Branch daily as needed for Pain (scale 7-10). methocarbam 2020-10 Yes [id number] 750mg Take 1 [facility] oL 750 mg 2-27 tablet by ity o f tablet 00:00: mouth (four) Medical times Branch daily as needed for Pain (scale 7-10). methocarbam 2020-10 Yes [id number] 750mg Take 1 [facility] oL 750 mg 2-27 tablet by ity o f tablet 00:00: mouth (four) Medical times Branch daily as needed for Pain (scale 7-10). methocarbam 2020-10 Yes [id number] 750mg Take 1 [facility] oL 750 mg 2-27 tablet by ity o f tablet 00:00: mouth (four) Medical times Branch daily as needed for Pain (scale 7-10). methocarbam 2020-10 Yes [id number] 750mg Take 1 [facility] oL 750 mg 2-27 tablet by ity o f tablet 00:00: mouth (four) Medical times Branch daily as needed for Pain (scale 7-10). methocarbam 2020-10 Yes [id number] 750mg Take 1 [facility] oL 750 mg 2-27 tablet by ity o f tablet 00:00: mouth (four) Medical times Branch daily as needed for Pain (scale 7-10). methocarbam 2020-10 Yes [id number] 750mg Take 1 [facility] oL 750 mg 2-27 tablet by ity o f tablet 00:00: mouth (four) Medical times Branch daily as needed for Pain (scale 7-10). methocarbam 2020-10 Yes [id number] 750mg Take 1 Univers oL 750 mg 2-27 tablet by ity o f tablet 00:00: mouth (four) Medical times Branch daily as needed for Pain (scale 7-10). methocarbam 2020-10 Yes [id number] 750mg Take 1 Univers oL 750 mg 2-27 tablet by ity o f tablet 00:00: mouth 4 00 (four) Medical times Branch daily as needed for Pain (scale 7-10). methocarbam 2020-10 Yes [id number] 750mg Take 1 Univers oL 750 mg 2-27 tablet by ity o f tablet 00:00: mouth 4 00 (four) Medical times Branch daily as needed for Pain (scale 7-10). methocarbam 2020-10 Yes [id number] 750mg Take 1 Univers oL 750 mg 2-27 tablet by ity o f tablet 00:00: mouth 4 00 (four) Medical times Branch daily as needed for Pain (scale 7-10). ESTROGENS, Yes .625mg Take 0.625 Univers CONJUGATED 8-25 mg by ity of (PREMARIN 09:32: mouth [place] ORAL) 30 daily. Medical Branch ACYCLOVIR, Yes 800mg 800 mg. Uni vers BULK, MISC 8-25 ity of 09:32: Medical Branch ESTROGENS, Yes .625mg Take 0.625 Univers CONJUGATED 8-25 mg by ity of (PREMARIN 09:32: mouth [place] ORAL) 30 daily. Medical Branch ACYCLOVIR, Yes 800mg 800 mg. Uni vers BULK, MISC 8-25 ity of 09:32: 30 Medical Branch ESTROGENS, Yes .625mg Take 0.625 [facility] CONJUGATED 8-25 mg by ity of (PREMARIN 09:32: mouth [place] ORAL) 30 daily. Medical Branch ACYCLOVIR, Yes 800mg 800 mg. Uni vers BULK, MISC 8-25 ity of 09:32: 30 Medical Branch ESTROGENS, Yes .625mg Take 0.625 [facility] CONJUGATED 8-25 mg by ity of (PREMARIN 09:32: mouth [place] ORAL) 30 daily. Medical Branch ACYCLOVIR, Yes 800mg 800 mg. Uni vers BULK, MISC 8-25 ity of 09:32: 30 Medical Branch ESTROGENS, Yes .625mg Take 0.625 [facility] CONJUGATED 8-25 mg by ity of (PREMARIN 09:32: mouth [place] ORAL) 30 daily. Medical Branch ACYCLOVIR, Yes 800mg 800 mg. Uni vers BULK, MISC 8-25 ity of 09:32: 30 Medical Branch ESTROGENS, Yes .625mg Take 0.625 [facility] CONJUGATED 8-25 mg by ity of (PREMARIN 09:32: mouth [place] ORAL) 30 daily. Medical Branch ACYCLOVIR, Yes 800mg 800 mg. Uni vers BULK, MISC 8-25 ity of 09:32: Medical Branch ESTROGENS, Yes .625mg Take 0.625 [facility] CONJUGATED 8-25 mg by ity of (PREMARIN 09:32: mouth [place] ORAL) 30 daily. Medical Branch ACYCLOVIR, Yes 800mg 800 mg. Uni vers BULK, MISC 8-25 ity of 09:32: Medical Branch ESTROGENS, Yes .625mg Take 0.625 [facility] CONJUGATED 8-25 mg by ity of (PREMARIN 09:32: mouth [place] ORAL) 30 daily. Medical Branch ACYCLOVIR, Yes 800mg 800 mg. Uni vers BULK, MISC 8-25 ity of 09:32: Medical Branch ESTROGENS, Yes .625mg Take 0.625 [facility] CONJUGATED 8-25 mg by ity of (PREMARIN 09:32: mouth [place] ORAL) 30 daily. Medical Branch ACYCLOVIR, Yes 800mg 800 mg. Uni vers BULK, MISC 8-25 ity of 09:32: Medical Branch ESTROGENS, Yes .625mg Take 0.625 [facility] CONJUGATED 8-25 mg by ity of (PREMARIN 09:32: mouth [place] ORAL) 30 daily. Medical Branch ACYCLOVIR, Yes 800mg 800 mg. Uni vers BULK, MISC 8-25 ity of 09:32: 30 Medical Branch ESTROGENS, Yes .625mg Take 0.625 [facility] CONJUGATED 8-25 mg by ity of (PREMARIN 09:32: mouth [place] ORAL) 30 daily. Medical Branch ACYCLOVIR, Yes 800mg 800 mg. Uni vers BULK, MISC 8-25 ity of 09:32: 30 Medical Branch ESTROGENS, Yes .625mg Take 0.625 [facility] CONJUGATED 8-25 mg by ity of (PREMARIN 09:32: mouth [place] ORAL) 30 daily. Medical Branch ACYCLOVIR, 0 Yes 800mg 800 mg. Uni vers BULK, MISC 8-25 ity of 09:32: [address] aspirin 81 0 Yes 81mg Take 81 mg U nivers mg tablet 8-25 by mouth ity of 09:30: daily. [address] aspirin 81 0 Yes 81mg Take 81 mg U nivers mg tablet 8-25 by mouth ity of 09:30: daily. [address] aspirin 81 0 Yes 81mg Take 81 mg U nivers mg tablet 8-25 by mouth ity of 09:30: daily. [address] simvastatin Yes 20mg Take 20 mg Univers (ZOCOR) 20 8-25 by mouth ity o f mg tablet 09:29: at [place] [address] bedtime. Medical Branch pantoprazol 0 Yes 40mg Take 40 mg Univers e 40 mg EC 8-25 by mouth ity o f tablet 09:29: daily. [address] lisinopril 0 Yes 5mg Take 5 mg Un saima 5 mg tablet 8-25 by mouth ity of 09:29: daily. [address] simvastatin 0 Yes 20mg Take 20 mg Univers (ZOCOR) 20 8-25 by mouth ity o f mg tablet 09:29: at [place] [address] bedtime. Medical Branch pantoprazol 0 Yes 40mg Take 40 mg Univers e 40 mg EC 8-25 by mouth ity o f tablet 09:29: daily. [address] lisinopril 0 Yes 5mg Take 5 mg Un saima 5 mg tablet 8-25 by mouth ity of 09:29: daily. [address] simvastatin 0 Yes 20mg Take 20 mg Univers (ZOCOR) 20 8-25 by mouth ity o f mg tablet 09:29: at [place] [address] bedtime. Medical Branch pantoprazol 0 Yes 40mg Take 40 mg Univers e 40 mg EC 8-25 by mouth ity o f tablet 09:29: daily. [address] lisinopril 0 Yes 5mg Take 5 mg Un saima 5 mg tablet 8-25 by mouth ity of 09:29: daily. [address] lisinopril -0 Yes 5mg Take 5 mg Un saima 5 mg tablet 8-25 by mouth ity of 09:29: daily. [address] Branch lisinopril 202-0 Yes 5mg Take 5 mg Un saima 5 mg tablet 8-25 by mouth ity of 09:29: daily. [address] Branch lisinopril 202-0 Yes 5mg Take 5 mg Un saima 5 mg tablet 8-25 by mouth ity of 09:29: daily. [address] Branch lisinopril 202-0 Yes 5mg Take 5 mg Un saima 5 mg tablet 8-25 by mouth ity of 09:29: daily. [address] lisinopril 202-0 Yes 5mg Take 5 mg Un saima 5 mg tablet 8-25 by mouth ity of 09:29: daily. [address] lisinopril 202-0 Yes 5mg Take 5 mg Un saima 5 mg tablet 8-25 by mouth ity of 09:29: daily. [address] lisinopril 202-0 Yes 5mg Take 5 mg Un saima 5 mg tablet 8-25 by mouth ity of 09:29: daily. [address] lisinopril 202-0 Yes 5mg Take 5 mg Un saima 5 mg tablet 8-25 by mouth ity of 09:29: daily. [address] lisinopril 2020-0 Yes 5mg Take 5 mg Un saima 5 mg tablet 8-25 by mouth ity of 09:29: daily. [address] Branch insulin 2020-0 Yes [id number] 20U inject 20 U nivers aspart 8-25 Units ity of U-100 00:00: under the [place] (NOVOLOG 00 skin 3 Medical FLEXPEN (three) Branch U-100 times INSULIN) daily 100 unit/mL before (3 mL) meals. injection Insulin 2020-0 Yes [id number] 4 times a U nivers [place], 8- day , ity of Disposable, 00:00: Dx:E11.49 [place] (BD INSULIN 00 Medical PEN NEEDLE Branch UF) 31 gauge x 5/16" Ndle insulin 2020-0 Yes [id number] 20U inject 20 U nivers aspart 8-25 Units ity of U-100 00:00: under the [place] (NOVOLOG 00 skin 3 Medical FLEXPEN (three) Branch U-100 times INSULIN) daily 100 unit/mL before (3 mL) meals. injection Insulin 2020-0 Yes [id number] 4 times a U nivers [place], 8-25 day , ity of Disposable, 00:00: Dx:E11.49 [place] (BD INSULIN 00 Medical PEN NEEDLE Branch UF) 31 gauge x 5/16" Ndle insulin 2020-0 Yes [id number] 20U inject 20 U nivers aspart 8-25 Units ity of U-100 00:00: under the [place] (NOVOLOG 00 skin 3 Medical FLEXPEN (three) Branch U-100 times INSULIN) daily 100 unit/mL before (3 mL) meals. injection Insulin 2020-0 Yes [id number] 4 times a U nivers [place], 8- day , ity of Disposable, 00:00: Dx:E11.49 [place] (BD INSULIN 00 Medical PEN NEEDLE Branch UF) 31 gauge x 5/16" Ndle insulin 2020-0 Yes [id number] 20U inject 20 U nivers aspart 8-25 Units ity of U-100 00:00: under the [place] (NOVOLOG 00 skin 3 Medical FLEXPEN (three) Branch U-100 times INSULIN) daily 100 unit/mL before (3 mL) meals. injection Insulin 2020-0 Yes [id number] 4 times a U nivers [place], 8- day , ity of Disposable, 00:00: Dx:E11.49 [place] (BD INSULIN 00 Medical PEN NEEDLE Branch UF) 31 gauge x 5/16" Ndle insulin 2020-0 Yes [id number] 20U inject 20 U nivers aspart 8-25 Units ity of U-100 00:00: under the [place] (NOVOLOG 00 skin 3 Medical FLEXPEN (three) Branch U-100 times INSULIN) daily 100 unit/mL before (3 mL) meals. injection Insulin 2020-0 Yes [id number] 4 times a U nivers [place], 8-25 day , ity of Disposable, 00:00: Dx:E11.49 [place] (BD INSULIN 00 Medical PEN NEEDLE Branch UF) 31 gauge x 5/16" Ndle insulin 2020-0 Yes [id number] 20U inject 20 U nivers aspart 8-25 Units ity of U-100 00:00: under the [place] (NOVOLOG 00 skin 3 Medical FLEXPEN (three) Branch U-100 times INSULIN) daily 100 unit/mL before (3 mL) meals. injection Insulin 2020-0 Yes [id number] 4 times a U nivers [place], 8-25 day , ity of Disposable, 00:00: Dx:E11.49 [place] (BD INSULIN 00 Medical PEN NEEDLE Branch UF) 31 gauge x 5/16" Ndle insulin 2020-0 Yes [id number] 20U inject 20 U nivers aspart 8-25 Units ity of U-100 00:00: under the [place] (NOVOLOG 00 skin 3 Medical FLEXPEN (three) Branch U-100 times INSULIN) daily 100 unit/mL before (3 mL) meals. injection Insulin 2020-0 Yes [id number] 4 times a U nivers [place], 8-25 day , ity of Disposable, 00:00: Dx:E11.49 [place] (BD INSULIN 00 Medical PEN NEEDLE Branch UF) 31 gauge x 5/16" Ndle insulin 2020-0 Yes [id number] 20U inject 20 [facility] aspart 8-25 Units ity of U-100 00:00: under the [place] (NOVOLOG 00 skin 3 Medical FLEXPEN (three) Branch U-100 times INSULIN) daily 100 unit/mL before (3 mL) meals. injection Insulin 2020-0 Yes [id number] 4 times a Univers [place], 8- day , ity of Disposable, 00:00: Dx:E11.49 [place] (BD INSULIN 00 Medical PEN NEEDLE Branch UF) 31 gauge x 5/16" Ndle insulin 2020-0 Yes [id number] 20U inject 20 [facility] aspart 8-25 Units ity of U-100 00:00: under the [place] (NOVOLOG 00 skin 3 Medical FLEXPEN (three) Branch U-100 times INSULIN) daily 100 unit/mL before (3 mL) meals. injection Insulin 2020-0 Yes [id number] 4 times a Univers [place], 8-25 day , ity of Disposable, 00:00: Dx:E11.49 [place] (BD INSULIN 00 Medical PEN NEEDLE Branch UF) 31 gauge x 5/16" Ndle insulin 2020-0 Yes [id number] 20U inject 20 [facility] aspart 8-25 Units ity of U-100 00:00: under the [place] (NOVOLOG 00 skin 3 Medical FLEXPEN (three) Branch U-100 times INSULIN) daily 100 unit/mL before (3 mL) meals. injection Insulin 2020-0 Yes [id number] 4 times a Univers [place], 8- day , ity of Disposable, 00:00: Dx:E11.49 [place] (BD INSULIN 00 Medical PEN NEEDLE Branch UF) 31 gauge x 5/16" Ndle insulin 2020-0 Yes [id number] 20U inject 20 Univers aspart 8-25 Units ity of U-100 00:00: under the [place] (NOVOLOG 00 skin 3 Medical FLEXPEN (three) Branch U-100 times INSULIN) daily 100 unit/mL before (3 mL) meals. injection Insulin 2020-0 Yes [id number] 4 times a Univers [place], 8- day , ity of Disposable, 00:00: Dx:E11.49 [place] (BD INSULIN 00 Medical PEN NEEDLE Branch UF) 31 gauge x 5/16" Ndle insulin 2020-0 Yes [id number] 20U inject 20 [facility] aspart 8-25 Units ity of U-100 00:00: under the [place] (NOVOLOG 00 skin 3 Medical FLEXPEN (three) Branch U-100 times INSULIN) daily 100 unit/mL before (3 mL) meals. injection Insulin 2020-0 Yes [id number] 4 times a [facility] [place], 8- day , ity of Disposable, 00:00: Dx:E11.49 [place] (BD INSULIN 00 Medical PEN NEEDLE Branch UF) 31 gauge x 5/16" N[place] cetirizine 2020-0 Yes 10mg Take 10 mg U nivers 10 mg 8-13 by mouth ity of tablet 00:00: daily. [address] Branch montelukast 2020-0 Yes 10mg Take 10 mg Univers 10 mg 8-13 by mouth ity of tablet 00:00: daily. [address] Branch cetirizine 2020-0 Yes 10mg Take 10 mg U nivers 10 mg 8-13 by mouth ity of tablet 00:00: daily. [address] montelukast 2020-0 Yes 10mg Take 10 mg Univers 10 mg 8-13 by mouth ity of tablet 00:00: daily. [address] cetirizine 2020-0 Yes 10mg Take 10 mg U nivers 10 mg 8-13 by mouth ity of tablet 00:00: daily. [place] 00 Medical Branch montelukast 1-0 Yes 10mg Take 10 mg Univers 10 mg 8-13 by mouth ity of tablet 00:00: daily. [place] [facility] Branch cetirizine 2020-0 Yes 10mg Take 10 mg U nivers 10 mg 8-13 by mouth ity of tablet 00:00: in the [place] morning Medical and 10 mg Branch in the evening. montelukast 2021-0 Yes 10mg Take 10 mg Univers 10 mg 8-13 by mouth ity of tablet 00:00: daily. [place] [address] Medical Branch cetirizine 2020-0 Yes 10mg Take 10 mg U nivers 10 mg 8-13 by mouth ity of tablet 00:00: in the [place] morning Medical and 10 mg Branch in the evening. montelukast 1-0 Yes 10mg Take 10 mg Univers 10 mg 8-13 by mouth ity of tablet 00:00: daily. [address] cetirizine 2020-0 Yes 10mg Take 10 mg U nivers 10 mg 8-13 by mouth ity of tablet 00:00: in the [place] morning Medical and 10 mg Branch in the evening. montelukast 2020-0 Yes 10mg Take 10 mg Univers 10 mg 8-13 by mouth ity of tablet 00:00: daily. [address] cetirizine 2020-0 Yes 10mg Take 10 mg U nivers 10 mg 8-13 by mouth ity of tablet 00:00: in the [place] morning Medical and 10 mg Branch in the evening. montelukast 2020-0 Yes 10mg Take 10 mg Univers 10 mg 8-13 by mouth ity of tablet 00:00: daily. [address] Branch cetirizine 1-0 Yes 10mg Take 10 mg U nivers 10 mg 8-13 by mouth ity of tablet 00:00: in the [place] morning Medical and 10 mg Branch in the evening. montelukast 2021-0 Yes 10mg Take 10 mg Univers 10 mg 8-13 by mouth ity of tablet 00:00: daily. [address] cetirizine 1-0 Yes 10mg Take 10 mg U nivers 10 mg 8-13 by mouth ity of tablet 00:00: in the [place] morning Medical and 10 mg Branch in the evening. montelukast 2021-0 Yes 10mg Take 10 mg Univers 10 mg 8-13 by mouth ity of tablet 00:00: daily. [place] Medical Branch cetirizine 2021-0 Yes 10mg Take 10 mg U nivers 10 mg 8-13 by mouth ity of tablet 00:00: in the [place] morning Medical and 10 mg Branch in the evening. montelukast 2021-0 Yes 10mg Take 10 mg Univers 10 mg 8-13 by mouth ity of tablet 00:00: daily. [place] [address] Medical Branch cetirizine 2021-0 Yes 10mg Take 10 mg U nivers 10 mg 8-13 by mouth ity of tablet 00:00: in the [place] morning Medical and 10 mg Branch in the evening. montelukast 2021-0 Yes 10mg Take 10 mg Univers 10 mg 8-13 by mouth ity of tablet 00:00: daily. [place] [address] Medical Branch cetirizine 2021-0 Yes 10mg Take 10 mg U nivers 10 mg 8-13 by mouth ity of tablet 00:00: in the [place] morning Medical and 10 mg Branch in the evening. montelukast 2021-0 Yes 10mg Take 10 mg Univers 10 mg 8-13 by mouth ity of tablet 00:00: daily. [place] [address] Medical Branch carvediloL 2021-0 Yes 25mg Take 25 mg U nivers 25 mg 7-13 by mouth 2 ity of tablet 00:00: (two) [place] 00 times Medical daily with Branch meals. carvediloL 2021-0 Yes 25mg Take 25 mg U nivers 25 mg 7-13 by mouth 2 ity of tablet 00:00: (two) [place] times Medical daily with Branch meals. carvediloL 2021-0 Yes 25mg Take 25 mg U nivers 25 mg 7-13 by mouth 2 ity of tablet 00:00: (two) [place] times Medical daily with Branch meals. carvediloL 2021-0 Yes 25mg Take 25 mg U nivers 25 mg 7-13 by mouth 2 ity of tablet 00:00: (two) [place] times Medical daily with Branch meals. carvediloL 2021-0 Yes 25mg Take 25 mg U nivers 25 mg 7-13 by mouth 2 ity of tablet 00:00: (two) [place] 00 times Medical daily with Branch meals. carvediloL 2021-0 Yes 25mg Take 25 mg U nivers 25 mg 7-13 by mouth 2 ity of tablet 00:00: (two) [place] times Medical daily with Branch meals. carvediloL 2021-0 Yes 25mg Take 25 mg U nivers 25 mg 7-13 by mouth 2 ity of tablet 00:00: (two) [place] times Medical daily with Branch meals. carvediloL 2021-0 Yes 25mg Take 25 mg U nivers 25 mg 7-13 by mouth 2 ity of tablet 00:00: (two) [place] times Medical daily with Branch meals. carvediloL 2021-0 Yes 25mg Take 25 mg U nivers 25 mg 7-13 by mouth 2 ity of tablet 00:00: (two) [place] times Medical daily with Branch meals. carvediloL 2021-0 Yes 25mg Take 25 mg U nivers 25 mg 7-13 by mouth 2 ity of tablet 00:00: (two) [place] times Medical daily with Branch meals. carvediloL 2021-0 Yes 25mg Take 25 mg U nivers 25 mg 7-13 by mouth 2 ity of tablet 00:00: (two) [place] times Medical daily with Branch meals. carvediloL 2021-0 Yes 25mg Take 25 mg U nivers 25 mg 7-13 by mouth 2 ity of tablet 00:00: (two) [place] times Medical daily with Branch meals. Cholecalcif 2021-0 Yes 1 CAPSULE U nivers imtiaz, 7- ONCE A ity of Vitamin D3, 00:00: WEEK X 12 [place] 1,250 mcg 00 WEEKS Medical (50,000 ORALLY 30 Branch unit) DAY(S) capsule Cholecalcif 2021-0 Yes 1 CAPSULE U nivers imtiaz, - ONCE A ity of Vitamin D3, 00:00: WEEK X 12 [place] 1,250 mcg 00 WEEKS Medical (50,000 ORALLY 30 Branch unit) DAY(S) capsule Cholecalcif 2021-0 Yes 1 CAPSULE U nivers imtiaz, - ONCE A ity of Vitamin D3, 00:00: WEEK X 12 [place] 1,250 mcg 00 WEEKS Medical (50,000 ORALLY 30 Branch unit) DAY(S) capsule Cholecalcif 2021-0 Yes 1 CAPSULE U nivers imtiaz, 7- ONCE A ity of Vitamin D3, 00:00: WEEK X 12 [place] 1,250 mcg 00 WEEKS Medical (50,000 ORALLY 30 Branch unit) DAY(S) capsule Cholecalcif 2021-0 Yes 1 CAPSULE U nivers imtiaz, 05-03 ONCE A ity of Vitamin D3, 00:00: WEEK X 12 [place] 1,250 mcg 00 WEEKS Medical (50,000 ORALLY 30 Branch unit) DAY(S) capsule Cholecalcif 2021-0 Yes 1 CAPSULE U nivers imtiaz, 7- ONCE A ity of Vitamin D3, 00:00: WEEK X 12 [place] 1,250 mcg 00 WEEKS Medical (50,000 ORALLY 30 Branch unit) DAY(S) capsule Cholecalcif 2021-0 Yes 1 CAPSULE U nivers imtiaz, 05-03 ONCE A ity of Vitamin D3, 00:00: WEEK X 12 [place] 1,250 mcg 00 WEEKS Medical (50,000 ORALLY 30 Branch unit) DAY(S) capsule Cholecalcif 2021-0 Yes 1 CAPSULE U nivers imtiaz, 05-03 ONCE A ity of Vitamin D3, 00:00: WEEK X 12 [place] 1,250 mcg 00 WEEKS Medical (50,000 ORALLY 30 Branch unit) DAY(S) capsule Cholecalcif 2021-0 Yes 1 CAPSULE U nivers imtiaz, 05-03 ONCE A ity of Vitamin D3, 00:00: WEEK X 12 [place] 1,250 mcg 00 WEEKS Medical (50,000 ORALLY 30 Branch unit) DAY(S) capsule Cholecalcif 2021-0 Yes 1 CAPSULE U nivers imtiaz, - ONCE A ity of Vitamin D3, 00:00: WEEK X 12 [place] 1,250 mcg 00 WEEKS Medical (50,000 ORALLY 30 Branch unit) DAY(S) capsule Cholecalcif 2021-0 Yes 1 CAPSULE U nivers imitaz, 7- ONCE A ity of Vitamin D3, 00:00: WEEK X 12 [place] 1,250 mcg 00 WEEKS Medical (50,000 ORALLY 30 Branch unit) DAY(S) capsule Cholecalcif 2021-0 Yes 1 CAPSULE U nivers imtiaz, - ONCE A ity of Vitamin D3, 00:00: WEEK X 12 [place] 1,250 mcg 00 WEEKS Medical (50,000 ORALLY 30 Branch unit) DAY(S) capsule carvedilol Yes 25 mg, PO, M em[place] 06-26 BID, 0 l 14:44: Refill(s) [place] 00 ondansetron 2018-10 Yes [id number] 4mg Take 1 Univers (ZOFRAN 0-18 tablet by ity of ODT) 4 mg 00:00: mouth [place] disintegrat 00 every 8 Medic al ing tablet (eight) Branch hours as needed for Nausea and Vomiting (N/V). traMADol 2018-10 Yes [id number] 50mg Take 1 Uni vers (ULTRAM) 50 0-18 tablet by ity of mg tablet 00:00: mouth [place] 00 every 8 Medical (eight) Branch hours as needed for Pain (scale 4-6). ondansetron 2018-10 Yes [id number] 4mg Take 1 Univers (ZOFRAN 0-18 tablet by ity of ODT) 4 mg 00:00: mouth [place] disintegrat 00 every 8 Medic al ing tablet (eight) Branch hours as needed for Nausea and Vomiting (N/V). traMADol 2018-10 Yes [id number] 50mg Take 1 Uni vers (ULTRAM) 50 0-18 tablet by ity of mg tablet 00:00: mouth [place] 00 every 8 Medical (eight) Branch hours as needed for Pain (scale 4-6). ondansetron 2018-10 Yes [id number] 4mg Take 1 Univers (ZOFRAN 0-18 tablet by ity of ODT) 4 mg 00:00: mouth [place] disintegrat 00 every 8 Medic al ing tablet (eight) Branch hours as needed for Nausea and Vomiting (N/V). traMADol 2018-10 Yes [id number] 50mg Take 1 Uni vers (ULTRAM) 50 0-18 tablet by ity of mg tablet 00:00: mouth [place] 00 every 8 Medical (eight) Branch hours as needed for Pain (scale 4-6). ondansetron 2018-10 Yes [id number] 4mg Take 1 Univers (ZOFRAN 0-18 tablet by ity of ODT) 4 mg 00:00: mouth [place] disintegrat 00 every 8 Medic al ing tablet (eight) Branch hours as needed for Nausea and Vomiting (N/V). traMADol 2018-10 Yes [id number] 50mg Take 1 Uni vers (ULTRAM) 50 0-18 tablet by ity of mg tablet 00:00: mouth [place] 00 every 8 Medical (eight) Branch hours as needed for Pain (scale 4-6). ondansetron 2018-10 Yes [id number] 4mg Take 1 Univers (ZOFRAN 0-18 tablet by ity of ODT) 4 mg 00:00: mouth [place] disintegrat 00 every 8 Medic al ing tablet (eight) Branch hours as needed for Nausea and Vomiting (N/V). traMADol 2018-10 Yes [id number] 50mg Take 1 Uni vers (ULTRAM) 50 0-18 tablet by ity of mg tablet 00:00: mouth [place] 00 every 8 Medical (eight) Branch hours as needed for Pain (scale 4-6). ondansetron 2018-10 Yes [id number] 4mg Take 1 Univers (ZOFRAN 0-18 tablet by ity of ODT) 4 mg 00:00: mouth [place] disintegrat 00 every 8 Medic al ing tablet (eight) Branch hours as needed for Nausea and Vomiting (N/V). traMADol 2018-10 Yes [id number] 50mg Take 1 Uni vers (ULTRAM) 50 0-18 tablet by ity of mg tablet 00:00: mouth [place] 00 every 8 Medical (eight) Branch hours as needed for Pain (scale 4-6). ondansetron 2018-10 Yes [id number] 4mg Take 1 Univers (ZOFRAN 0-18 tablet by ity of ODT) 4 mg 00:00: mouth [place] disintegrat 00 every 8 Medic al ing tablet (eight) Branch hours as needed for Nausea and Vomiting (N/V). traMADol 2018-10 Yes [id number] 50mg Take 1 Uni vers (ULTRAM) 50 0-18 tablet by ity of mg tablet 00:00: mouth [place] 00 every 8 Medical (eight) Branch hours as needed for Pain (scale 4-6). ondansetron 2018-10 Yes [id number] 4mg Take 1 Univers (ZOFRAN 0-18 tablet by ity of ODT) 4 mg 00:00: mouth [place] disintegrat 00 every 8 Medic al ing tablet (eight) Branch hours as needed for Nausea and Vomiting (N/V). traMADol 2018-10 Yes [id number] 50mg Take 1 Uni vers (ULTRAM) 50 0-18 tablet by ity of mg tablet 00:00: mouth [place] 00 every 8 Medical (eight) Branch hours as needed for Pain (scale 4-6). ondansetron 2018-10 Yes [id number] 4mg Take 1 Univers (ZOFRAN 0-18 tablet by ity of ODT) 4 mg 00:00: mouth [place] disintegrat 00 every 8 Medic al ing tablet (eight) Branch hours as needed for Nausea and Vomiting (N/V). traMADol 2018-10 Yes [id number] 50mg Take 1 Uni vers (ULTRAM) 50 0-18 tablet by ity of mg tablet 00:00: mouth [place] 00 every 8 Medical (eight) Branch hours as needed for Pain (scale 4-6). ondansetron 2018-10 Yes [id number] 4mg Take 1 Univers (ZOFRAN 0-18 tablet by ity of ODT) 4 mg 00:00: mouth [place] disintegrat 00 every 8 Medic al ing tablet (eight) Branch hours as needed for Nausea and Vomiting (N/V). traMADol 2018-10 Yes [id number] 50mg Take 1 Uni vers (ULTRAM) 50 0-18 tablet by ity of mg tablet 00:00: mouth [place] 00 every 8 Medical (eight) Branch hours as needed for Pain (scale 4-6). ondansetron 2018-10 Yes [id number] 4mg Take 1 Univers (ZOFRAN 0-18 tablet by ity of ODT) 4 mg 00:00: mouth [place] disintegrat 00 every 8 Medic al ing tablet (eight) Branch hours as needed for Nausea and Vomiting (N/V). traMADol 2018-10 Yes [id number] 50mg Take 1 Uni vers (ULTRAM) 50 0-18 tablet by ity of mg tablet 00:00: mouth [place] 00 every 8 Medical (eight) Branch hours as needed for Pain (scale 4-6). ondansetron 2018-10 Yes [id number] 4mg Take 1 Univers (ZOFRAN 0-18 tablet by ity of ODT) 4 mg 00:00: mouth [place] disintegrat 00 every 8 Medic al ing tablet (eight) Branch hours as needed for Nausea and Vomiting (N/V). traMADol 2018-10 Yes [id number] 50mg Take 1 Uni vers (ULTRAM) 50 0-18 tablet by ity of mg tablet 00:00: mouth [place] 00 every 8 Medical (eight) Branch hours as needed for Pain (scale 4-6). proMETHazin 2016-0 Yes 25mg Take 1 Univ ers e 7-31 tablet by ity of (PHENERGAN) 00:00: mouth [place] 25 mg 00 every 6 Medical tablet (six) Branch hours as needed for Nausea and Vomiting (N/V). proMETHazin 2016-0 Yes 25mg Take 1 Univ ers e 7-31 tablet by ity of (PHENERGAN) 00:00: mouth [place] 25 mg 00 every 6 Medical tablet (six) Branch hours as needed for Nausea and Vomiting (N/V). proMETHazin 2016-0 Yes 25mg Take 1 Univ ers e 7-31 tablet by ity of (PHENERGAN) 00:00: mouth [place] 25 mg 00 every 6 Medical tablet (six) Branch hours as needed for Nausea and Vomiting (N/V). proMETHazin 2016-0 Yes 25mg Take 1 Univ ers e 7-31 tablet by ity of (PHENERGAN) 00:00: mouth [place] 25 mg 00 every 6 Medical tablet (six) Branch hours as needed for Nausea and Vomiting (N/V). proMETHazin 2016-0 Yes 25mg Take 1 Univ ers e 7-31 tablet by ity of (PHENERGAN) 00:00: mouth [place] 25 mg 00 every 6 Medical tablet (six) Branch hours as needed for Nausea and Vomiting (N/V). proMETHazin 2016-0 Yes 25mg Take 1 Univ ers e 7-31 tablet by ity of (PHENERGAN) 00:00: mouth [place] 25 mg 00 every 6 Medical tablet (six) Branch hours as needed for Nausea and Vomiting (N/V). proMETHazin 2016-0 Yes 25mg Take 1 Univ ers e 7-31 tablet by ity of (PHENERGAN) 00:00: mouth [place] 25 mg 00 every 6 Medical tablet (six) Branch hours as needed for Nausea and Vomiting (N/V). proMETHazin 2016-0 Yes 25mg Take 1 Univ ers e 7-31 tablet by ity of (PHENERGAN) 00:00: mouth [place] 25 mg 00 every 6 Medical tablet (six) Branch hours as needed for Nausea and Vomiting (N/V). proMETHazin 2016-0 Yes 25mg Take 1 Univ ers e 7-31 tablet by ity of (PHENERGAN) 00:00: mouth [place] 25 mg 00 every 6 Medical tablet (six) Branch hours as needed for Nausea and Vomiting (N/V). proMETHazin 2015-0 Yes 25mg Take 1 Univ ers e 7-31 tablet by ity of (PHENERGAN) 00:00: mouth [place] 25 mg 00 every 6 Medical tablet (six) Branch hours as needed for Nausea and Vomiting (N/V). proMETHazin 2015-0 Yes 25mg Take 1 Univ ers e [...] MOUTH [place] capsule 00 ONCE A DAY [facility] gabapentin 0 Yes TAKE 2 Unive rs (NEURONTIN) 4-04 CAPSULES ity of 300 mg 00:00: BY MOUTH [place] capsule 00 ONCE A DAY [facility] gabapentin 2015-0 Yes TAKE 2 Unive rs (NEURONTIN) 4-04 CAPSULES ity of 300 mg 00:00: BY MOUTH [place] capsule 00 ONCE A DAY [facility] gabapentin 2015-0 Yes TAKE 2 Unive rs (NEURONTIN) 4-04 CAPSULES ity of 300 mg 00:00: BY MOUTH [place] capsule 00 ONCE A DAY [facility] gabapentin 2015-0 Yes TAKE 2 Unive rs (NEURONTIN) 4-04 CAPSULES ity of 300 mg 00:00: BY MOUTH [place] capsule 00 ONCE A DAY [facility] gabapentin 2015-0 Yes TAKE 2 Unive rs (NEURONTIN) 4-04 CAPSULES ity of 300 mg 00:00: BY MOUTH [place] capsule 00 ONCE A DAY [facility] gabapentin 2015-0 Yes TAKE 2 Unive rs (NEURONTIN) 4-04 CAPSULES ity of 300 mg 00:00: BY MOUTH [place] capsule 00 ONCE A DAY [facility] gabapentin 2015-0 Yes TAKE 2 Unive rs (NEURONTIN) 4-04 CAPSULES ity of 300 mg 00:00: BY MOUTH [place] capsule 00 ONCE A DAY [facility] gabapentin Yes TAKE 2 Unive rs (NEURONTIN) 4-04 CAPSULES ity of 300 mg 00:00: BY MOUTH [place] capsule 00 ONCE A DAY [facility] gabapentin Yes TAKE 2 Unive rs (NEURONTIN) 4-04 CAPSULES ity of 300 mg 00:00: BY MOUTH [place] capsule 00 ONCE A DAY [facility] gabapentin Yes TAKE 2 Unive rs (NEURONTIN) 4-04 CAPSULES ity of 300 mg 00:00: BY MOUTH [place] capsule 00 ONCE A DAY [facility] gabapentin Yes TAKE 2 Unive rs (NEURONTIN) 4-04 CAPSULES ity of 300 mg 00:00: BY MOUTH [place] capsule 00 ONCE A DAY [facility] METOPROLOL Yes 1 Tab Oral U nivers SUCCINATE 6-15 DAILY ity of 50 MG ORAL 00:00: [place] [address] [facility] METOPROLOL 0 Yes 1 Tab Oral U nivers SUCCINATE 6-15 DAILY ity of 50 MG ORAL 00:00: [place] [address] [facility] METOPROLOL 0 Yes 1 Tab Oral U nivers SUCCINATE 6-15 DAILY ity of 50 MG ORAL 00:00: [place] [address] [facility] METOPROLOL 2007-0 Yes 1 Tab Oral U nivers SUCCINATE 6-15 DAILY ity of 50 MG ORAL 00:00: [place] [address] [facility] METOPROLOL 0 Yes 1 Tab Oral U nivers SUCCINATE 6-15 DAILY ity of 50 MG ORAL 00:00: [place] [address] [facility] METOPROLOL 2007-0 Yes 1 Tab Oral U nivers SUCCINATE 6-15 DAILY ity of 50 MG ORAL 00:00: [place] [address] [facility] METOPROLOL 0 Yes 1 Tab Oral U nivers SUCCINATE 6-15 DAILY ity of 50 MG ORAL 00:00: [place] [address] [facility] METOPROLOL 2007-0 Yes 1 Tab Oral U nivers SUCCINATE 6-15 DAILY ity of 50 MG ORAL 00:00: [place] [address] [facility] METOPROLOL 2007-0 Yes 1 Tab Oral U nivers SUCCINATE 6-15 DAILY ity of 50 MG ORAL 00:00: [place] [address] [facility] METOPROLOL 2007-0 Yes 1 Tab Oral U nivers SUCCINATE 6-15 DAILY ity of 50 MG ORAL 00:00: [place] [address] 00 Medical Branch METOPROLOL 2008-0 Yes 1 Tab Oral U nivers SUCCINATE 6-15 DAILY ity of 50 MG ORAL 00:00: [place] [address] 00 Medical Branch METOPROLOL 2008-0 Yes 1 Tab Oral U nivers SUCCINATE 6-15 DAILY ity of 50 MG ORAL 00:00: [place] [address] 00 Medical Branch Immunizations Ordered Filled Immunization Date Status Comments [facility] e Immunization Name Name SARS-COV-2 COVID-19 2020-12-29 Completed Unive rsity of MODERNA VACCINE 00:00:00 [facility] ical Branch SARS-COV-2 COVID-19 2020-12-29 Completed Unive rsity of MODERNA VACCINE 00:00:00 [facility] ical Branch SARS-COV-2 COVID-19 2020-12-29 Completed Unive rsity of MODERNA VACCINE 00:00:00 [facility] ical Branch SARS-COV-2 COVID-19 2020-12-29 Completed Unive rsity of MODERNA VACCINE 00:00:00 [facility] ical Branch SARS-COV-2 COVID-19 2020-12-29 Completed Unive rsity of MODERNA VACCINE 00:00:00 [facility] ical Branch SARS-COV-2 COVID-19 2020-12-29 Completed Unive rsity of MODERNA VACCINE 00:00:00 [facility] ical Branch SARS-COV-2 COVID-19 2020-12-29 Completed Unive rsity of MODERNA 12+ YRS 00:00:00 [place] [facility] ical VACCINE Branch SARS-COV-2 COVID-19 2020-12-29 Completed Unive rsity of MODERNA 12+ YRS 00:00:00 [place] [facility] ical VACCINE Branch SARS-COV-2 COVID-19 2020-12-29 Completed Unive rsity of MODERNA 12+ YRS 00:00:00 [place] [facility] ical VACCINE Branch SARS-COV-2 COVID-19 2020-12-29 Completed Unive rsity of MODERNA 12+ YRS 00:00:00 [facility] ical VACCINE Branch SARS-COV-2 COVID-19 2020-12-29 Completed Unive rsity of MODERNA 12+ YRS 00:00:00 [facility] ical VACCINE Branch SARS-COV-2 COVID-19 2020-12-29 Completed Unive rsity of MODERNA 12+ YRS 00:00:00 [place] Med ical VACCINE Branch SARS-COV-2 COVID-19 2020-12-01 Completed Unive rsity of MODERNA VACCINE 00:00:00 [place] Med ical Branch SARS-COV-2 COVID-19 2020-12-01 Completed Unive rsity of MODERNA VACCINE 00:00:00 [place] Med ical Branch SARS-COV-2 COVID-19 2020-12-01 Completed Unive rsity of MODERNA VACCINE 00:00:00 [place] Med ical Branch SARS-COV-2 COVID-19 2020-12-01 Completed Unive rsity of MODERNA VACCINE 00:00:00 [place] Med ical Branch SARS-COV-2 COVID-19 2020-12-01 Completed Unive rsity of MODERNA VACCINE 00:00:00 [place] [facility] ical Branch SARS-COV-2 COVID-19 2020-12-01 Completed Unive rsity of MODERNA VACCINE 00:00:00 [place] Med ical Branch SARS-COV-2 COVID-19 2020-12-01 Completed Unive rsity of MODERNA 12+ YRS 00:00:00 [place] Med ical VACCINE Branch SARS-COV-2 COVID-19 2020-12-01 Completed Unive rsity of MODERNA 12+ YRS 00:00:00 [place] Med ical VACCINE Branch SARS-COV-2 COVID-19 2020-12-01 Completed Unive rsity of MODERNA 12+ YRS 00:00:00 [place] Med ical VACCINE Branch SARS-COV-2 COVID-19 2020-12-01 Completed Unive rsity of MODERNA 12+ YRS 00:00:00 [place] Med ical VACCINE Branch SARS-COV-2 COVID-19 2020-12-01 Completed Unive rsity of MODERNA 12+ YRS 00:00:00 [place] Med ical VACCINE Branch SARS-COV-2 COVID-19 2020-12-01 Completed Unive rsity of MODERNA 12+ YRS 00:00:00 [facility] ical VACCINE Branch Pneumococcal 2017-06-26 Completed University o f Polysaccharide, 00:00:00 [facility] PPSV[facility] (PNEUMOVAX) Branch Influenza Virus 2017-06-26 Completed Universit y of Vaccine Quad ID 00:00:00 [place] [facility] ical 18-64 YRS Branch Pneumococcal 2017-06-26 Completed University o f Polysaccharide, 00:00:00 [place] Med ical PPSV23 (PNEUMOVAX) Branch Influenza Virus 2017-06-26 Completed Universit y of Vaccine Quad ID 00:00:00 [place] Med ical 18-64 YRS Branch Pneumococcal 2017-06-26 Completed University o f Polysaccharide, 00:00:00 [place] Med ical PPSV23 (PNEUMOVAX) Branch Influenza Virus 2017-06-26 Completed Universit y of Vaccine Quad ID 00:00:00 [place] Med ical 18-64 YRS Branch Pneumococcal 2017-06-26 Completed University o f Polysaccharide, 00:00:00 [place] Med ical PPSV23 (PNEUMOVAX) Branch Influenza Virus 2017-06-26 Completed Universit y of Vaccine Quad ID 00:00:00 [place] [facility] ical 18-64 YRS Branch Pneumococcal 2017-06-26 Completed University o f Polysaccharide, 00:00:00 [place] Med ical PPSV23 (PNEUMOVAX) Branch Influenza Virus 2017-06-26 Completed Universit y of Vaccine Quad ID 00:00:00 [place] [facility] ical 18-64 YRS Branch Pneumococcal 2017-06-26 Completed University o f Polysaccharide, 00:00:00 [place] Med ical PPSV23 (PNEUMOVAX) Branch Influenza Virus 2017-06-26 Completed Universit y of Vaccine Quad ID 00:00:00 [facility] ical 18-64 YRS Branch Pneumococcal 2017-06-26 Completed University o f Polysaccharide, 00:00:00 [place] Med ical PPSV23 (PNEUMOVAX) Branch Influenza Virus 2017-06-26 Completed Universit y of Vaccine Quad ID 00:00:00 [place] Med ical 18-64 YRS Branch Pneumococcal 2017-06-26 Completed University o f Polysaccharide, 00:00:00 [place] Med ical PPSV23 (PNEUMOVAX) Branch Influenza Virus 2017-06-26 Completed Universit y of Vaccine Quad ID 00:00:00 [place] Med ical 18-64 YRS Branch Pneumococcal 2017-06-26 Completed University o f Polysaccharide, 00:00:00 [place] Med ical PPSV23 (PNEUMOVAX) Branch Influenza Virus 2017-06-26 Completed Universit y of Vaccine Quad ID 00:00:00 [place] Med ical 18-64 YRS Branch Pneumococcal 2017-06-26 Completed University o f Polysaccharide, 00:00:00 [place] Med ical PPSV23 (PNEUMOVAX) Branch Influenza Virus 2017-06-26 Completed Universit y of Vaccine Quad ID 00:00:00 [place] Med ical 18-64 YRS Branch Pneumococcal 2017-06-26 Completed University o f Polysaccharide, 00:00:00 [place] Med ical PPSV23 (PNEUMOVAX) Branch Influenza Virus 2017-06-26 Completed Universit y of Vaccine Quad ID 00:00:00 [place] Med ical 18-64 YRS Branch Pneumococcal 2017-06-26 Completed University o f Polysaccharide, 00:00:00 [place] Med ical PPSV23 (PNEUMOVAX) Branch Influenza Virus 2017-06-26 Completed Universit y of Vaccine Quad ID 00:00:00 [place] [facility] ical 18-64 YRS Branch Vital Signs Vital Name Observation Time Observation Value Comments Source Body height 2022-10-10 14:11:[facility] 2022-10-10 14:11:00 81.194 kg [facility] BMI 2022-10-10 14:11:00 34.96 kg/m2 [facility] Systolic blood 2022-05-12 18:00:00 127 mm[Hg] Univer sity of pressure [facility] Diastolic blood 2022-05-12 18:00:00 76 mm[Hg] Unive rsity of [facility] Heart rate 2022-05-12 18:00:00 70 /min [facility] Body temperature 2022-05-12 18:00:00 36.78 [facility] rate 2022-05-12 18:00:00 22 /min [facility] Oxygen saturation in 2022-05-12 18:00:00 95 /min [facility] Arterial blood by [facility] Pulse oximetry Branch Body height 2022-05-12 15:25:00 152.4 cm [facility] [facility] Body weight 2022-05-12 15:25:00 81.194 kg [facility] BMI 2022-05-12 15:25:00 34.96 kg/m2 [facility] Systolic blood 2022-04-28 17:30:00 131 mm[Hg] Univer sity of pressure [facility] Diastolic blood 2022-04-28 17:30:00 73 mm[Hg] Unive rsity of pressure [facility] Heart rate 2022-04-28 17:30:00 74 /min Universi ty of [facility] Body temperature 2022-04-28 17:30:00 36.11 [facility] Respiratory rate 2022-04-28 17:30:00 16 /min [facility] Body height 2022-04-28 17:30:00 152.4 cm Universi ty of [facility] Body weight 2022-04-28 17:30:00 81.375 kg Universi ty [facility] BMI 2022-04-28 17:30:00 35.04 kg/m2 [facility] Oxygen saturation in 2022-04-28 17:30:00 97 /min [facility] Arterial blood by [facility] Pulse oximetry Branch Systolic (mm Hg) 2020-08-02 13:25:00 Brian rial Carrie Diastolic (mm Hg) 2020-08-02 13:25:00 Mem orial Carrie Heart Rate 2020-08-02 13:25:00 [facility] Respitory Rate 2020-08-02 13:25:00 Memori al Carrie Height 2020-08-02 13:25:00 152.4 cm [facility] Weight 2020-08-02 13:25:00 [facility] BMI Calculated 2020-08-02 13:25:00 Memori al Tom Systolic (mm Hg) 2020-06-26 14:15:00 Brian rial Carrie Diastolic (mm Hg) 2020-06-26 14:15:00 Mem orial Tom Heart Rate 2020-06-26 14:15:00 [facility] Respitory Rate 2020-06-26 14:15:00 Memori al Tom Height 2020-06-26 14:15:00 152.4 cm [facility] Weight 2020-06-26 14:15:00 [facility] BMI Calculated 2020-06-26 14:15:00 Memori al Tom BMI Calculated 2019-02-18 15:26:00 Memori al Carrie Height 2019-02-18 15:26:00 568.96 cm [facility] Weight 2019-02-18 15:26:00 [facility] Systolic (mm Hg) 2019-02-18 15:26:00 Brian long Carrie Diastolic (mm Hg) 2019-02-18 15:26:00 Honey odmo Tom Respitory Rate 2019-02-18 15:26:00 Honeybrenda acosta Tom Heart Rate 2019-02-18 15:26:00 [facility] Tom Procedures Procedure Date / Time Performed Performing Clinician Sour e EKG-12 LEAD 2022-05-12 17:57:25 Nneka German [facility] CT CHEST PULMONARY 2022-05-12 16:45:42 Nneka German [facility] ANGIOGRAM Medical Branch XR CHEST 2 VW 2022-05-12 16:27:14 Nneka German [facility] LIPASE 2022-05-12 15:44:00 Nneka German [facility] TROPONIN I 2022-05-12 15:44:00 Nneka German [facility] COMP. METABOLIC PANEL 2022-05-12 15:44:00 Nneka German [facility] ([id number]) Medical Branch CBC WITH DIFF 2022-05-12 15:44:00 Nneka German [facility] ACTIVATED PARTIAL 2022-05-12 15:44:00 Nneka German [facility] THRFormerly [facility] Branch COVID-19 (ID NOW 2022-05-12 15:44:00 nNeka German [facility] RAPID TESTING) Medical Branch CONSENT/REFUSAL FOR 2022-05-12 15:20:26 Doctor Unassigned, No Un [facility] DIAGNOSIS AND Name Medical Branch TREATMENT POCT SARS-COV-2 2022-04-28 17:33:00 Lexi Aleman [facility] ANTIGEN (BINAX NOW) Medical Bran ch Plan of Care Planned Activity Planned Date Details Comments Source Future Scheduled 2023-06-[address] [facility] Test 00:00:00 (Season Ended) [code = Medic al Center Influenza Vaccine (Season Ended)] Future Scheduled 2022-10-[address] [facility] Test 00:00:00 (12+) [code = Medical Center DEPRESSION SCREENING (12+)] Future Scheduled 2014 SHINGLES VACCINES ([address] [facility] Test 00:00:00 2) [code = SHINGLES Medical Center VACCINES (1 of 2)] Future Scheduled 2009 Lipid panel (procedure) [facility] Test 00:00:00 [code = 19177203] Medical Ce nter Future Scheduled 1985 Screening for malignant [facility] Test 00:00:00 neoplasm of cervix Medical C enter (procedure) [code = 571351392] Future Scheduled 1983 DTAP/TDAP/TD VACCINES [facility] Test 00:00:00 (1 - Tdap) [code = Medical C enter DTAP/TDAP/TD VACCINES (1 - Tdap)] Future Scheduled 1982 HEPATITIS C SCREENING [facility] Test 00:00:00 [code = HEPATITIS C Medical Center SCREENING] Future Scheduled [address] [facility] Test 00:00:00 Counseling and Medical Cente r Screening (12+) [code = Tobacco Cessation Counseling and Screening (12+)] Future Scheduled 1964 COVID-19 VACCINE (#1) [facility] Test 00:00:00 [code = COVID-[address] VACCINE (#1)] Future Scheduled 1964 Screening for malignant [facility] Test 00:00:00 neoplasm of breast Medical C enter (procedure) [code = 539663566] Future Scheduled 1964 CT Colonography (combo) [facility] Test 00:00:00 [code = CT Colonography [facility] (combo)] Future Scheduled 1964 Screening for malignant [facility] Test 00:00:00 neoplasm of colon Medical Ce nter (procedure) [code = 106052486] Future Scheduled 1964 Screening for malignant [facility] Test 00:00:00 neoplasm of colon Medical Ce nter (procedure) [code = 957044870] Future Scheduled 1964 Screening for malignant [facility] Test 00:00:00 neoplasm of colon Medical Ce nter (procedure) [code = 290930836] Future Scheduled 1964 Screening for malignant [facility] Test 00:00:00 neoplasm of colon Medical Ce nter (procedure) [code = 860801273] Future Scheduled 1964 Sigmoidoscopy [code = [facility] Test 00:00:00 Sigmoidoscopy] Medical Yoli r Encounters Start End Encounter Admission Attending Care Care Encounter Source Date/Time Date/Time Type Type Clinicians Facility Department ID 2021-11-20 [facility] [id number] Common 13:13:56 Stu [id number] [facility] 2021-11-20 [facility] [id number] Common 13:00:37 Stu [id number] [facility] 2021-11-20 [facility] Ayon[facility] [id number] Common 12:56:11 Stu [id number] [facility] 2021-11-20 Outpatient Magnolia, [facility] [id number] Common 12:01:52 [place] [id number] [facility] 2023-06-26 2023-06-26 Outpatient AZAR, [facility] SLE [id number] SLE 00:00:00 00:00:00 MEAGN 2022-10-24 2022-10-24 [facility] 1.2.840.114 [id number] Univers 00:00:00 00:00:00 Jesus Manuel [employer] (mytaxi) [id number] it y of [place] [id number] [place] [phone] [address] OFFICE [facility] 2022-10-23 2022-10-23 Telephone [facility] 1.2.840.114 [id number] Univers 00:00:00 00:00:00 Jesus Manuel Naik [employer] (mytaxi) [id number] it y of [place] [id number] [place] [phone] [address] OFFICE [facility] 2022-10-10 2022-10-10 Outpatient R [facility] [id number] Univers 08:11:24 23:59:00 JESUS MANUEL last [facility] 2022-10-10 2022-10-10 Office [facility] 1.2.183.011 [id number] Univers 10:15:00 10:15:00 Visit Jesus Manuel Naik [employer] (mytaxi) [id number] it y of [place] [id number] [place] [phone] Ct sergo [address] MEDICAL OFFICE BUILDING 2022-08-10 2022-08-10 Refill Aguiar, [facility] 1.2.840.114 [id number] Univers 00:00:00 00:00:00 [facility] HEALTH [id number] it y of [place] [id number] [place] [phone] Ct sergo [address] MEDICAL OFFICE BUILDING 2022-07-19 2022-07-19 Refill Aguiar, [facility] 1.2.840.114 [id number] Univers 00:00:00 00:00:00 [facility] HEALTH [id number] it [facility] [id number] [place] [phone] Ct sergo [address] [facility] OFFICE [facility] 2022-06-11 2022-06-11 Refill Aguiar, [facility] 1.2.840.114 [id number] Univers 00:00:00 00:00:00 Replaced by [facility] [id number] it y of [place] 4.2.7.2.686 [place] [phone] Ct sergo [address] [facility] OFFICE [facility] 2022-05-31 2022-05-31 Refill Aguiar, [facility] 1.2.840.114 [id number] Univers 00:00:00 00:00:00 Replaced by [facility] [id number] it y of [place] 4.2.7.2.686 [place] [phone] Ct sergo [address] MEDICAL OFFICE [facility] 2022-05-12 2022-05-12 Emergency [facility] ERT [id number] Univers 10:26:00 13:28:00 NNEKA last [facility] 2022-05-12 2022-05-12 Emergency Bal [facility] 1.2.161.114 [id number] Univers 10:26:00 13:28:00 Nneka [facility] [id number] [place]y [place] 4.2.7.2.686 [place] [facility] [phone] [place] [address] [address] 2022-05-12 2022-05-12 Orders Doctor LAURITA 1.2.840.114 [id number] Univers 00:00:00 00:00:00 Only Unassigned, KAREEN [id number] ity of [place] [facility] 4.2.7.2.686 [place] [phone] [facility] [address] 2022-04-28 2022-04-28 Urgent [facility] 1.2.418.082 [id number] Univers 12:20:00 12:40:00 Care [facility] [id number] it y of [place] 4.2.7.2.686 [place] [phone] [facility] [address] MEDICAL OFFICE [facility] 2022-04-28 2022-04-28 Outpatient R [facility] [id number] Univers 12:20:00 12:20:00 [facility] ity of [facility] 2022-03-29 2022-03-29 Refill [facility] 1.2.840.114 [id number] Univers 00:00:00 00:00:00 Replaced by [facility] 350.1.13.10 it y of [place] 4.2.7.2.686 [place] [phone] [facility] [address] MEDICAL OFFICE [facility] 2022-03-05 2022-03-05 Refroberto [facility] 1.2.840.114 [id number] Univers 00:00:00 00:00:00 Replaced by [facility] 350.1.13.10 it y of [place] 4.2.7.2.686 [place] [phone] [facility] [address] MEDICAL OFFICE [facility] 2021-12-04 2021-12-04 Refroberto [facility] 1.2.840.114 [id number] Univers 00:00:00 00:00:00 Replaced by [facility] [id number] it y of [place] 4.2.7.2.686 [place] [phone] [address] MEDICAL OFFICE [facility] 2021-10-21 2021-10-21 Emergency X [facility] ERT [id number] Univers 10:47:00 14:42:00 EMIL last [facility] 2021-10-21 2021-10-21 Emergency [facility] 1.2.840.114 [id number] Univers 10:47:00 14:42:00 Emil PINA 350.1.13.10 i ty [place] 4.2.7.2.686 [place] [phone] [place] 0[address]44 [address] 2021-10-21 2021-10-21 Orders Doctor LAURITA 1.2.840.114 [id number] Univers 00:00:00 00:00:00 Only Unassigned, KAREEN 350.1.13.10 ity of [place] [facility] 4.2.7.2.686 [place] [phone] [address] 2021-09-10 2021-09-10 Out[facility] [id number] Univers 12:00:00 12:03:42 ANTHONY [facility] 2021-09-10 2021-09-10 Office [facility] 1.2.840.114 [id number] Univers 11:24:11 12:03:42 Visit Replaced by [facility] 350.1.13.10 it y of [place] 4.2.7.2.686 [place] [phone] [address] MEDICAL OFFICE [facility] 2021-09-05 2021-09-05 Orders Doctor LAURITA 1.2.840.114 [id number] Univers 00:00:00 00:00:00 Only Unassigned, KAREEN 350.1.13.10 ity of [place] [facility]OSPITAL 4.2.7.2.686 [place] [phone] [address] 2021-07-15 2021-07-15 Orders Doctor LAURITA 1.2.840.114 [id number] Univers 00:00:00 00:00:00 Only Unassigned, KAREEN 350.1.13.10 ity of [place] [facility]OSP[facility] 4.2.7.2.686 [place] [phone] [address] 2021-06-19 2021-06-19 Office [facility] 1.2.840.114 [id number] Univers 09:19:51 10:50:09 Visit [facility] 350.1.13.10 it y of [place] 4.2.7.2.686 [place] [phone] Ct sergo [address] Medical Office Building 2021-06-19 2021-06-19 Outpatient [facility] [id number] Univers 09:30:00 09:30:00 [facility] ity [facility] 2021-03-18 2021-03-18 Orders Doctor LAURITA 1.2.840.114 [id number] Univers 00:00:00 00:00:00 Only Unassigned, KAREEN 350.1.13.10 [facility] 4.2.7.2.686 [place] [phone] [address] 2020-11-02 2020-11-02 Ambulatory nullFlavo MNA [id number] Memoria 15:15:00 15:15:00 Pre-Reg r Neurology 05 l Jimi Santos 2020-11-02 2020-11-02 Outpatient MHIE MHIE [id number] Memoria 09:15:00 09:15:00 05 l Tom 2020-11-02 2020-11-02 Outpatient Aaliyah MHMISCHER MHMISCHER [id number] 09:15:00 09:15:00 Jose 05 Shorty 2020-08-02 2020-08-03 Outpatient nullFlavo MNA [id number] Memoria 13:15:00 04:59:59 r Neurology 04 l Jimi Santos 2020-08-02 2020-08-02 Outpatient Aaliyah MHMISCHER MHMISCHER [id number] 08:15:00 23:59:59 Jose 04 Shorty 2020-08-02 2020-08-02 Outpatient MHIE MHIE [id number] Memoria 08:15:00 08:15:00 04 eloina Santos 2020 2020 Outpatient IVONNE [facility] [id number] [address] [place] [address] 00:00:00 00:00:[address] MAHSA [address] 2020-06-26 2020-06-27 Outpatient nullFlavo MNA [id number] Memoria 14:15:00 04:59:59 r Neurology 03 l Wallsashley Santos 2020-06-26 2020-06-26 Outpatient Aaliyah MISCHER MISCHER [id number] 09:15:00 23:59:59 Jose 03 Shorty 2020-06-26 2020-06-26 Outpatient MHIE MHIE [id number] Memoria 09:15:00 09:15:00 03 l Carrie 2020-06-06 2020-06-06 Outpatient IVONNE, [facility] [id number] [place] 00:00:00 00:00:00 MAHSA [address] 2020-05-13 2020-05-13 Laboratory Lab, [facility] Fam Pob I [facility] 1.2. 840.114 [id number] [facility] 13:33:49 13:53:49 Only [facility] 350.1.13.10 ity of [place] 4.2.7.2.686 [place] Professio [phone] Ct dical nal [address] Office Building [facility] 2020-05-13 2020-05-13 Laboratory Lab, [facility] [place] 1.2.840.114 [id number] 13:33:49 13:53:49 Only Fam Pob I Health 350.1.13.10 [place] 4.2.7.2.686 Professio [phone] nal [address] Office [address] [facility] 2020-04-10 2020-04-10 Outpatient IVONNE, [facility] [id number] [place] 00:00:00 00:00:00 MAHSA [address] 2020-02-06 2020-02-06 Outpatient IVONNE, [facility] [id number] [place] 00:00:00 00:00:00 MAHSA [address] 2019-12-22 2019-12-22 Outpatient IVONNE, [facility] [id number] [place] 00:00:00 00:00:00 MAHSA [address] 2019-12-22 2019-12-22 Outpatient IVONNE, [facility] [id number] [place] 00:00:00 00:00:00 MAHSA [address] 2019-12-22 2019-12-22 Outpatient IVONNE, [facility] [id number] [place] 00:00:00 00:00:00 MAHSA [address] 2019-02-18 2019-02-19 Outpatient nullFlavo MNA [id number] Memoria 15:45:00 04:59:59 r Neurology 02 eloina Walls Tom 2019-02-18 2019-02-18 Outpatient MARTINEZ Fischer PATTI [id number] 10:45:00 23:59:59 Jose 02 Shorty 2019-02-18 2019-02-18 Outpatient [facility] [id number] Memoria 10:45:00 10:45:00 02 eloina Santos 2019-01-19 2019-01-19 Outpatient [facility] [id number] Memoria 14:45:00 14:45:00 01 eloina Santos 2018-12-21 2018-12-21 Outpatient [facility] [id number] Memoria 14:30:00 14:30:00 00 eloina Santos Results Test Description Test Time Test Comments Results Result Comments Source POCT SARS-COV-2 ANTIGEN (BINAX NOW) 2022-04-28 17:33:00 Test Item Value Reference Range Interpretation Comme nts POCT SARS-COV-2 ANTIGEN (test code = 5076) Positive Not Detecte d A On board controls acceptable with C Line (test code = 3574) Yes Lab Interpretation (test code = 09830-5) Abnormal [facility]
--- NOTE | 2023-04-15 08:23 | RAD REPORT ---
EXAM DESCRIPTION: CT - Stone Protocol - 04/15/2023 8:11 am CLINICAL HISTORY: Flank pain. FLANK PAIN COMPARISON: Abdomen Pelvis W Contrast dated 10/16/2021 TECHNIQUE: Axial images were obtained without oral or IV contrast. Lack of contrast limits solid org an and vascular assessment. The guasw-so-uhyc spans the entirety of the system partially obscuring uppermost abdomen and lung bases. Coronal reformatted images were obtained and reviewed. All CT scans are performed using dose optimization technique as appropriate and may include automated exposure control or mA/KV adjustment according to patient size. FINDINGS: The lower lung pemberton are clear. 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 Normal adrenal glands. No pathologic lymphadenopathy in the abdo men or pelvis. No urinary tract stones or obstructive uropathy. No bowel obstruction, free air, free fluid or abscess. Normal appendix noted.Moderate stool is presen t in the rectosigmoid colon. Moderate L5-S1 spondylosis. IMPRESSION: No urinary tract stones or obstructive uropathy.
[2023-04-15 09:25] LABS: Specific Gravity 1.009 (1.005-1.030); Urine Bacteria None Seen /HPF (<20); Urine Bilirubin NEGATIVE (Negative); Urine Blood Negative (Negative); Urine Clarity Turbid (Clear); Urine Color Colorless (Yellow); Urine Glucose NEGATIVE (Negative); Urine Protein NEGATIVE (Negative); Urine RBC <5 /HPF (None Seen); Urine Urobilinogen Normal (Normal); Urine pH 6.5 (5.0-7.0)
[2023-04-15] MEDS ORDERED: KETOROLAC 30 MG/ML INJ ONE (09:30)
[2023-04-15] MEDS ORDERED: NA CHLORIDE 0.9% 50 ML ONE (09:30)
[2023-04-15] MEDS ORDERED: CEFTRIAXONE 1000 MG/VIAL ONE (09:30)
[2023-04-15] MEDS ORDERED: NA CHLORIDE 0.9% 1,000 ML ONE (09:30)
[2023-04-15] MEDS ORDERED: ONDANSETRON 4 MG/2 ML VIAL ONE (09:30)
[2023-04-15 09:37] LABS: Albumin 3.6 g/dL (3.4-5.0); Bilirubin Total 0.6 mg/dL (0.2-1.0); Potassium 3.8 mEq/L (3.5-5.1); Protein, Total 7.9 g/dL (6.4-8.2)
[2023-04-15 09:40] LABS: Absolute Lymphocytes (CBC) 3.4 K/uL (0.7-4.9); Hematocrit 42.1 % (36.0-45.0); Lymphocytes % 25.4 % (15.3-44.8); MCV 88.8 fL (80-100); MPV 9.3 fL (7.6-11.3); RBC Red Blood Cell Count 4.74 M/uL (3.86-4.86)
--- NOTE | 2023-04-15 10:50 | RAD REPORT ---
EXAM DESCRIPTION: CT - Chest For Pe Angio - 04/15/2023 10:33 am CLINICAL HISTORY: Chest pain. CHEST PAIN COMPARISON: CTANGIO CHEST FOR PE dated 12/28/2007 TECHNIQUE: CT angiogram of the pulmonary arteries was performed with MIP. All CT scans are performed using dose optimization technique as appropriate and may include automated exposure control or mA/KV adjustment according to patient size. FINDINGS: No evidence of pulmonary thromboembolism. No acute aortic finding demonstrated. The lungs are clear. No significant pericardial or pleural fluid. No concerning bony finding. IMPRESSION: No evidence of pulmonary thromboembolism. No acute lung findings.
[2023-04-15] MEDS ORDERED: D10W 250 ML IV ONE (10:56)
--- NOTE | 2023-04-15 10:58 | RAD REPORT ---
EXAM DESCRIPTION: CTAbdomen Pelvis W Contrast - 04/15/2023 10:33 am CLINICAL HISTORY: Abdominal pain. ABD PAIN COMPARISON: Abdomen Pelvis W Contrast dated 10/16/2021; Abdomen Pelvis W Contrast dated 9; CT ABD PELVIS W CONTRAST dated 10/27/2015; CT ABD PELVIS W CONTRAST dated 05/10/2015 TECHNIQUE: Biphasic CT imaging of the abdomen and pelvis was performed with 100 ml non-ionic IV cont rast. All CT scans are performed using dose optimization technique as appropriate and may include automated exposure control or mA/KV adjustment according to patient size. FINDINGS: The lung bases are clear. The liver, spleen, pancreas, adrenal glands and kidneys are within normal limits. No bowel obstruction, free air, free fluid or abscess. Small fat containing paraumbilical hernias. Th e appendix is normal. No evidence of significant lymphadenopathy. No suspicious bony findings. IMPRESSION: No acute intra-abdominal or pelvic finding.
--- NOTE | 2023-04-15 11:01 | EDPHYS ---
Physician Documentation [facility] Name: Rosa Crow Age: 57 yrs Sex: Female : 1965 Arrival Date: 04/15/2023 Time: 07:24 Bed 13 Private MD: KAYLIN Physician Dragan Yeh HPI: 04/15 09:20 This 57 yrs old Female presents to ER via Ambulatory with complaints of Flank asad Pain. 09:20 The patient complains of pain in the left low back and left mid back. The pain does not asad radiate. Onset: The symptoms/episode began/occurred 2 day(s) ago. Modifying factors: The symptoms are alleviated by nothing. the symptoms are aggravated by nothing. Associated signs and symptoms: The patient has no apparent associated signs or symptoms. The patient has not experienced similar symptoms in the past. Historical: - Allergies: 07:37 No Known Allergies; ph - PMHx: 07:37 Diabetes - IDDM; early alzheimers; Hypertension; Myocardial infarction; syndrome x; ph - Immunization history:: Adult Immunizations unknown. - Social history:: Smoking status: Patient denies any tobacco usage or history of. - Family history:: not pertinent. ROS: 09:20 Constitutional: Negative for fever, chills, and weight loss, Eyes: Negative for injury, asad pain, redness, and discharge, ENT: Negative for injury, pain, and discharge, Neck: Negative for injury, pain, and swelling, Cardiovascular: Negative for chest pain, palpitations, and edema, Respiratory: Negative for shortness of breath, cough, wheezing, and pleuritic chest pain, : Negative for injury, bleeding, discharge, and swelling, MS/Extremity: Negative for injury and deformity, Skin: Negative for injury, rash, and discoloration, Neuro: Negative for headache, weakness, numbness, tingling, and seizure, Psych: Negative for depression, anxiety, suicide ideation, homicidal ideation, and hallucinations, Allergy/Immunology: Negative for hives, rash, and allergies, Endocrine: Negative for neck swelling, polydipsia, polyuria, polyphagia, and marked weight changes, Hematologic/Lymphatic: Negative for swollen nodes, abnormal bleeding, and unusual bruising. 09:20 Abdomen/GI: Positive for abdominal pain, of the posterior aspect of left lateral abdomen and anterior aspect of left lateral abdomen. 09:20 Back: Positive for decreased range of motion, pain at rest. Exam: 09:20 Constitutional: This is a well developed, well nourished patient who is awake, alert, asad and in no acute distress. Head/Face: Normocephalic, atraumatic. Eyes: Pupils equal round and reactive to light, extra-ocular motions intact. Lids and lashes normal. Conjunctiva and sclera are non-icteric and not injected. Cornea within normal limits. Periorbital areas with no swelling, redness, or edema. ENT: Nares patent. No nasal discharge, no septal abnormalities noted. Tympanic membranes are normal and external auditory canals are clear. Oropharynx with no redness, swelling, or masses, exudates, or evidence of obstruction, uvula midline. Mucous membranes moist. Neck: Trachea midline, no thyromegaly or masses palpated, and no cervical lymphadenopathy. Supple, full range of motion without nuchal rigidity, or vertebral point tenderness. No Meningismus. Chest/axilla: Normal chest wall appearance and motion. Nontender with no deformity. No lesions are appreciated. Cardiovascular: Regular rate and rhythm with a normal S1 and S2. No gallops, murmurs, or rubs. Normal PMI, no JVD. No pulse deficits. Respiratory: Lungs have equal breath sounds bilaterally, clear to auscultation and percussion. No rales, rhonchi or wheezes noted. No increased work of breathing, no retractions or nasal flaring. Abdomen/GI: Soft, non-tender, with normal bowel sounds. No distension or tympany. No guarding or rebound. No evidence of tenderness throughout. Female : Normal external genitalia. Skin: Warm, dry with normal turgor. Normal color with no rashes, no lesions, and no evidence of cellulitis. MS/ Extremity: Pulses equal, no cyanosis. Neurovascular intact. Full, normal range of motion. Neuro: Awake and alert, GCS 15, oriented to person, place, time, and situation. Cranial nerves II-XII grossly intact. Motor strength 5/5 in all extremities. Sensory grossly intact. Cerebellar exam normal. Normal gait. Psych: Awake, alert, with orientation to person, place and time. Behavior, mood, and affect are within normal limits. 09:20 Back: pain, that is mild, ROM is painless, normal spinal alignment noted, CVA tenderness, is absent, muscle spasm. 09:20 Musculoskeletal/extremity: DVT Exam: No signs of deep vein thrombosis. no pain, no swelling, no tenderness, negative Homans' sign noted on exam, no appreciated bluish discoloration, no erythema, no increased warmth. 09:49 ECG was reviewed by the Attending Physician. [facility] Vital Signs: 07:34 BP 154 / 86; Pulse 91; Resp 18; Temp 97.4; Pulse Ox 99% on R/A; Weight 74.84 kg; Height ph 5 ft. 0 in. ; Pain 8/10; 09:21 BP 132 / 96; Pulse 72; Resp 16; Pulse Ox 99% on R/A; db 10:00 BP 128 / 70; Pulse 72; Resp 16; Pulse Ox 98% on R/A; db 12:00 BP 145 / 86; Pulse 78; Resp 16; Pulse Ox 100% on R/A; db 07:34 Body Mass Index 32.22 (74.84 kg, 152.4 cm) ph 07:34 Pain Scale: Adult ph MDM: 07:44 Patient medically screened. asad 09:23 Differential diagnosis: nephrolithiasis, pyelonephritis, UTI, diverticulitis, asad pancreatitis. Data reviewed: vital signs, nurses notes, lab test result(s), EKG, radiologic studies, plain films. Consideration of Admission/Observation Escalation of care including admission/observation considered. I considered the following discharge prescriptions or medication management in the emergency department Medications were administered in the Emergency Department. See MAR. Test considered but Not performed: EKG: . Care significantly affected by the following chronic conditions: Diabetes, Hypertension, Obesity. Counseling: I had a detailed discussion with the patient and/or guardian regarding: the historical points, exam findings, and any diagnostic results supporting the discharge/admit diagnosis, the presence of at least one elevated blood pressure reading (>120/80) during this emergency department visit, lab results, the need for outpatient follow up, for definitive care, a family practitioner. 04/15 07:45 Order name: CBC with Diff; Complete Time: 09:50 [facility] 04/15 07:45 Order name: CMP; Complete Time: 09:50 [facility] 04/15 07:45 Order name: Lipase; Complete Time: 09:50 [facility] 04/15 07:45 Order name: Urinalysis w/ reflexes; Complete Time: 09:50 [facility] 04/15 09:20 Order name: Troponin High Sensitivity; Complete Time: 10:13 [facility] 04/15 10:54 Order name: Glucose, Ancillary Testing; Complete Time: 10:55 [facility] 04/15 10:58 Order name: Urine Culture [facility] 04/15 11:42 Order name: Glucose, Ancillary Testing [facility] 04/15 07:45 Order name: CT Stone Protocol; Complete Time: 09:11 [facility] 04/15 09:20 Order name: CT Chest For PE Angio; Complete Time: 10:52 [facility] 04/15 09:20 Order name: CT Abd/Pelvis - IV Contrast Only [facility] 04/15 09:20 Order name: EKG; Complete Time: 09:21 [facility] 04/15 10:52 Order name: Diet Regular; Complete Time: 10:53 [facility] 04/15 07:45 Order name: IV Saline Lock; Complete Time: 09:11 [facility] 04/15 07:45 Order name: Labs collected and sent; Complete Time: 09:11 [facility] 04/15 09:20 Order name: EKG - Nurse/Tech; Complete Time: 09:33 [facility] EC:49 Rate is 74 beats/min. Rhythm is regular. QRS [place] is Normal. HI interval is normal. QRS asad interval is normal. QT interval is normal. No Q waves. T waves are Normal. No ST changes noted. Clinical impression: Normal ECG and No evidence of ischemia. Interpreted by me. Reviewed by me. Administered Medications: 09:20 Drug: NS 0.9% IV 1000 ml Route: IV; Rate: 1 bolus; Site: right forearm; db 11:00 Follow up: Response: No adverse reaction; IV Status: Completed infusion; IV Intake: db 1000ml 09:24 Drug: Ondansetron IVP 4 mg Route: IVP; Site: right forearm; db 12:25 Follow up: Response: No adverse reaction db 09:25 Drug: TORadol - Ketorolac IVP 15 mg Route: IVP; Site: right forearm; db 12:25 Follow up: Response: No adverse reaction db 09:30 Drug: Rocephin IV 1 grams Route: IV; Rate: per protocol; Site: right forearm; db 09:45 Follow up: Response: No adverse reaction; IV Status: Completed infusion; IV Intake: 50mldb 10:53 Drug: D10 in Water IVP 250 ml Route: IVP; Site: right forearm; db 12:24 Follow up: Response: No adverse reaction db Disposition Summary: 04/15/23 11:01 Discharge Ordered Location: Home asad Problem: new asad Symptoms: have improved asad Condition: Stable asad Diagnosis - Other injury of muscle and tendon of back wall of thorax asad - Other injury of muscle and tendon of front wall of thorax asad - Adverse effect of insulin and oral hypoglycemic [antidiabetic] drugs asad - Type 1 diabetes mellitus with hypoglycemia asad - Elevated white blood cell count asad Followup: asad - With: Private Physician - When: 2 - 3 days - Reason: Recheck today's complaints, Continuance of care, Re-evaluation by your physician Discharge Instructions: - Discharge Summary Sheet asad - Muscle Strain asad - Muscle Pain, Adult asad - Diabetes Mellitus and Nutrition, Adult asad - Muscle Strain, [id number] asad - Leukocytosis asad Forms: - Medication Reconciliation Form asad - Thank You Letter asad - Antibiotic Education asad - Prescription Opioid Use asad - Family Work Release db Prescriptions: - acetaminophen-codeine 300-30 mg Oral tablet - take 2 tablet by ORAL route every 6 hours; 20 tablet; Refills: 0, Product asad Selection Permitted - diclofenac sodium 25 mg Oral tablet, delayed release (enteric coated) - take 1 tablet by ORAL route 3 times per day; 30 tablet; Refills: 0, Product asad Selection Permitted - Cipro 250 mg Oral Tablet - take 1 tablet by ORAL route every 12 hours; 10 tablet; Refills: 0, Product asad Selection Permitted Signatures: Dispatcher [employer] Dragan Lopes MD MD cha Hall, Patricia, RN RN Jayde Fay, RN RN db
--- NOTE | 2023-04-15 11:01 | ER ---
Nurse's Notes [facility] Name: Rosa Crow Age: 57 yrs Sex: Female : 1965 Arrival Date: 04/15/2023 Time: 07:24 Bed 13 Private MD: Diagnosis: Other injury of muscle and tendon of back wall of thorax;Other injury of muscle and tendon of front wall of thorax;Adverse effect of insulin and oral hypoglycemic [antidiabetic] drugs;Type 1 diabetes mellitus with hypoglycemia;Elevated white blood cell count Presentation: 04/15 07:34 Chief complaint: Patient states: Pain in L back under ribs, started last night and ph worse this morning. Also reports increased urination, denies fever N/V. Coronavirus screen: Vaccine status: Patient reports receiving the 2nd dose of the covid vaccine. Ebola Screen: No symptoms or risks identified at this time. Initial Sepsis Screen: Does the patient meet any 2 criteria? No. Patient's initial sepsis screen is negative. Does the patient have a suspected source of infection? No. Patient's initial sepsis screen is negative. Risk Assessment: Do you want to hurt yourself or someone else? Patient reports no desire to harm self or others. Onset of symptoms was April 15, 2023. 07:34 Method Of Arrival: Ambulatory 07:34 Acuity: KATARINA 3 ph Triage Assessment: 09:31 General: Appears in no apparent distress. comfortable, Behavior is calm, cooperative. db Pain: Complains of pain in left mid back. Historical: - Allergies: 07:37 No Known Allergies; ph - PMHx: 07:37 Diabetes - IDDM; early alzheimers; Hypertension; Myocardial infarction; syndrome x; ph - Immunization history:: Adult Immunizations unknown. - Social history:: Smoking status: Patient denies any tobacco usage or history of. - Family history:: not pertinent. Screenin:32 [facility] ED Fall Risk Assessment (Adult) History of falling in the last 3 months, db including since admission No falls in past 3 months (0 pts) Confusion or Disorientation No (0 pts) Intoxicated or Sedated No (0 pts) Impaired Gait No (0 pts) Mobility Assist Device Used No (0 pt) Altered Elimination No (0 pt) Score/Fall Risk Level 0 - 2 = Low Risk Oriented to surroundings, Maintained a safe environment. Abuse screen: Denies threats or abuse. Denies injuries from another. Nutritional screening: No deficits noted. Tuberculosis screening: No symptoms or risk factors identified. Assessment: 09:31 Reassessment: Patient appears in no apparent distress at this time. Patient and/or db family updated on plan of care and expected duration. Pain level reassessed. Patient is alert, oriented x 3, equal unlabored respirations, skin warm/dry/pink. General: Appears in no apparent distress. comfortable, Behavior is calm, cooperative. Pain: Complains of pain in left mid back. Neuro: Level of Consciousness is awake, alert, obeys commands, Oriented to person, place, time, situation. Respiratory: Airway is patent Respiratory effort is even, unlabored, Respiratory pattern is regular, symmetrical. 10:52 Reassessment: Patient appears in no apparent distress at this time. patient requested db staff to check her glucose. Patient's glucose was 46. Patient given crackers and peanut butter notified Dr. Yeh. New order for D10 250 received. 12:23 Reassessment: Patient appears in no apparent distress at this time. Patient and/or db family updated on plan of care and expected duration. Pain level reassessed. Patient is alert, oriented x 3, equal unlabored respirations, skin warm/dry/pink. Patient states feeling better. Patient states symptoms have improved. Vital Signs: 07:34 BP 154 / 86; Pulse 91; Resp 18; Temp 97.4; Pulse Ox 99% on R/A; Weight 74.84 kg; Height ph 5 ft. 0 in. ; Pain 8/10; 09:21 BP 132 / 96; Pulse 72; Resp 16; Pulse Ox 99% on R/A; db 10:00 BP 128 / 70; Pulse 72; Resp 16; Pulse Ox 98% on R/A; db 12:00 BP 145 / 86; Pulse 78; Resp 16; Pulse Ox 100% on R/A; db 07:34 Body Mass Index 32.22 (74.84 kg, 152.4 cm) ph 07:34 Pain Scale: Adult ph ED Course: 07:26 Patient arrived in ED. rg4 07:37 Triage completed. ph 07:37 Arm band placed on Patient placed in waiting room, Patient notified of wait time. ph 07:44 Dragan Yeh MD is Attending Physician. asad 08:13 CT Stone Protocol In Process Unspecified. EDMS 09:11 CBC with Diff Sent. bc6 09:11 CMP Sent. bc6 09:11 Lipase Sent. bc6 09:11 Urinalysis w/ reflexes Sent. bc6 09:11 Inserted saline lock: 20 gauge in right forearm, using aseptic technique. Blood bc6 collected. 09:18 Jayde Gonzalez, RN is Primary Nurse. db 09:28 CBC with Diff Sent. bc6 09:28 CMP Sent. bc6 09:28 Lipase Sent. bc6 09:28 Troponin High Sensitivity Sent. bc6 10:35 CT Chest For PE Angio In Process Unspecified. EDMS 10:35 CT Abd/Pelvis - IV Contrast Only In Process Unspecified. EDMS 11:10 Patient has correct armband on for positive identification. Bed in low position. Call db light in reach. Side rails up X 1. 12:24 Client placed on continuous cardiac and pulse oximetry monitoring. NIBP monitoring db applied. Warm blanket given. 12:24 No provider procedures requiring assistance completed. IV discontinued, intact, db bleeding controlled, No redness/swelling at site. Administered Medications: 09:20 Drug: NS 0.9% IV 1000 ml Route: IV; Rate: 1 bolus; Site: right forearm; db 11:00 Follow up: Response: No adverse reaction; IV Status: Completed infusion; IV Intake: db 1000ml 09:24 Drug: Ondansetron IVP 4 mg Route: IVP; Site: right forearm; db 12:25 Follow up: Response: No adverse reaction db 09:25 Drug: TORadol - Ketorolac IVP 15 mg Route: IVP; Site: right forearm; db 12:25 Follow up: Response: No adverse reaction db 09:30 Drug: Rocephin IV 1 grams Route: IV; Rate: per protocol; Site: right forearm; db 09:45 Follow up: Response: No adverse reaction; IV Status: Completed infusion; IV Intake: 50mldb 10:53 Drug: D10 in Water IVP 250 ml Route: IVP; Site: right forearm; db 12:24 Follow up: Response: No adverse reaction db Medication: 12:23 VIS not applicable for this client. db Intake: 09:45 IV: 50ml; Total: 50ml. db 11:00 IV: 1000ml; Total: 1050ml. db Outcome: 11:01 Discharge ordered by MD. kamara 12:24 Discharged to home ambulatory, with family. shey 12:24 Condition: stable 12:24 Discharge instructions given to patient, family, Instructed on discharge instructions, follow up and referral plans. Prescriptions given X 3. 12:26 Patient left the ED. db Signatures: Dispatcher [employer] EDMI Dragan Yeh MD MD cha Hall, Patricia, RN RN miles Almodovar, Louise rg4 Jayde Gonzalez RN RN Uma Unger 6
[2023-04-15 12:57] VITALS: TEMP 97.4
[2023-04-15 13:01] VITALS: BP 145/86; O2SAT 100
--- NOTE | 2023-04-16 17:43 | EKG ---
Test Date: 2023-04-15 Test Time: 09:32:53 Varnisher: LEXIE MEASUREMENT RESULTS: Intervals: Rate: 74 OH: 152 QRSD: 76 QT: 422 QTc: 468 [place]: P: 52 OH: 152 QRS: 6 T: 28 INTERPRETIVE STATEMENTS: Normal sinus rhythm Normal ECG Compared to ECG 10/16/2021 18:18:49 No significant changes Electronically Signed On 04-16-23 17:40:04 CDT by Ivan Allen
== END 2023-04-15 12:26 | disposition home or self-care (01) ==
LOC: ER 07:24
DX: S29.092A Other injury of muscle and tendon of back wall of thorax, initial encounter (principal); S29.091A Other injury of muscle and tendon of front wall of thorax, initial encounter; E10.649 Type 1 diabetes mellitus with hypoglycemia without coma; D72.829 Elevated white blood cell count, unspecified; T38.3X5A Adverse effect of insulin and oral hypoglycemic [antidiabetic] drugs, initial encounter; G30.9 Alzheimer's disease, unspecified; F02.80 Dementia in other diseases classified elsewhere, unspecified severity, without behavioral disturbance, psychotic disturbance, mood disturbance, and anxiety; I10 Essential (primary) hypertension
CPT/HCPCS: 87088; 85025; 81001; 87086; 36415; 82947 ×2; 84484; 83690; 80053; 76377; 71275; 74176; 74177; Q9967; J2405; J7030; J0696; 93005

== ENCOUNTER 2024-05-01 07:34 | Emergency (ER) | payer BC ==
[2024-05-01] MEDS ORDERED: FAMOTIDINE 20 MG/2 ML VIAL IV ONE (08:30)
[2024-05-01 08:43] LABS: Absolute Basophils 0.1 K/uL (0-0.5); Absolute Eosinophils 0.2 K/uL (0-0.5); Absolute Lymphocytes (CBC) 4.2 K/uL (0.7-4.9); Absolute Monocytes 0.6 K/uL (0.1-1.3); Absolute Neutrophil 5.8 K/uL (1.8-8.0); Basophils % 0.6 % (0-1.3); Eosinophils % 1.4 % (0-4.4); Hematocrit 39.7 % (36.0-45.0); Hemoglobin 13.3 g/dL (12.0-15.0); Lymphocytes % 38.7 % (15.3-44.8); MCH 30.2 pg (27.0-35.0); MCHC 33.4 g/dL (32.0-36.0); MCV 90.6 fL (80-100); MPV 8.9 fL (7.6-11.3); Neutrophils % 53.3 % (41.7-73.7); Nucleated Red Blood Cells % 0.1 % (0-0); Platelets 315 thou/uL (152-406); RBC Red Blood Cell Count 4.38 M/uL (3.86-4.86)
[2024-05-01 08:44] LABS: PT Prothrombin Time 10.7 SECONDS (9.4-12.5); Protime INR 0.97
[2024-05-01 08:58] LABS: Anion Gap 4.5 mEq/L (5.0-15.0); Potassium 3.5 mEq/L (3.5-5.1); Troponin High Sensitivity 4.3 pg/mL (<58.9)
--- NOTE | 2024-05-01 09:40 | RAD REPORT ---
EXAM DESCRIPTION: Dinah Single View05/01/2024 9:21 am CLINICAL HISTORY: Chest pain COMPARISON: 2020 FINDINGS: The lungs appear clear of acute infiltrate. The heart is normal size IMPRESSION: No acute abnormalities displayed
--- NOTE | 2024-05-01 10:35 | ER ---
Nurse's Notes [facility] Name: Rosa Crow Age: 58 yrs Sex: Female : 1965 Arrival Date: 05/01/2024 Time: 07:34 Bed 14 Private MD: Diagnosis: Chest pain, unspecified Presentation: 05/01 08:22 Chief complaint: Patient states: Intermittent chest pain started at 3 a.m. this rs5 morning. Coronavirus screen: At this time, the client does not indicate any symptoms associated with coronavirus-19. Ebola Screen: No symptoms or risks identified at this time. Initial Sepsis Screen: Does the patient meet any 2 criteria? No. Patient's initial sepsis screen is negative. Does the patient have a suspected source of infection? No. Patient's initial sepsis screen is negative. Risk Assessment: Do you want to hurt yourself or someone else? Patient reports no desire to harm self or others. Onset of symptoms was May 01, 2024. 08:22 Method Of Arrival: Ambulatory rs5 08:22 Acuity: KATARINA 3 rs5 Historical: - Allergies: 08:23 No Known Allergies; rs5 - PMHx: 08:23 Diabetes - IDDM; early alzheimers; Hypertension; Myocardial infarction; syndrome x; rs5 - PSHx: 08:23 Cholecystectomy; hysterectomy; spleen removal; Part of pancrease removed; rs5 - Immunization history:: Adult Immunizations up to date. - Infectious Disease History:: Denies. - Social history:: Smoking status: Patient denies any tobacco usage or history of. Screenin:44 [facility] ED Fall Risk Assessment (Adult) History of falling in the last 3 months, rs5 including since admission No falls in past 3 months (0 pts) Confusion or Disorientation No (0 pts) Intoxicated or Sedated No (0 pts) Impaired Gait No (0 pts) Mobility Assist Device Used No (0 pt) Altered Elimination No (0 pt) Score/Fall Risk Level 0 - 2 = Low Risk Oriented to surroundings, Maintained a safe environment. 07:44 Abuse screen: Denies threats or abuse. Nutritional screening: No deficits noted. rs5 Tuberculosis screening: No symptoms or risk factors identified. Assessment: 07:44 General: Appears in no apparent distress. uncomfortable, Behavior is calm, cooperative. rs5 Pain: Denies pain. Neuro: Level of Consciousness is awake, alert, obeys commands, Oriented to person, place, time, situation. Cardiovascular: Patient's skin is warm and dry. Rhythm is. Respiratory: Airway is patent Respiratory effort is even, unlabored, Respiratory pattern is regular, symmetrical. GI: Abdomen is round non-distended, Abd is soft and non tender X 4 quads. : No signs and/or symptoms were reported regarding the genitourinary system. EENT: No signs and/or symptoms were reported regarding the EENT system. Derm: Skin is intact, Skin is pink, warm \T\ dry. Musculoskeletal: Range of motion: intact in all extremities. 08:55 Reassessment: Patient and/or family updated on plan of care and expected duration. Pain rs5 level reassessed. Patient is alert, oriented x 3, equal unlabored respirations, skin warm/dry/pink. Patient denies pain at this time. Patient states feeling better. 10:45 Reassessment: Patient appears in no apparent distress at this time. Patient and/or hb family updated on plan of care and expected duration. Pain level reassessed. Patient is alert, oriented x 3, equal unlabored respirations, skin warm/dry/pink. Vital Signs: 08:22 BP 113 / 69; Pulse 70; Resp 17; Temp 97.8(O); Pulse Ox 99% on R/A; rs5 09:32 BP 113 / 72; Pulse 70; Resp 17; Pulse Ox 99% on R/A; rs5 10:37 BP 115 / 77; Pulse 73; Resp 18; Pulse Ox 99% on R/A; rs5 ED Course: 07:39 Patient arrived in ED. mg5 07:44 Patient has correct armband on for positive identification. Placed in gown. Bed in low rs5 position. Call light in reach. Side rails up X2. Client placed on continuous cardiac and pulse oximetry monitoring. NIBP monitoring applied. monitoring manager on. Pulse ox on. 07:51 Robinson Nevarez MD is Attending Physician. ec2 08:21 William Moore, MIKE is Primary Nurse. rs5 08:22 Triage completed. rs5 09:23 XRAY Chest (1 view) In Process Unspecified. EDMS 09:31 No provider procedures requiring assistance completed. rs5 10:45 Provided Education on: FOLLOWUP, MEDICATIONS. hb 10:45 IV discontinued, intact, bleeding controlled, No redness/swelling at site. Pressure hb dressing applied. Administered Medications: 08:43 Drug: Famotidine IVP 20 mg IVP once; dilute with 10 mL 0.9% NaCl; give over 2 minutes rs5 Route: IVP; Site: right antecubital; 09:32 Follow up: Response: No adverse reaction rs5 Medication: 09:32 VIS not applicable for this client. rs5 Outcome: 10:34 Discharge ordered by . ec2 10:45 Discharged to home ambulatory, hb 10:45 Condition: stable 10:45 Discharge instructions given to patient, Instructed on discharge instructions, follow up and referral plans. medication usage, Demonstrated understanding of instructions, follow-up care, medications, Prescriptions given X 1, 10:47 Patient left the ED. Signatures: Dispatcher [employer] Joie Chávez RN RN William Moore RN RN rs5 Amarilys Lang mg5 Robinson Nevarez MD MD ec2
--- NOTE | 2024-05-01 10:35 | EDPHYS ---
Physician Documentation [facility] Name: Rosa Crow Age: 58 yrs Sex: Female : 1965 Arrival Date: 05/01/2024 Time: 07:34 Bed 14 Private MD: ED Physician Robinson Nevarez HPI: 05/01 07:57 This 58 yrs old Female presents to ER via Unassigned with complaints of Chest ec2 Pain. 07:57 Patient arrives today for evaluation of chest pain. States intermittent symptoms ec2 ongoing for the past week. Patient reports that specific alleviating or exacerbating factors. Reports no previous cardiac disease. . Historical: - Allergies: 08:23 No Known Allergies; rs5 - PMHx: 08:23 Diabetes - IDDM; early alzheimers; Hypertension; Myocardial infarction; syndrome x; rs5 - PSHx: 08:23 Cholecystectomy; hysterectomy; spleen removal; Part of pancrease removed; rs5 - Immunization history:: Adult Immunizations up to date. - Infectious Disease History:: Denies. - Social history:: Smoking status: Patient denies any tobacco usage or history of. ROS: 07:57 Constitutional: as per hpi ec2 Exam: 07:57 Constitutional: GEN: NAD Head: atraumatic Eyes: EOMI Ears: External ears are ec2 normal. CV: regular rate LUNGS: no respiratory distress ABD: non-distended, soft, nontender, no guarding, not rigid. SKIN: no evidence of rashes MSK: no evidence of trauma NEURO: moves all extremities equally Vital Signs: 08:22 BP 113 / 69; Pulse 70; Resp 17; Temp 97.8(O); Pulse Ox 99% on R/A; rs5 09:32 BP 113 / 72; Pulse 70; Resp 17; Pulse Ox 99% on R/A; rs5 10:37 BP 115 / 77; Pulse 73; Resp 18; Pulse Ox 99% on R/A; rs5 MDM: 07:51 Patient medically screened. ec2 07:58 Data reviewed: vital signs. ED course: Patient arrives today for evaluation of chest ec2 pain. Examination remarkable for well-appearing nontoxic dividual is otherwise in no acute distress with a reassuring examination. EKG obtained, independently reviewed and interpreted by me, shows normal sinus rhythm, rate of 82, no acute ST segment elevations, intervals are nonconcerning. Will obtain lab work, treat the patient's with Pepcid and reassess. Patient reports no active chest pain at this time. Differential diagnosis includes ACS, anemia, gastritis, pancreatitis. 09:14 ED course: Metabolic profile is reassuring, CBC reassuring, BMP, INR, troponin, lipase ec2 are nonactionable. Will obtain repeat EKG and troponin at the 2-hour dory. . 09:43 ED course: Chest x-ray independently reviewed and interpreted by me, shows no acute ec2 intrathoracic process. Will obtain repeat EKG and troponin.. 09:58 ED course: Repeat EKG independently reviewed and interpreted by me, shows normal sinus ec2 rhythm, rate of 76, no acute ST segment elevations, intervals are nonconcerning. . 10:33 ED course: Repeat troponin is without marked change. On reassessment patient is ec2 well-appearing, reports no recurrence of symptoms. Will discharge home have her follow-up with primary care doctor. Return precautions given.. 05/01 07:51 Order name: Basic Metabolic Panel; Complete Time: 09:14 ec2 05/01 07:51 Order name: CBC with Diff; Complete Time: 09:14 ec2 05/01 07:51 Order name: NT PRO-BNP; Complete Time: 09:14 ec2 05/01 07:51 Order name: PT-INR; Complete Time: 09:14 ec2 05/01 07:51 Order name: Troponin HS; Complete Time: 09:14 ec2 05/01 07:57 Order name: Lipase; Complete Time: 09:14 ec2 05/01 09:41 Order name: Troponin High Sensitivity; Complete Time: 10:30 rs5 05/01 07:51 Order name: XRAY Chest (1 view); Complete Time: 09:43 ec2 05/01 07:51 Order name: Cardiac monitoring; Complete Time: 08:26 ec2 05/01 07:51 Order name: EKG - Nurse/Tech; Complete Time: 08:26 ec2 05/01 07:51 Order name: IV Saline Lock; Complete Time: 08:26 ec2 05/01 07:51 Order name: Labs collected and sent; Complete Time: 08:26 ec2 05/01 07:51 Order name: O2 Per Protocol; Complete Time: 08:26 ec2 05/01 07:51 Order name: O2 Sat Monitoring; Complete Time: 08:26 ec2 Administered Medications: 08:43 Drug: Famotidine IVP 20 mg IVP once; dilute with 10 mL 0.9% NaCl; give over 2 minutes rs5 Route: IVP; Site: right antecubital; 09:32 Follow up: Response: No adverse reaction rs5 Disposition Summary: 05/01/24 10:34 Discharge Ordered Notes: Location: Home ec2 Condition: Stable ec2 Diagnosis - Chest pain, unspecified ec2 Followup: ec2 - With: Private Physician - When: - Reason: Re-evaluation by your physician Discharge Instructions: - Discharge Summary Sheet ec2 - Nonspecific Chest Pain, Adult, [id number] ec2 Forms: - Medication Reconciliation Form ec2 - Antibiotic Education ec2 - Prescription Opioid Use ec2 - Patient Portal Instructions ec2 - Leadership Thank You Letter ec2 Prescriptions: - Pepcid 20 mg Oral Tablet - take 1 tablet ORAL route once daily for 10 days; 10 tablet; Refills: 0, Product ec2 Selection Permitted Signatures: Dispatcher [employer] William Bowling RN RN rs5 Robinson Nevarez MD MD ec2 Corrections: (The following items were deleted from the chart) 07:51 07:51 Chest Single View+RAD.RAD.BRZ ordered. EDMS EDMS 07:58 07:58 LIPASE+C.LAB.BRZ ordered. EDMS EDMS
[2024-05-01 11:05] VITALS: BP 113/72; TEMP 97.8; O2SAT 99
--- NOTE | 2024-05-04 12:18 | EKG ---
Test Date: 2024-05-01 Test Time: 07:50:21 Whiskey Filterer: DUANE MEASUREMENT RESULTS: Intervals: Rate: 82 CA: 146 QRSD: 72 QT: 400 QTc: 467 [place]: P: 52 CA: 146 QRS: 22 T: 40 INTERPRETIVE STATEMENTS: Normal sinus rhythm Normal ECG Compared to ECG 04/15/2023 09:32:53 No significant changes Electronically Signed On 05-04-24 12:13:18 CDT by Kade Franz
== END 2024-05-01 10:47 | disposition home or self-care (01) ==
LOC: ER 07:34
DX: R07.9 Chest pain, unspecified (principal); I10 Essential (primary) hypertension; I25.2 Old myocardial infarction
CPT/HCPCS: 36415; 71045; 80048; 83690; 83880; 84484; 85025; 85610; 93005; 96374; 99284

== ENCOUNTER 2025-07-22 13:35 | Emergency (ER) | payer BC ==
[2025-07-22 15:06] LABS: Absolute Lymphocytes (CBC) 3.4 K/uL (0.7-4.9); Hematocrit 44.0 % (36.0-45.0); Hemoglobin 14.6 g/dL (12.0-15.0); MCH 29.4 pg (27.0-35.0); MCHC 33.2 g/dL (32.0-36.0); MCV 88.4 fL (80-100); MPV 8.6 fL (7.6-11.3); Nucleated RBC Absolute Count 0.0 (0-0); Nucleated Red Blood Cells % 0.0 % (0-0); RBC Red Blood Cell Count 4.98 M/uL (3.86-4.86); White Blood Count 11.10 thou/uL (4.3-10.9)
[2025-07-22 15:27] LABS: ALT/SGPT 25.0 U/L (13-56); AST/SGOT 19.0 U/L (15-37); Albumin 3.7 g/dL (3.4-5.0); Albumin/Globulin Ratio 1.0 (1.1-1.8); Alkaline Phosphatase 121.0 U/L (45-117); Anion Gap 11.3 mEq/L (5.0-15.0); BUN Blood Urea Nitrogen 14.0 mg/dL (7-18); Globulin 3.7 g/dL (2.3-3.5); Glucose Level 81.0 mg/dL (74-106); Lipase 24.0 U/L (13-75); Potassium 3.3 mEq/L (3.5-5.1)
--- NOTE | 2025-07-22 16:24 | RAD REPORT ---
EXAMINATION: CT ABDOMEN AND PELVIS WITH CONTRAST CLINICAL INDICATION: Abdominal pain TECHNIQUE: CT abdomen and pelvis was performed, after the administration of 100 cc Isovue-300.. Sagit mainsha and coronal reconstructions were obtained. One or more of the following dose reduction techniques were used: Automated exposure control, adjustment of the mA and kV according to patient si ze, and iterative reconstruction. Unless otherwise specified, incidental findings do not require dedicated imaging follow-up. [id number]. Oral contrast was not given which limits evaluation of bowel and appendix. COMPARISON: .None FINDINGS: Mild fatty liver. Splenectomy and partial pancreatectomy. Residual pancreas, adrenals and kidneys unremarkable Normal appendix. Hysterectomy. Cholecystectomy. No adnexal mass. Several small ventral hernias containing fat. Wall of the distal esophagus appears thickened. Fluid within nondilated small bowel No evidence of diverticulitis. : IMPRESSION: Fluid within nondilated small bowel may indicate an enteritis Apparent thickening wall of the distal stomach could be secondary to incomplete distention or inflamm ation.
--- NOTE | 2025-07-22 17:13 | ER ---
Nurse's Notes [facility] Name: Rosa Crow Age: 60 yrs Sex: Female : 1965 Arrival Date: 07/22/2025 Time: 13:35 Bed 8 Private MD: Diagnosis: Infectious gastroenteritis and colitis, unspecified;Diarrhea, unspecified;Muscle weakness (generalized) Presentation: 07/22 13:46 Chief complaint: Patient states: SHE HAD UPSET STOMACH ADN DIARRHEA ALL DAY THURSDAY, dd2 THURSDAY DECREASE IN DI[place]A BUT CONTINUED TO HAVE UPSET STOMACH AND STOMACH PAIN. NO APPETITE AND UNABLE TO DRINK. PT DENIES N/V. Coronavirus screen: At this time, the client does not indicate any symptoms associated with coronavirus-19. Ebola Screen: No symptoms or risks identified at this time. Initial Sepsis Screen: Does the patient meet any 2 criteria? No. Patient's initial sepsis screen is negative. Does the patient have a suspected source of infection? No. Patient's initial sepsis screen is negative. Risk Assessment: Do you want to hurt yourself or someone else? Patient reports no desire to harm self or others. Onset of symptoms was July 20, 2025. 13:46 Method Of Arrival: Ambulatory dd2 13:46 Acuity: KATARINA 3 dd2 Triage Assessment: 13:50 General: Appears in no apparent distress. uncomfortable, Behavior is calm, cooperative, dd2 appropriate for age. Pain: Complains of pain in epigastric area, right upper quadrant and left upper quadrant. GI: Reports cramping, diarrhea, intolerance of fluids, intolerance of food. Historical: - Allergies: 13:50 No Known Allergies; dd2 - PMHx: 13:50 Diabetes - IDDM; early alzheimers; Hypertension; Myocardial infarction; syndrome x; dd2 Gastroesophageal reflux disease; - PSHx: 13:50 Cholecystectomy; hysterectomy; Part of pancrease removed; spleen removal; dd2 - Immunization history:: Adult Immunizations up to date. - Infectious Disease History:: Denies. - Social history:: Smoking status: Patient denies any tobacco usage or history of. - Family history:: not pertinent. - Hospitalizations: : No recent hospitalization is reported. Screenin:[address] [facility] ED Fall Risk Assessment (Adult) History of falling in the last 3 months, bp including since admission No falls in past 3 months (0 pts) Confusion or Disorientation No (0 pts) Intoxicated or Sedated No (0 pts) Impaired Gait No (0 pts) Mobility Assist Device Used No (0 pt) Altered Elimination No (0 pt) Score/Fall Risk Level 0 - 2 = Low Risk Oriented to surroundings. Abuse screen: Denies threats or abuse. Denies injuries from another. Nutritional screening: No deficits noted. Tuberculosis screening: No symptoms or risk factors identified. Assessment: 15:00 General: SEE TRIAGE NOTE. bp Vital Signs: 13:46 BP 94 / 62; Pulse 89; Resp 16; Temp 98.4; Pulse Ox 100% on R/A; Pain 5/10; dd2 15:06 BP 107 / 66; Pulse 84; Resp 16; Pulse Ox 99% ; bp 17:31 BP 134 / 81; Pulse 87; Resp 16; Pulse Ox 100% ; bp 13:46 Pain Scale: Adult dd2 ED Course: 13:39 Patient arrived in ED. ts1 13:46 Thomas Medina MD is Attending Physician. rn 13:50 Triage completed. dd2 13:50 Arm band placed on right wrist. dd2 14:28 Delmar Baarjas, MIKE is Primary Nurse. bp 15:00 Initial lab(s) drawn, by ED staff, sent to lab. Inserted saline lock: 20 gauge in right bp antecubital area, using aseptic technique. 15:01 Patient has correct armband on for positive identification. bp 16:18 CT Abd/Pelvis - IV Contrast Only In Process Unspecified. EDMS 16:22 CT Abd/Pelvis - IV Contrast Only In Process Unspecified. EDMS 17:31 No provider procedures requiring assistance completed. IV discontinued, intact, bp bleeding controlled, No redness/swelling at site. Pressure dressing applied. Administered Medications: 14:59 Drug: NS 0.9% IV 1000 ml IV at 1 bolus Per protocol; to be given as a bolus over 60 bp minutes Route: IV; Rate: 1 bolus; Site: right antecubital; 17:30 Follow up: IV Status: Completed infusion bp 17:30 Drug: Ciprofloxacin PO 500 mg PO once Route: PO; bp 17:30 Follow up: Response: No adverse reaction bp 17:30 Drug: metroNIDAZOLE PO 500 mg PO once Route: PO; bp 17:30 Follow up: Response: No adverse reaction bp Medication: 17:32 VIS not applicable for this client. bp Outcome: 17:12 Discharge ordered by . rn 17:31 Discharged to home ambulatory, with family, bp 17:31 Condition: stable 17:31 Discharge instructions given to patient, Instructed on discharge instructions, follow up and referral plans. medication usage, Demonstrated understanding of instructions, follow-up care, medications, Prescriptions given X 3, 17:32 Patient left the ED. bp Signatures: Dispatcher [employer] EDMS Thomas Medina MD MD rn Peltier, Brian RN RN Nitza Hutson PAS PAS ts1 ADRIÁN PRAJAPATI RN RN dd2
--- NOTE | 2025-07-22 17:13 | EDPHYS ---
Physician Documentation [facility] Name: Rosa Crow Age: 60 yrs Sex: Female : 1965 Arrival Date: 07/22/2025 Time: 13:35 Bed 8 Private MD: ED Physician Thomas Medina HPI: 07/22 15:56 This 60 yrs old Female presents to ER via Ambulatory with complaints of rn Abdominal Pain, General Weakness. 15:56 Patient reports upper abdominal pain associated with nonbloody diarrhea. Reports nausea rn but no vomiting. No fever or chills. Does not have a gallbladder. Has had pancreatitis in the past but this feels different.. Historical: - Allergies: 13:50 No Known Allergies; dd2 - PMHx: 13:50 Diabetes - IDDM; early alzheimers; Hypertension; Myocardial infarction; syndrome x; dd2 Gastroesophageal reflux disease; - PSHx: 13:50 Cholecystectomy; hysterectomy; Part of pancrease removed; spleen removal; dd2 - Immunization history:: Adult Immunizations up to date. - Infectious Disease History:: Denies. - Social history:: Smoking status: Patient denies any tobacco usage or history of. - Family history:: not pertinent. - Hospitalizations: : No recent hospitalization is reported. ROS: 15:56 Constitutional: Negative for fever, chills, and weight loss, Cardiovascular: Negative rn for chest pain, palpitations, and edema, Respiratory: Negative for shortness of breath, cough, wheezing, and pleuritic chest pain, Abdomen/GI: Positive for upper abdominal pain with nausea and diarrhea MS/Extremity: Negative for injury and deformity, Skin: Negative for injury, rash, and discoloration, Neuro: Positive for generalized weakness and malaise Exam: 15:56 Constitutional: This is a well developed, well nourished patient who is awake, alert, rn and in no acute distress. Cardiovascular: Regular rate and rhythm. No pulse deficits. Respiratory: No increased work of breathing, no retractions or nasal flaring. Abdomen/GI: Soft, mild epigastric tenderness. No rebound or guarding. MS/ Extremity: Pulses equal, no cyanosis. Neuro: Awake and alert, GCS 15 Vital Signs: 13:46 BP 94 / 62; Pulse 89; Resp 16; Temp 98.4; Pulse Ox 100% on R/A; Pain 5/10; dd2 15:06 BP 107 / 66; Pulse 84; Resp 16; Pulse Ox 99% ; bp 17:31 BP 134 / 81; Pulse 87; Resp 16; Pulse Ox 100% ; bp 13:46 Pain Scale: Adult dd2 MDM: 13:46 Medical Screening Exam initiated rn 17:11 Differential diagnosis: bowel obstruction, diverticulitis, gastritis, gastroesophageal rn reflux disease, non-specific abd pain, pancreatitis, Peptic Ulcer Disease, Perf. Duodenal Ulcer, Perf. Gastric Ulcer. Data reviewed: vital signs, nurses notes, lab test result(s), radiologic studies, CT scan, and as a result, I will discharge patient. Counseling: I had a detailed discussion with the patient and/or guardian regarding the historical points, exam findings, and any diagnostic results supporting the discharge/admit diagnosis, lab results, radiology results, the need for outpatient follow up, to return to the emergency department if symptoms worsen or persist or if there are any questions or concerns that arise at home. Response to treatment: the patient's symptoms have markedly improved after treatment, and as a result, I will discharge patient. Special discussion: Based on the patient's Hx, exam, and Dx evaluation, there is no indication for emergent surgery or inpatient Tx. It is understood by the patient/guardian that if the Sx's persist or worsen they need to return immediately for re-evaluation. I discussed with the patient/guardian in detail that at this point there is no indication for admission to the hospital. It is understood, however, that if the symptoms persist or worsen the patient needs to return immediately for re-evaluation. Based on the history and exam findings, there is no indication for further emergent testing or inpatient evaluation. I discussed with the patient/guardian the need to see the primary care provider for further evaluation of the symptoms. ED course: CT consistent with enteritis. I have personally reviewed all of the results, including but not limited to blood tests and imaging deemed necessary to safely discharge this patient at this time. All results given to and printed out for patient. I personally went over all the results with the patient and answered all questions. Patient will follow-up with PCP and or specialist as discussed. Return precautions given and understood.. 07/22 13:52 Order name: CBC with Diff; Complete Time: 15:27 rn 07/22 13:52 Order name: CMP; Complete Time: 15:27 rn 07/22 13:52 Order name: Lipase; Complete Time: 15:27 rn 07/22 13:52 Order name: CT Abd/Pelvis - IV Contrast Only; Complete Time: 16:33 rn 07/22 16:17 Order name: CT Abd/Pelvis - IV Contrast Only rn 07/22 13:52 Order name: IV Saline Lock; Complete Time: 14:59 rn 07/22 13:52 Order name: Labs collected and sent; Complete Time: 14:59 rn Administered Medications: 14:59 Drug: NS 0.9% IV 1000 ml IV at 1 bolus Per protocol; to be given as a bolus over 60 bp minutes Route: IV; Rate: 1 bolus; Site: right antecubital; 17:30 Follow up: IV Status: Completed infusion bp 17:30 Drug: Ciprofloxacin PO 500 mg PO once Route: PO; bp 17:30 Follow up: Response: No adverse reaction bp 17:30 Drug: metroNIDAZOLE PO 500 mg PO once Route: PO; bp 17:30 Follow up: Response: No adverse reaction bp Disposition Summary: 07/22/25 17:12 Discharge Ordered Notes: Location: Home rn Problem: new rn Symptoms: have improved rn Condition: Stable rn Diagnosis - Infectious gastroenteritis and colitis, unspecified rn - Diarrhea, unspecified rn - Muscle weakness (generalized) rn Followup: rn - With: Private Physician - When: As needed - Reason: Recheck today's complaints, Re-evaluation by your physician Discharge Instructions: - Discharge Summary Sheet rn - Diarrhea, Adult rn Forms: - Medication Reconciliation Form rn - Antibiotic criminal defense attorney - Prescription Opioid Use rn - Patient Portal Instructions rn - Leadership Thank You Letter rn Prescriptions: - ondansetron 4 mg Oral Tablet,disintegrating - take 1 tablet ORAL route every 8 hours As needed as needed for nausea and rn vomiting; 12 tablet; Refills: 0, Product Selection Permitted - Flagyl 500 mg Oral Tablet - take 1 tablet ORAL route every 8 hours for 10 days; 30 tablet; Refills: 0, rn Product Selection Permitted - Cipro 500 mg Oral tablet - take 1 tablet ORAL route every 12 hours for 10 days; 20 tablet; Refills: 0, rn Product Selection Permitted Signatures: Dispatcher [employer] EDThomas Mares MD MD rn Peltier, Brian RN ADRIÁN Espino, RN RN dd2 Corrections: (The following items were deleted from the chart) 13:52 13:52 CBC+H.LAB.BRZ ordered. EDMS EDMS 13:52 13:52 COMPREHENSIVE METABOLIC PANEL+C.LAB.BRZ ordered. EDMS EDMS 13:52 13:52 LIPASE+C.LAB.BRZ ordered. EDMS EDMS 13:52 13:52 Abdomen Pelvis W Con+CT.RAD.BRZ ordered. EDMS EDMS
[2025-07-22] MEDS ORDERED: CIPROFLOXACIN HCL 500 MG TAB ONE (17:23)
[2025-07-22 18:10] VITALS: TEMP 98.4
[2025-07-22 18:13] VITALS: BP 134/81; O2SAT 100
== END 2025-07-22 17:32 | disposition home or self-care (01) ==
LOC: ER 13:35
DX: A09 Infectious gastroenteritis and colitis, unspecified (principal); R11.0 Nausea; I25.2 Old myocardial infarction; K21.9 Gastro-esophageal reflux disease without esophagitis; I10 Essential (primary) hypertension; E11.9 Type 2 diabetes mellitus without complications; G30.0 Alzheimer's disease with early onset; F02.80 Dementia in other diseases classified elsewhere, unspecified severity, without behavioral disturbance, psychotic disturbance, mood disturbance, and anxiety; M62.81 Muscle weakness (generalized)
CPT/HCPCS: 96361; 85025; 36415; 83690; 80053; 74177 ×2; 96360; 99284; Q9967 ×2